=== PATIENT | male | born 1955 | race Caucasian/White ===

== ENCOUNTER 2018-12-22 22:29 | Emergency (ER) | payer SELFPAY ==
[2018-12-22 23:24] LABS: Absolute Lymphocytes (CBC) 0.7 K/uL (0.7-4.9); Eosinophils % 0.5 % (0-4.4); Hematocrit 54.3 % (39.6-49.0); Lymphocytes % 7.4 % (15.3-44.8); MPV 8.9 fL (7.6-11.3); Monocytes % 9.3 % (3.3-12.3); RBC Red Blood Cell Count 6.21 M/uL (4.33-5.43)
[2018-12-22 23:41] LABS: ALT/SGPT 12 U/L (12-78); AST/SGOT 13 U/L (15-37); Alkaline Phosphatase 137 U/L (45-117); BUN Blood Urea Nitrogen 12 mg/dL (7-18); Bicarbonate 30 mmol/L (21-32); Bilirubin Direct 0.7 mg/dL (0-0.2); Bilirubin Total 2.4 mg/dL (0.2-1.0); Glucose Level 270 mg/dL (74-106); Lipase 43 U/L (73-393); Potassium 3.7 mmol/L (3.5-5.1); Sodium Level 136 mmol/L (136-145)
[2018-12-22 23:42] LABS: Protime INR 1.27
[2018-12-22] MEDS ORDERED: NA CHLORIDE 0.9% 500 ML ONE (23:44)
--- NOTE | 2018-12-23 01:45 | ER ---
Nurse's Notes [facility] Name: Gavino Marin Age: 63 yrs Sex: Male : 1955 Arrival Date: 12/22/2018 Time: 22:32 Bed 26 Private MD: Diagnosis: Active gastrointestinal bleeding originating in ascending colon;Renal mass Presentation: 12/22 22:25 Presenting complaint: Patient states: that since 1999 he has had 3 moderate to large fc bloody stools. Denies any dizziness or abd pain. Transition of care: patient was not received from another setting of care. Onset of symptoms was December 22, 2018 at 20:00. Risk Assessment: Do you want to hurt yourself or someone else? Patient reports no desire to harm self or others. Initial Sepsis Screen: Does the patient meet any 2 criteria? HR > 90 bpm. Yes Does the patient have a suspected source of infection? No. Patient's initial sepsis screen is negative. Care prior to arrival: None. 22:25 Method Of Arrival: Ambulatory 22:25 Acuity: MAYKEL 3 fc Historical: - Allergies: 22:41 PENICILLINS; fc - Home Meds: 22:41 aspirin 325 mg Oral TbEC 1 tab once daily [Active]; fc - PMHx: 22:41 lymph edema; Myocardial infarction; fc - PSHx: 22:41 CABG; Hernia repair; fc - Immunization history:: Last tetanus immunization: unknown. - Social history:: Smoking status: Patient/guardian denies using tobacco, Patient uses alcohol, 2-[address] drugs, marijuana, daily. - Ebola Screening: : Patient negative for fever greater than or equal to 101.5 degrees Fahrenheit, and additional compatible Ebola Virus Disease symptoms Patient denies exposure to infectious person Patient denies travel to an Ebola-affected area in the 21 days before illness onset. - Family history:: not pertinent. - Hospitalizations: : No recent hospitalization is reported. Screenin:40 Abuse screen: Denies threats or abuse. Nutritional screening: No deficits noted. fc Tuberculosis screening: No symptoms or risk factors identified. Fall Risk None identified. Assessment: 23:40 General: Appears in no apparent distress. comfortable, Behavior is calm, cooperative, ca1 appropriate for age. Pain: Denies pain. Neuro: Level of Consciousness is awake, alert, obeys commands, Oriented to person, place, time, situation. Cardiovascular: Heart tones S1 S2 present Capillary refill < 3 seconds Patient's skin is warm and dry. Cardiovascular: Edema pitting to left knee, left midcalf, left ankle, left foot, left toes, right knee, right midcalf, right ankle, right foot and right toes. Respiratory: GI: Abdomen is round non-distended, Bowel sounds present X 4 quads. Abd is soft and non tender X 4 quads. Reports diarrhea, bloody stool, since today. : No deficits noted. No signs and/or symptoms were reported regarding the genitourinary system. EENT: No deficits noted. No signs and/or symptoms were reported regarding the EENT system. Derm: Skin is intact, is fragile, Skin is pink, warm \T\ dry. Musculoskeletal: Circulation, motion, and sensation intact. Capillary refill < 3 seconds, Range of motion: intact in all extremities. 12/23 00:46 Reassessment: Reassessment: Patient appears in no apparent distress at this time. ca1 Patient and/or family updated on plan of care and expected duration. Pain level reassessed. Patient is alert, oriented x 3, equal unlabored respirations, skin warm/dry/pink. 01:14 Reassessment: Patient appears in no apparent distress at this time. Patient and/or cc3 family updated on plan of care and expected duration. Pain level reassessed. Patient is alert, oriented x 3, equal unlabored respirations, skin warm/dry/pink. Dr. Escobar at bedside explaining to the patient his plan of care. Patient denies pain at this time. 02:00 Reassessment: Patient appears in no apparent distress at this time. Patient and/or cc3 family updated on plan of care and expected duration. Pain level reassessed. Patient is alert, oriented x 3, equal unlabored respirations, skin warm/dry/pink. Patient is for transfer to [facility] as a case of active gastrointestinal bleeding originating in ascending colon and renal mass. Report called and handed over to HALIMA Winn. Transfer form completed and signed by the patient himself. Ambulance transport contacted by ED airport clerk. 02:40 Reassessment: Patient passed watery stool, the female relative said the color is cc3 maroony red. 02:50 Reassessment: Patient appears in no apparent distress at this time. Patient and/or cc3 family updated on plan of care and expected duration. Pain level reassessed. Patient is alert, oriented x 3, equal unlabored respirations, skin warm/dry/pink. [facility] came for patient transport. Patient left ER vitally stable by EMS stretcher with his relative. No valuables left bedside. Patient denies pain at this time. Vital Signs: 12/22 22:25 BP 154 / 94; Pulse 106; Resp 19; Temp 97.0(O); Pulse Ox 97% on R/A; Weight 117.93 kg fc (R); Height 5 ft. 10 in. (177.80 cm) (R); Pain 0/10; 23:09 BP 104 / 74; Pulse 94; Resp 17 S; Pulse Ox 97% on R/A; ca1 12/23 00:46 BP 107 / 69; Pulse 106; Resp 19 S; Pulse Ox 97% on R/A; ca1 01:15 BP 92 / 58; Pulse 103; Resp 19 S; Pulse Ox 98% on R/A; cc3 01:43 BP 107 / 75; Pulse 100; Resp 18 S; Pulse Ox 96% on R/A; cc3 02:14 BP 140 / 73; Pulse 104; Resp 19 S; Pulse Ox 100% on R/A; cc3 02:30 BP 135 / 79; Pulse 101; Resp 18 S; Pulse Ox 100% on R/A; cc3 12/22 22:25 Body Mass Index 37.31 (117.93 kg, 177.80 cm) ED Course: 12/22 22:25 Arm band placed on Patient placed in an exam room, on a stretcher. fc 22:32 Patient arrived in ED. fc 22:34 Willard Escobar MD is Attending Physician. rn 22:38 Triage completed. fc 22:40 Patient has correct armband on for positive identification. Bed in low position. Call light in reach. Pulse ox on. NIBP on. 22:50 No provider procedures requiring assistance completed. Inserted saline lock: 20 gauge ca1 in left antecubital area, using aseptic technique. Blood collected. 23:02 Abbie Edmonds, HALIMA is Primary Nurse. ca1 12/23 00:[address] via wheelchair. ca1 00:25 CT completed. Patient tolerated procedure well. Patient moved back from NH. 00:42 CT Abd/Pelvis - IV Contrast Only In Process Unspecified. EDMS 02:08 Inserted 18 gauge 10 cm midline to right upper arm basilic vein on first attempt. Line fc with good blood return and flushes well. 02:55 Patient transferred, IV remains in place. cc3 Administered Medications: 12/22 23:30 Drug: NS 0.9% 500 ml Route: IV; Rate: bolus; Site: left antecubital; cc3 23:53 Follow up: IV Status: Completed infusion ca1 12/23 01:35 Drug: NS 0.9% 1000 ml Route: IV; Rate: 1000 ml; Site: left antecubital; cc3 02:19 Follow up: Response: No adverse reaction; IV Status: Completed infusion; IV Intake: cc3 1000ml Intake: 02:19 IV: 1000ml; Total: 1000ml. cc3 Outcome: 01:44 ER care complete, transfer ordered by . rn 02:55 Transferred by ground EMS to [facility], Transfer form completed. cc3 02:55 Condition: stable 02:55 Instructed on the need for transfer, Demonstrated understanding of instructions. 02:56 Patient left the ED. cc3 Signatures: Dispatcher [employer] EDWI Soren Valles Neelima Brothers, RN RN Willard Escobar MD MD rn Cordel, Charlene [facility] Abbie Edmonds RN RN ca1 Corrections: (The following items were deleted from the chart) 00:46 00:24 Reassessment: ca1 ca1 03:01 02:40 Reassessment: Patient passed again watery stool, the female relative said the cc3 color is maroony red. cc3
--- NOTE | 2018-12-23 01:45 | EDPHYS ---
Physician Documentation [facility] Name: Gavino Marin Age: 63 yrs Sex: Male : 1955 Arrival Date: 12/22/2018 Time: 22:32 Bed 26 Private MD: ED Physician Willard Escobar HPI: 12/22 23:06 This 63 yrs old Male presents to ER via Ambulatory with complaints of Rectal rn Bleeding. 23:06 The patient presents to the emergency department with bleeding from the rectum/anus, rn that is moderate. Onset: The symptoms/episode began/occurred today. Modifying factors: The symptoms are alleviated by nothing, The symptoms are aggravated by bowel movement. Associate signs and symptoms: Pertinent positives: lower GI bleeding, Pertinent negatives: abdominal pain, fever, vomiting. The patient has not experienced similar symptoms in the past. REports was drinking a beer, felt like needed to go to bathroom, moderate amount of bright red blood per rectum and maroon blood, no abd pain, no vomiting, drinks daily but no hx of cirrhosis, takes baby aspirin.. Historical: - Allergies: 22:41 PENICILLINS; fc - Home Meds: 22:41 aspirin 325 mg Oral TbEC 1 tab once daily [Active]; fc - PMHx: 22:41 lymph edema; Myocardial infarction; fc - PSHx: 22:41 CABG; Hernia repair; fc - Immunization history:: Last tetanus immunization: unknown. - Social history:: Smoking status: Patient/guardian denies using tobacco, Patient uses alcohol, 2-[address] drugs, marijuana, daily. - Ebola Screening: : Patient negative for fever greater than or equal to 101.5 degrees Fahrenheit, and additional compatible Ebola Virus Disease symptoms Patient denies exposure to infectious person Patient denies travel to an Ebola-affected area in the 21 days before illness onset. - Family history:: not pertinent. - Hospitalizations: : No recent hospitalization is reported. ROS: 23:06 Constitutional: Negative for fever, chills, and weight loss, Eyes: Negative for injury, rn pain, redness, and discharge, Neck: Negative for injury, pain, and swelling, Cardiovascular: Negative for chest pain, palpitations, and edema, Respiratory: Negative for shortness of breath, cough, wheezing, and pleuritic chest pain, Abdomen/GI: Negative for abdominal pain, nausea, vomiting, + rectal bleeding MS/Extremity: Negative for injury and deformity, Skin: Negative for injury, rash, and discoloration, Neuro: Negative for headache, numbness, tingling, and seizure, + lightheaded Exam: 23:06 Constitutional: This is a well developed, well nourished patient who is awake, alert, rn appears anxious, but not pale Head/Face: Normocephalic, atraumatic. Eyes: Pupils equal round and reactive to light, extra-ocular motions intact. Lids and lashes normal. Conjunctiva and sclera are non-icteric and not injected. Cornea within normal limits. Periorbital areas with no swelling, redness, or edema. ENT: MMM Cardiovascular: tachycardic, regular, no murmur Respiratory: Mild tachypnea, no retractions, speaks full sentences Abdomen/GI: soft, non-tender, non-distended, no masses MS/ Extremity: + bilateral lymphedema, no warmth or bullae Neuro: Awake and alert, GCS 15, oriented to person, place, time, and situation. Cranial nerves II-XII grossly intact. Motor strength 5/5 in all extremities. Sensory grossly intact. Cerebellar exam normal. Normal gait. Vital Signs: 22:25 BP 154 / 94; Pulse 106; Resp 19; Temp 97.0(O); Pulse Ox 97% on R/A; Weight 117.93 kg fc (R); Height 5 ft. 10 in. (177.80 cm) (R); Pain 0/10; 23:09 BP 104 / 74; Pulse 94; Resp 17 S; Pulse Ox 97% on R/A; ca1 12/23 00:46 BP 107 / 69; Pulse 106; Resp 19 S; Pulse Ox 97% on R/A; ca1 01:15 BP 92 / 58; Pulse 103; Resp 19 S; Pulse Ox 98% on R/A; cc3 01:43 BP 107 / 75; Pulse 100; Resp 18 S; Pulse Ox 96% on R/A; cc3 02:14 BP 140 / 73; Pulse 104; Resp 19 S; Pulse Ox 100% on R/A; cc3 02:30 BP 135 / 79; Pulse 101; Resp 18 S; Pulse Ox 100% on R/A; cc3 12/22 22:25 Body Mass Index 37.31 (117.93 kg, 177.80 cm) fc MDM: 12/22 22:34 Patient medically screened. rn 23:16 ED course: Pt hard large amount of bright red blood pass here in bathroom, I looked at rn toilet, mainly blood, very little stool. . 12/23 01:11 ED course: Pt with active bleed seen mid ascending colon, paged Dr. Benito, his INFRASTRUCTURE DESIGN ENGINEER rn answered, she states will try and get a hold of him and get back to me. . 01:19 ED course: Dr. Benito requests transfer for possible interventional radiology given rn right sided bleeding and extravasation on CT.. 01:33 Differential diagnosis: bleeding diverticula. Data reviewed: vital signs, nurses notes, machine lead burner test result(s), radiologic studies, CT scan, and as a result, I will admit patient. Counseling: I had a detailed discussion with the patient and/or guardian regarding: the historical points, exam findings, and any diagnostic results supporting the discharge/admit diagnosis, lab results, radiology results, the need to transfer to another facility, for higher level of care, [facility] does not immediately have the required specialist. Response to treatment: the patient's symptoms have mildly improved after treatment, and as a result, I will admit patient. Admission orders: after a detailed discussion of the patient's condition and case, the admit orders are written by me. ED course: Pt with small drop in BP, now 90/57, new fluid bolus ordered, is sitting upright in recliner, awaiting call back from [facility]. . 01:41 ED course: Accepted by GI and ICU doctor at [facility], is NPO, fluids going, will need rn embolization. . 02:15 ED course: Larger midline placed, BP improving with fluids. No longer feels rn lightheaded. . 12/22 22:35 Order name: Basic Metabolic Panel; Complete Time: 00:36 rn 12/22 22:35 Order name: CBC with Diff; Complete Time: 23:38 rn 12/22 22:35 Order name: Hepatic Function; Complete Time: 00:36 rn 12/22 22:35 Order name: Lipase; Complete Time: 00:36 rn 12/22 22:35 Order name: PT-INR; Complete Time: 00:36 rn 12/22 22:35 Order name: Ptt, Activated; Complete Time: 00:36 rn 12/22 22:35 Order name: IV Saline Lock; Complete Time: 23:54 rn 12/22 22:35 Order name: Labs collected and sent; Complete Time: 23:54 rn 12/22 22:35 Order name: Type And Screen; Complete Time: 00:36 rn 12/22 23:08 Order name: CT Abd/Pelvis - IV Contrast Only rn 12/23 01:41 Order name: NPO; Complete Time: 01:42 rn Administered Medications: 12/22 23:30 Drug: NS 0.9% 500 ml Route: IV; Rate: bolus; Site: left antecubital; cc3 23:53 Follow up: IV Status: Completed infusion ca1 12/23 01:35 Drug: NS 0.9% 1000 ml Route: IV; Rate: 1000 ml; Site: left antecubital; cc3 02:19 Follow up: Response: No adverse reaction; IV Status: Completed infusion; IV Intake: cc3 1000ml Disposition: 12/23/18 01:44 Transfer ordered to [facility]. Diagnosis are Active gastrointestinal bleeding originating in ascending colon, Renal mass. - Reason for transfer: Higher level of care. - Accepting physician is Dr. Mcdaniels. - Condition is Fair. - Problem is new. - Symptoms are unchanged. Critical care time excluding procedures: 01:41 Critical care time: Bedside Care: 25 minutes, Consultation: 5 minutes. Total time: 30 rn minutes Signatures: Dispatcher [employer] EDNeelima Rosen RN RN fc Nieto, Roman, MD MD rn Cordel, Charlene cc3 Abbie Edmonds RN ca1 Corrections: (The following items were deleted from the chart) 02:56 01:44 12/23/2018 01:44 Transfer ordered to [facility]. Diagnosis is cc3 Active gastrointestinal bleeding originating in ascending colon; Renal mass. Reason for transfer: Higher level of care. Accepting physician is Dr. Mcdaniels. Condition is Fair. Problem is new. Symptoms are unchanged. rn
[2018-12-23] MEDS ORDERED: NA CHLORIDE 0.9% 1,000 ML ONE (01:52)
--- NOTE | 2018-12-23 12:36 | RAD REPORT ---
EXAM DESCRIPTION: CT - Abdomen Pelvis W Contrast - 12/23/2018 7:16 am ADDENDUM #1 THIS REPORT CONTAINS FINDINGS THAT MAY BE CRITICAL TO PATIENT CARE: The findings were verbally discu ssed via telephone conference with Dr. Willard Escoabr by Dr. Jayme Quijano on 12/23/2018 12:55 AM CDT. The results were acknowledged and understood. Electronically signed by: Jayme Quijano 12/23/2018 1:07 AM CDT End of Addendum EXAM DESCRIPTION: CT ABDOMEN AND PELVIS WITH CONTRAST CLINICAL HISTORY: LOWER GI BLEED COMPARISON: None Available. TECHNIQUE: CT of the abdomen and pelvis performed following IV administration of iodinated contrast. Arterial, venous, and delayed phase imaging obtained. DLP: 3572.2 mGycm FINDINGS: Lung Bases: Small bilateral pleural effusions. Coronary artery atherosclerosis. Bones: Degenerative endplate spondylosis and facet arthropathy. Abdomen: Liver: The liver has normal size and density. No intrahepatic mass or biliary dilatation. Gallbladder: No calcified gallstones. Spleen, Pancreas, and Adrenal Glands: The spleen, pancreas, and adrenal glands are unremarkable. Kidneys: There is a heterogeneous enhancing mass arising from the right kidney measuring 9.7 x 9.9 x 9.4 cm. No hydronephrosis. No definite involvement of the right renal vein. Vasculature: Aortoiliac atherosclerosis. IVC is unremarkable. Fusiform infrarenal abdominal aortic an eurysm measuring 3.4 cm. The portal vein is patent. The proximal visceral and renal arteries are zepeda nt. Stomach: The stomach and duodenum have normal course. Other: No free intraperitoneal air. Fat-containing umbilical hernia. Postoperative change in the an terior abdominal wall. No free fluid or lymphadenopathy. Pelvis: Bladder: Urinary bladder is unremarkable. Bowel: Active contrast extravasation identified in the ascending colon appearing to arise from an a nterior diverticulum. Scattered diverticula throughout the colon. No pelvic inflammatory change. No d ilated loops of large or small bowel. Appendix: Normal appendix. Pelvis: Prostate is not enlarged. IMPRESSION: 1. Findings compatible with active bleeding in the mid ascending colon likely arising fr om an anterior diverticulum. 2. Large heterogeneous right renal mass measuring 9.9 cm in greatest dimension compatible with renal cell carcinoma. 3. 3.4 cm abdominal aortic aneurysm. Recommend follow-up every 3 years. Reference: J Am Tory Radiol 2013;10:789-794. 4. Small bilateral pleural effusions. This exam was performed according to our departmental dose-optimization program, which includes autom ated exposure control, adjustment of the mA and/or kV according to patient size and/or use of iterati ve reconstruction technique. Electronically signed by: Jayme Quijano 12/23/2018 12:59 AM CDT Due to temporary technical issues with the PACS/Fluency reporting system, reports are being signed by the in house radiologist as a courtesy to ensure prompt reporting. The interpreting radiologist is f ully responsible for the content of the report.
== END 2018-12-23 02:56 | disposition short-term general hospital (02) ==
LOC: ER 22:29
DX: K92.2 Gastrointestinal hemorrhage, unspecified (principal); N28.89 Other specified disorders of kidney and ureter; I25.2 Old myocardial infarction; Z88.0 Allergy status to penicillin; Z79.82 Long term (current) use of aspirin
CPT/HCPCS: 36415; 74177; 80048; 80076; 83690; 85025; 85610; 85730; 86850; 86900; 86901; 96360; 99285; J7030; Q9967

== ENCOUNTER 2019-11-13 09:40 | Emergency (ER) | payer OTHER, BC ==
--- OUTSIDE RECORDS SUMMARY | 2019-11-13 09:45 | XMS REPORT | Clinical Summary ---
:1955 Author Organization [facility] Address [address] [place] [address] Care Team Providers Name Role Phone Unavailable Primary Care Provider Unavailable Allergies Active Allergy Reactions Severity Noted Date Comments Penicillins 12/23/2018 Mother had PCN allergy, states children were "tested fo r allergy" and was told he was allergic Medications Medication Sig Dispensed Refills Start Date End Date Status aspirin 81 MG Take 1 tablet 30 tablet 11 12/29/2018 A ctive chewable tablet (81 mg total) 0 by mouth daily. carvedilol (COREG) Take 1 tablet 60 tablet 11 12/29/2018 Active 3.125 MG tablet (3.125 mg 0 total) by mouth 2 (two) times daily. atorvastatin Take 1 tablet 30 tablet 11 12/29/2018 Ac tive (LIPITOR) 40 MG (40 mg total) 0 tablet by mouth nightly. metFORMIN Take 1 tablet 60 tablet 11 12/29/2018 Activ e (GLUCOPHAGE) 850 (850 mg total) 0 MG tablet by mouth 2 (two) times daily with breakfast and dinner. glipiZIDE Take 1 tablet 60 tablet 11 12/29/2018 Activ e (GLUCOTROL) 5 MG (5 mg total) by 0 tablet mouth 2 (two) times daily before meals. aspirin 325 MG Take 325 mg by 0 Discontinued tablet mouth daily. 9 pantoprazole Take 1 tablet 30 tablet 0 12/29/2018 Ex pired (PROTONIX) 40 MG (40 mg total) 9 tablet by mouth daily for 30 days. tamsulosin Take 1 capsule 30 capsule 1 12/29/2018 Ex pired (FLOMAX) 0.4 mg (0.4 mg total) 9 Cap 24 hr capsule by mouth daily for 30 days. Active Problems Problem Noted Date GI bleed 12/23/2018 Encounters Date Type Specialty Care Team Description 12/27/2018 Orders Only General Internal Medicine 12/26/2018 Anesthesia Event Gastroenterology Armando Woo MD 12/26/2018 Surgery Gastroenterology Joshua Harper, COLONOSCO RAIN,POLYPECTO MD RILEY 12/23/2018 Hospital General Internal Terrence Paul, Acute b lood loss anemia; - Encounter Medicine Jonathan Huston, Gastrointest inal hemorrhage associated with intestinal diverticulosis; 12/29/2018 Type 2 diabetes mellitus with hyperglyce patel, without long-term current use of insulin ([facility]); Ant, Morbid obesity with BMI of 40.0-44.9, adult ([facility]); Jayme Gastrointestina l hemorrhage, unspecified gastrointestinal hemorrhage type; MD Natalie DEANNA (acute kidney injury) ([facility]); Marcial Cash, Bilateral r enal masses; MD Francesco [place] ma; Coronary artery disease involving wainwright coronary artery of wainwright heart without angina pectoris; Hx of CABG; Preop cardiovas cular exam; Urinary obstruc tion; Preoperative ca rdiovascular examination 12/23/2018 Travel after 11/12/2018 Social History Tobacco Use Types Packs/Day Years Used Date Former Smoker Cigarettes 0.5 20 Smokeless Tobacco: Never Used Alcohol Use Drinks/Week oz/Week Comments Yes 21 Cans of beer 12.6 7-8 cans daily Alcohol Habits Answer Date Recorded How often do you have a drink containing 4 or more times a w [place] 12/27/2018 alcohol? How many drinks containing alcohol do you have 7 to 9 12/27/2018 on a typical day when you are drinking? How often do you have six or more drinks on one Daily or shekhar ost daily 12/27/2018 occasion? Sex Assigned at Date Recorded Not on file Job Start Date Occupation Industry Not on file Not on file Not on file Travel History Travel Start Travel End No recent travel history available. Last Filed Vital Signs Vital Sign Reading Time Taken Blood Pressure 137/63 12/29/2018 7:56 AM CDT Pulse 88 12/29/2018 8:10 AM CDT Temperature 36.2 C (97.2 F) 12/29/2018 7:56 AM CDT Respiratory Rate 16 12/29/2018 8:10 AM CDT Oxygen Saturation 98% 12/29/2018 8:10 AM CDT Inhaled Oxygen Concentration - - Weight 124.7 kg (275 lb) 12/29/2018 6:00 AM CDT Height 177.8 cm (5' 10") 12/23/2018 4:00 AM CDT Body Mass Index 39.46 12/29/2018 6:00 AM CDT Plan of Treatment Not on file Procedures Procedure Name Priority Date/Time Associated Comments Diagnosis RHYTHM STRIP - SCAN 12/31/2018 2:40 PM CDT TRANSFUSION SERVICE 12/29/2018 5:50 REPORT - SCAN PM CDT POCT-GLUCOSE METER Routine 12/29/2018 8:39 Resul ts for this AM CDT procedure are i n the results section. CBC W/PLT COUNT & AUTO Routine 12/29/2018 4:36 R esults for this DIFFERENTIAL AM CDT procedure are i n the results section. CBC W/PLT COUNT & AUTO Routine 12/29/2018 4:36 R esults for this DIFFERENTIAL AM CDT procedure are i n the results section. MAGNESIUM Routine 12/29/2018 4:36 Results for this AM CDT procedure are i n the results section. BASIC METABOLIC PANEL Routine 12/29/2018 4:36 Re sults for this (7) AM CDT procedure are i n the results section. PREPARE LEUKO-REDUCED Routine 12/28/2018 11:54 Re sults for this RBC PM CDT procedure are i n the results section. POCT-GLUCOSE METER Routine 12/28/2018 10:28 Resul ts for this PM CDT procedure are i n the results section. PERIPHERAL VASCULAR 12/28/2018 9:12 REPORT - SCAN PM CDT CT CHEST WITH IV Routine 12/28/2018 8:26 Results for this CONTRAST PM CDT procedure are i n the results section. POCT-GLUCOSE METER Routine 12/28/2018 7:06 Resul ts for this PM CDT procedure are i n the results section. TRANSFUSION SERVICE 12/28/2018 5:51 REPORT - SCAN PM CDT POCT-GLUCOSE METER Routine 12/28/2018 1:03 Resul ts for this PM CDT procedure are i n the results section. POCT-GLUCOSE METER Routine 12/28/2018 12:28 Resul ts for this PM CDT procedure are i n the results section. NM MYOCARDIAL PERFUSION Routine 12/28/2018 11:19 Results for this SPECT, PHARM(LEXISCAN) AM CDT proce dure are in the results section. ARTERIAL (VERONICA'S W/ Routine 12/28/2018 10:01 Resul ts for this DOPPLER) ONLY AM CDT procedure are in the results section. POCT-GLUCOSE METER Routine 12/28/2018 8:06 Resul ts for this AM CDT procedure are i n the results section. POCT-GLUCOSE METER Routine 12/28/2018 7:15 Resul ts for this AM CDT procedure are i n the results section. CBC W/PLT COUNT & AUTO Routine 12/28/2018 6:22 R esults for this DIFFERENTIAL AM CDT procedure are i n the results section. CBC W/PLT COUNT & AUTO Routine 12/28/2018 6:22 R esults for this DIFFERENTIAL AM CDT procedure are i n the results section. MAGNESIUM Routine 12/28/2018 6:22 Results for this AM CDT procedure are i n the results section. BASIC METABOLIC PANEL Routine 12/28/2018 6:22 Re sults for this (7) AM CDT procedure are i n the results section. ECHOCARDIOGRAM REPORT - 12/27/2018 9:11 SCAN PM CDT POCT-GLUCOSE METER Routine 12/27/2018 9:06 Resul ts for this PM CDT procedure are i n the results section. TRANSFUSE LEUKO-REDUCED Routine 12/27/2018 8:16 RED BLOOD CELLS PM CDT POCT-GLUCOSE METER Routine 12/27/2018 6:02 Resul ts for this PM CDT procedure are i n the results section. POCT-GLUCOSE METER Routine 12/27/2018 1:46 Resul ts for this PM CDT procedure are i n the results section. TREADMILL Routine 12/27/2018 10:37 Results for this TOLERANCE(NON-NUCLEAR AM CDT proced ure are in TREADMILL) the results section. ECG 12-LEAD Routine 12/27/2018 10:17 Results for this AM CDT procedure are i n the results section. ECG 12-LEAD Routine 12/27/2018 10:17 AM CDT Procedure Note - Interface, External Ris In - 12/27/2018 10:54 AM CDT Ventricular Rate 85 BPM Atrial Rate 85 BPM P-R Interval 218 ms QRS Duration 122 ms Q-T Interval 406 ms QTC Calculation(Bazett) 483 ms P [place] 37 degrees R [place] 90 degrees T [place] 163 degrees Sinus rhythm with 1st degree A-V block with occasional Premature ventricular complexes ST & T wave abnormality, con environmental maintenance worker inferolateral ischemia Abnormal ECG TYPE AND SCREEN, Routine 12/27/2018 8:49 Results for AUTOMATED AM CDT this procedure are in the results section. POCT-GLUCOSE METER Routine 12/27/2018 8:36 Resul ts for AM CDT this procedure are in the results section. CBC W/PLT COUNT & Routine 12/27/2018 4:26 Result s for AUTO DIFFERENTIAL AM CDT this proce dure are in the results section. HEMOGLOBIN A1C Routine 12/27/2018 4:26 Results f or AM CDT this procedure are in the results section. LIPID PANEL Routine 12/27/2018 4:26 Results for AM CDT this procedure are in the results section. CBC W/PLT COUNT & Routine 12/27/2018 4:26 Result s for AUTO DIFFERENTIAL AM CDT this proce dure are in the results section. MAGNESIUM Routine 12/27/2018 4:26 Results for AM CDT this procedure are in the results section. BASIC METABOLIC Routine 12/27/2018 4:26 Results for PANEL (7) AM CDT this procedure are in the results section. POCT-GLUCOSE METER Routine 12/26/2018 9:52 Resul ts for PM CDT this procedure are in the results section. POCT-GLUCOSE METER Routine 12/26/2018 5:29 Resul ts for PM CDT this procedure are in the results section. ECG 12-LEAD Routine 12/26/2018 4:31 Results for PM CDT this procedure are in the results section. HEMOGLOBIN AND Routine 12/26/2018 4:13 Results f or HEMATOCRIT PM CDT this procedure are in the results section. POCT-GLUCOSE METER Routine 12/26/2018 2:32 Resul ts for PM CDT this procedure are in the results section. 2D ECHO W/ DOPPLER Routine 12/26/2018 2:28 Resul ts for (CW/PW/COLOR) PM CDT this procedure are in the results section. REPORT OF PROCEDURE 12/26/2018 12:36 - ENDOSCOPY URL PM CDT TISSUE EXAM AP Routine 12/26/2018 12:23 Results for PM CDT this procedure are in the results section. COLONOSCOPY,POLYPEC 12/26/2018 11:48 Gastrointestinal EMBER AM CDT hemorrhage, unspecified gastrointestinal hemorrhage type POCT-GLUCOSE METER Routine 12/26/2018 8:05 Resul ts for AM CDT this procedure are in the results section. CBC W/PLT COUNT & Routine 12/26/2018 7:38 Result s for AUTO DIFFERENTIAL AM CDT this proce dure are in the results section. HEMOGLOBIN AND STAT 12/26/2018 7:38 Results f or HEMATOCRIT AM CDT this procedure are in the results section. CBC W/PLT COUNT & Routine 12/26/2018 7:38 Result s for AUTO DIFFERENTIAL AM CDT this proce dure are in the results section. B-TYPE NATRIURETIC Routine 12/26/2018 7:32 Resul ts for FACTOR (BNP) AM CDT this procedure are in the results section. MAGNESIUM Routine 12/26/2018 7:32 Results for AM CDT this procedure are in the results section. BASIC METABOLIC Routine 12/26/2018 7:32 Results for PANEL (7) AM CDT this procedure are in the results section. US RENAL COMPLETE Routine 12/26/2018 6:25 Result s for AM CDT this procedure are in the results section. HEMOGLOBIN AND STAT 12/26/2018 1:01 Results f or HEMATOCRIT AM CDT this procedure are in the results section. POCT-GLUCOSE METER Routine 12/25/2018 9:52 Resul ts for PM CDT this procedure are in the results section. URINALYSIS W/ Routine 12/25/2018 6:27 Results fo r MICROSCOPIC PM CDT this procedure are in the results section. SODIUM, RANDOM BELKIS 12/25/2018 6:27 Results f or URINE PM CDT this procedure are in the results section. PROTEIN, RANDOM Routine 12/25/2018 6:27 Results for URINE PM CDT this procedure are in the results section. CREATININE, RANDOM Routine 12/25/2018 6:27 Resul ts for URINE PM CDT this procedure are in the results section. TRANSFUSION SERVICE 12/25/2018 5:51 REPORT - SCAN PM CDT POCT-GLUCOSE METER Routine 12/25/2018 5:08 Resul ts for PM CDT this procedure are in the results section. HEMOGLOBIN AND STAT 12/25/2018 2:45 Results f or HEMATOCRIT PM CDT this procedure are in the results section. POCT-GLUCOSE METER Routine 12/25/2018 12:02 Resul ts for PM CDT this procedure are in the results section. POCT-GLUCOSE METER Routine 12/25/2018 7:47 Resul ts for AM CDT this procedure are in the results section. HEMOGLOBIN AND STAT 12/25/2018 6:18 Results f or HEMATOCRIT AM CDT this procedure are in the results section. CBC W/PLT COUNT & Routine 12/25/2018 2:59 Result s for AUTO DIFFERENTIAL AM CDT this proce dure are in the results section. B-TYPE NATRIURETIC Routine 12/25/2018 2:59 Resul ts for FACTOR (BNP) AM CDT this procedure are in the results section. CBC W/PLT COUNT & Routine 12/25/2018 2:59 Result s for AUTO DIFFERENTIAL AM CDT this proce dure are in the results section. MAGNESIUM Routine 12/25/2018 2:59 Results for AM CDT this procedure are in the results section. BASIC METABOLIC Routine 12/25/2018 2:59 Results for PANEL (7) AM CDT this procedure are in the results section. HEMOGLOBIN AND STAT 12/25/2018 2:59 Results f or HEMATOCRIT AM CDT this procedure are in the results section. POCT-GLUCOSE METER Routine 12/24/2018 9:00 Resul ts for PM CDT this procedure are in the results section. HEMOGLOBIN AND STAT 12/24/2018 6:00 Results f or HEMATOCRIT PM CDT this procedure are in the results section. TRANSFUSION SERVICE 12/24/2018 5:52 REPORT - SCAN PM CDT POCT-GLUCOSE METER Routine 12/24/2018 5:17 Resul ts for PM CDT this procedure are in the results section. HEMOGLOBIN A1C Routine 12/24/2018 12:07 Results f or PM CDT this procedure are in the results section. POCT-GLUCOSE METER Routine 12/24/2018 11:30 Resul ts for AM CDT this procedure are in the results section. POCT-GLUCOSE METER Routine 12/24/2018 7:48 Resul ts for AM CDT this procedure are in the results section. PREPARE Routine 12/24/2018 5:33 Results for LEUKO-REDUCED RBC AM CDT this proce dure are in the results section. (CELLAVISION MANUAL Routine 12/24/2018 3:50 Resu lts for DIFF) AM CDT this procedure are in the results section. CBC W/PLT COUNT & Routine 12/24/2018 3:50 Result s for AUTO DIFFERENTIAL AM CDT this proce dure are in the results section. CBC W/PLT COUNT & Routine 12/24/2018 3:50 Result s for AUTO DIFFERENTIAL AM CDT this proce dure are in the results section. MAGNESIUM Routine 12/24/2018 3:50 Results for AM CDT this procedure are in the results section. BASIC METABOLIC Routine 12/24/2018 3:50 Results for PANEL (7) AM CDT this procedure are in the results section. HEMOGLOBIN AND STAT 12/24/2018 12:13 Results f or HEMATOCRIT AM CDT this procedure are in the results section. MAGNESIUM STAT 12/24/2018 12:13 Results for AM CDT this procedure are in the results section. POCT-GLUCOSE METER Routine 12/23/2018 10:14 Resul ts for PM CDT this procedure are in the results section. HEMOGLOBIN AND STAT 12/23/2018 6:27 Results f or HEMATOCRIT PM CDT this procedure are in the results section. CBC W/PLT COUNT & Routine 12/23/2018 12:00 Result s for AUTO DIFFERENTIAL PM CDT this proce dure are in the results section. CBC W/PLT COUNT & Routine 12/23/2018 12:00 Result s for AUTO DIFFERENTIAL PM CDT this proce dure are in the results section. MAGNESIUM Routine 12/23/2018 12:00 Results for PM CDT this procedure are in the results section. LIPID PANEL Routine 12/23/2018 12:00 Results for PM CDT this procedure are in the results section. HEMOGLOBIN AND STAT 12/23/2018 12:00 Results f or HEMATOCRIT PM CDT this procedure are in the results section. POCT-GLUCOSE METER Routine 12/23/2018 11:17 Resul ts for AM CDT this procedure are in the results section. IR EMBOLIZATION Routine 12/23/2018 10:08 Results for BLEED AM CDT this procedure are in the results section. CT ABDOMEN/PELVIS STAT 12/23/2018 7:59 Result s for WITH & WITHOUT IV AM CDT this proce dure CONTRAST are in the results section. ABORH, MANUAL STAT 12/23/2018 5:58 Results fo r AM CDT this procedure are in the results section. HEMOGLOBIN A1C Routine 12/23/2018 5:58 Results f or AM CDT this procedure are in the results section. HEMOGLOBIN AND STAT 12/23/2018 4:56 Results f or HEMATOCRIT AM CDT this procedure are in the results section. TYPE AND SCREEN, Routine 12/23/2018 4:54 Results for AUTOMATED AM CDT this procedure are in the results section. PROTHROMBIN Routine 12/23/2018 4:52 Results for TIME/INR AM CDT this procedure are in the results section. BASIC METABOLIC Routine 12/23/2018 4:52 Results for PANEL (7) AM CDT this procedure are in the results section. after 11/12/2018 Results RHYTHM STRIP - SCAN (12/31/2018 2:40 PM CDT) Narrative Performed At This result has an attachment that is no t available. TRANSFUSION SERVICE REPORT - SCAN (12/29/2018 5:50 PM CDT)Only the most recent of4 resultswithin the time period is included. Narrative Performed At This result has an attachment that is no t available. POC-Glucose meter (12/29/2018 8:39 AM CDT)Only the most recent of25 results within the time period is included. POC-Glucose Meter 136 (H)Comment: TESTED AT 70 - 110 mg/dL [address] [id number] Specimen Blood Performing Organization Address City/State/Zipcode Phone Number [address] [address] CENTER CBC with platelet count + automated diff (12/29/2018 4:36 AM CDT)Only the most recent of7 resultswithin the time period is included. WBC 6.5 3.5 - 10.5 K/L [facility] RBC 2.63 (L) 4.63 - 6.08 M/L [facility] Hemoglobin 7.4 (L) 13.7 - 17.5 GM/DL [facility] Hematocrit 23.8 (L) 40.1 - 51.0 % [facility] MCV 90.5 79.0 - 92.2 fL [facility] MCH 28.1 25.7 - 32.2 pg [facility] MCHC 31.1 (L) 32.3 - 36.5 GM/DL [facility] RDW 16.0 (H) 11.6 - 14.4 % [facility] Platelets 175 150 - 450 K/CU MM [facility] MPV 10.2 9.4 - 12.4 fL [facility] nRBC 0 0 - 0 /100 WBC [facility] % Neutros 67 % [facility] % Lymphs 11 % [facility] % Monos 17 % [facility] % Eos 4 % [facility] % Baso 0 % [facility] # Neutros 4.35 1.78 - 5.38 K/L [facility] # Lymphs 0.72 (L) 1.32 - 3.57 K/L [facility] # Monos 1.09 (H) 0.30 - 0.82 K/L [facility] # Eos 0.23 0.04 - 0.54 K/L [facility] # Baso 0.02 0.01 - 0.08 K/L [facility] Immature Granulocytes-Relative 1 0 - 1 % C [facility] Specimen Blood Performing Organization Address City/State/Zipcode Phone Number [address] [address] CENTER Magnesium (12/29/2018 4:36 AM CDT)Only the most recent of8 resultswithin the time period is included. Magnesium 1.8 1.6 - 2.6 mg/dL [facility] Specimen Blood Performing Organization Address City/State/Zipcode Phone Number [address] [address] CENTER Basic Metabolic Panel (12/29/2018 4:36 AM CDT)Only the most recent of7 results within the time period is included. Sodium 137 136 - 145 meq/L [facility] Potassium 3.7 3.5 - 5.1 meq/L [facility] Chloride 105 98 - 107 meq/L [facility] CO2 27 22 - 29 meq/L [facility] BUN 12 7 - 21 mg/dL [facility] Creatinine 0.81 0.57 - 1.25 mg/dL [facility] Glucose 124 (H) 70 - 105 mg/dL [facility] Calcium 7.6 (L) 8.4 - 10.2 mg/dL [facility] EGFR 96Comment: ESTIMATED GFR IS mL/min/1.73 sq m [facility] NOT ACCURATE CREATININE IA DICAL CENTER CLEARANCE IN PREDICTING GLOMERULAR FILTRATION RATE. ESTIMATED GFR IS NOT APPLICABLE FOR DIALYSIS PATIENTS. Specimen Blood Performing Organization Address City/[facility]/Zipcode Phone Number [facility] [address] [place] [address] CENTER Prepare Leuko-Red RBC (12/28/2018 11:54 PM CDT)Only the most recent of2 results within the time period is included. CROSSMATCH COMPATIBLE SAFETRACE TX Unit ABO O Pos SAFET[employer]ACE TX UNIT NUMBER [id number] [employer] TX Status TX_TIMEINCHART [employer]AFET[employer]ACE TX Blood Bank Product RED BLOOD CELLS [employer] TX PRODUCT CODE [id number] [employer] [place] Specimen Other Performing Organization Address City/[facility] Phone Number [employer] [place] PERIPHERAL VASCULAR REPORT - SCAN (12/28/2018 9:12 PM CDT) Narrative Performed At This result has an attachment that is no t available. CT chest with IV contrast (12/28/2018 8:26 PM CDT) Specimen Narrative Performed At FINAL REPORT [facility] EXAMINATION: Noncontrast chest CT. CLINICAL HISTORY: Renal mass. Evaluate f or pulmonary nodule/metastatic disease. COMPARISON EXAM: Abdominal CT 12/23/2018 TECHNIQUE: Following the administration of IV contrast, axial tomographic images were acquired through the thorax. The exam was performed according to our departmental dose optimization program which includes auto mated exposure control, adjustment of the mA and/or kV according to patient's size and/or use of iterative reconstructive technique. FINDINGS: The thoracic aorta is mildly ectatic. Di ffuse atherosclerotic changes are also noted involving the aorta inclu ding a relatively large volume of calcified and noncalcified debra que involving the descending segment. No evidence of an aortic dissec tion or aortic rupture. The pulmonary trunk is dilated measuring 3.5 cm. The central pulmonary arteries are also mildly dilat ed. No evidence of a discrete filling defect-embolus within the centra l pulmonary arteries. Evaluation of the small peripheral pulmo nary arteries is limited by non-PE protocol technique. The heart is mild-moderately enlarged. N o evidence of a pericardial effusion. There are numerous small shott y nonspecific lymph nodes in the mediastinum. The esophagus is decomp ressed. There are relatively symmetric small mirian ateral pleural effusions. Consolidation involving the dependent po rtion of the lung bases is compatible with associated passive atele ctasis. No definite evidence of a discrete pneumonia, pulmonary edema , pleural effusion or pneumothorax. Although there is no definite evidence o f a discrete pulmonary nodule, the evaluation of the lungs is m ildly limited by motion degradation. Trachea and central airways demonstrate senescent changes of aging. No definite evidence of discrete endobro nchial lesion or significant airway endoluminal debris. The patient is status post cardiothoraci c surgery with a midline sternotomy. Degenerative changes are not ed in the spine as well as dystrophic hepatic skeletal hyperostosis . No definite evidence of an acute osseous abnormality or definitive suspicious bone lesion. IMPRESSION: Dilated pulmonary trunk and central pulm onary arteries concerning for pulmonary hypertension. Cardiac enlargement, small bilateral ple ural effusions and dependent atelectasis. No definitive findings to suggest thorac ic metastatic disease. Signed: Cayetano Gray MD Report Verified Date/Time:12/29/2018 04:16:24 Reading Location: [address] Reading Room Procedure Note Interface, External Ris In - 12/29/2018 4:18 AM CDT FINAL REPORT EXAMINATION: Noncontrast chest CT. CLINICAL HISTORY: Renal mass. Evaluate f or pulmonary nodule/metastatic disease. COMPARISON EXAM: Abdominal CT 12/23/2018 TECHNIQUE: Following the administration of IV contrast, axial tomographic images were acquired through the thorax. The exam was performed according to our departmental dose optimization program which includes auto mated exposure control, adjustment of the mA and/or kV according to patient's size and/or use of iterative reconstructive technique. FINDINGS: The thoracic aorta is mildly ectatic. Di ffuse atherosclerotic changes are also noted involving the aorta inclu ding a relatively large volume of calcified and noncalcified debra que involving the descending segment. No evidence of an aortic dissec tion or aortic rupture. The pulmonary trunk is dilated measuring 3.5 cm. The central pulmonary arteries are also mildly dilat ed. No evidence of a discrete filling defect-embolus within the centra l pulmonary arteries. Evaluation of the small peripheral pulmo nary arteries is limited by non-PE protocol technique. The heart is mild-moderately enlarged. N o evidence of a pericardial effusion. There are numerous small shott y nonspecific lymph nodes in the mediastinum. The esophagus is decomp ressed. There are relatively symmetric small mirian ateral pleural effusions. Consolidation involving the dependent po rtion of the lung bases is compatible with associated passive atele ctasis. No definite evidence of a discrete pneumonia, pulmonary edema , pleural effusion or pneumothorax. Although there is no definite evidence o f a discrete pulmonary nodule, the evaluation of the lungs is m ildly limited by motion degradation. Trachea and central airways demonstrate senescent changes of aging. No definite evidence of discrete endobro nchial lesion or significant airway endoluminal debris. The patient is status post cardiothoraci c surgery with a midline sternotomy. Degenerative changes are not ed in the spine as well as dystrophic hepatic skeletal hyperostosis . No definite evidence of an acute osseous abnormality or definitive suspicious bone lesion. IMPRESSION: Dilated pulmonary trunk and central pulm onary arteries concerning for pulmonary hypertension. Cardiac enlargement, small bilateral ple ural effusions and dependent atelectasis. No definitive findings to suggest thorac ic metastatic disease. Signed: Cayetano Gray MD Report Verified Date/Time: 12/29/2018 0 4:16:24 Reading Location: [address] Reading Room Performing Organization Address City/State/Zipcode Phone Number [facility] myocardial perfusion SPECT, pharm(Lexiscan) (12/28/2018 11:19 AM CDT) Specimen Narrative Performed At FINAL REPORT [facility] PROCEDURE: MYOCARDIAL PERFUSION SPECT IM AGING (2-Day Stress/Rest) CPT CODE: 04227 INDICATION: Define severity of known CAD CARDIOVASCULAR PROFILE: CAD History: Known CAD, prior PCI, prior ACB Symptoms: None Risk Factors: Diabetes, obesity BMI: 39.7 Medications: Aspirin STRESS PROTOCOL: Pharmacologic stress was achieved with a 10-second intravenous infusion of regadenoson 0.4 mg. The radi opharmaceutical was administered 30 seconds after the start of the regadenoson infusion. IMAGING PROTOCOL: 30.7 mCi of Tc-99m sestamibi was injecte d intravenously at peak stress, and gated SPECT images were obta ined. Then on a separate day, 32.2 mCi of Tc-99m sestamibi was injecte d intravenously at rest, and non-gated SPECT images were obtained. Im age quality is fair. REST FINDINGS: HR: 86/min BP: 137/62 mmHg Prelim. EKG: Sinus rhythm, first-degree AV block. Perfusion: There is a moderate severity perfusion defect of the basal to mid inferior segment(s). LV Volume: Normal. RV Volume: Normal. STRESS FINDINGS: HR: 93/min (59% of MPHR) BP: 180/77 mmHg Prelim. EKG: PACs and PVCs. Symptoms: None (treatment not required). Perfusion: There is a moderate severity perfusion defect of the basal to mid inferior segment(s). Wall Motion: There is moderate hypokines is of the basal to mid inferior LV (LVEF 42%). LV Volume: Not significantly changed fro m rest. IMPRESSION: 1. Abnormal study. 2. Abnormal myocardial perfusion. There is a moderate size, moderate severity, fixed perfusion abnormality in the basal to mid inferior LV. 3. Abnormal LVEF with stress. 4. Normal extracardiac tracer distributi on. 5. There is no prior study for compariso n. Signed: Tanner Marin MD Report Verified Date/Time:12/28/2018 15:32:38 Reading Location: [address] Reading Room Procedure Note Interface, External Ris In - 12/28/2018 3:34 PM CDT FINAL REPORT PROCEDURE: MYOCARDIAL PERFUSION SPECT IM AGING (2-Day Stress/Rest) CPT CODE: 34949 INDICATION: Define severity of known CAD CARDIOVASCULAR PROFILE: CAD History: Known CAD, prior PCI, prior ACB Symptoms: None Risk Factors: Diabetes, obesity BMI: 39.7 Medications: Aspirin STRESS PROTOCOL: Pharmacologic stress was achieved with a 10-second intravenous infusion of regadenoson 0.4 mg. The radi opharmaceutical was administered 30 seconds after the start of the regadenoson infusion. IMAGING PROTOCOL: 30.7 mCi of Tc-99m sestamibi was injecte d intravenously at peak stress, and gated SPECT images were obta ined. Then on a separate day, 32.2 mCi of Tc-99m sestamibi was injecte d intravenously at rest, and non-gated SPECT images were obtained. Im age quality is fair. REST FINDINGS: HR: 86/min BP: 137/62 mmHg Prelim. EKG: Sinus rhythm, first-degree AV block. Perfusion: There is a moderate severity perfusion defect of the basal to mid inferior segment(s). LV Volume: Normal. RV Volume: Normal. STRESS FINDINGS: HR: 93/min (59% of MPHR) BP: 180/77 mmHg Prelim. EKG: PACs and PVCs. Symptoms: None (treatment not required). Perfusion: There is a moderate severity perfusion defect of the basal to mid inferior segment(s). Wall Motion: There is moderate hypokines is of the basal to mid inferior LV (LVEF 42%). LV Volume: Not significantly changed fro m rest. IMPRESSION: 1. Abnormal study. 2. Abnormal myocardial perfusion. There is a moderate size, moderate severity, fixed perfusion abnormality in the basal to mid inferior LV. 3. Abnormal LVEF with stress. 4. Normal extracardiac tracer distributi on. 5. There is no prior study for compariso n. Signed: Tanner Marin MD Report Verified Date/Time: 12/28/2018 1 5:32:38 Reading Location: [address] Reading Room Performing Organization Address City/State/Zipcode Phone Number GE RIS VERONICA's Only(Ankle/Brachial Index) (12/28/2018 10:01 AM CDT) [facility] ECHO HEAR TLAB [facility] Specimen Impressions Performed At Right Impression [facility] 1. The posterior tibial and dorsalis pedis arteries are patent with normal triphasic Doppler waveforms. 2. The PT pressure is >255 mmHg with an VERONICA of non compressible and the DP pressure is >255 mmHg with an VERONICA of non compressible. 3. The great toe pressure is 132 mmHg with a normal TBI of 0.96. 4. The digits have adequate flow by PPG waveforms. Left Impression 1. The posterior tibial and dorsalis pedis arteries are patent with normal triphasic Doppler waveforms. 2. The PT pressure is >255 mmHg with an VERONICA of non compressible and the DP pressure is >255 mmHg with an VERONICA of non compressible. 3. The great toe pressure is 97 mmHg with a normal TBI of 0.71. 4. The digits have adequate flow by PPG waveforms. Conclusions Summary Arterial pressures and Doppler waveforms were performed bilaterally. Adequate Doppler waveforms were obtained. Doppler waveforms were triphasic with normal flow bilaterally. The right and left VERONICA's were non compressible. The toe pressure and TBI's were within normal range bilaterally. The digits had adequate flow by PPG waveforms bilaterally. Signature Velocities are measured in cm/s ; Diameters are measured in cm Narrative Performed At LAB - Lower Extremity Arterial Proced ure [facility] Demographics Patient Name EVELIN MARINDate of Study12/28/2018 [id number] Age 63 Visit Number [id number] Male Accession Number [id number] of Birth1955 ReferringMarcial Menjivar [id number] Physician SonographerRenae KwokeInterpreting Bernardo Plaza MD RVT Physician Procedure Type of Study: Extremities Arteries: Lower Extremity Arterial Procedure, ARTERIAL (VERONICA'S W/DOPPLER) ONLY. Indications for Study:PAD. Patient Status:Routine. Study Location:Vascular Lab. Technical Quality:Adequate visualization . Risk Factors History of Disease + +----+ + !Diagnosis !Date!Comments ! + +----+ + !History/Risk Factors:!!CAD W/CABG, GI BLEED, DM ! + +----+ + Procedure Note Interface, External Ris In - 12/28/2018 12:21 PM CDT PV LAB - Lower Extremity Arterial Procedure Demographics Patient Name EVELIN MARIN Da te of Study 12/28/2018 Ag e 63 Visit Number [id number] Ge nder Male Accession Number [id number] Da te of 1955 Referring Marcial Estrada om Number [id number] Physician Health Program Manager Renae Dominguez In terpreting Bernardo Plaza MD RVT Ph ysician Procedure Type of Study: Extremities Arteries: Lower Extremity A rterial Procedure, ARTERIAL (VERONICA'S W/DOPPLER) ONLY. Indications for Study:PAD. Patient Status:Routine. Study Location:Vascular Lab. Technical Quality:Adequate visualization . Risk Factors History of Disease + +----+---- + !Diagnosis !Date!Comm ents ! + +----+---- + !History/Risk Factors: ! !CAD W/CABG, GI BLEED, DM ! + +----+---- + Impressions Right Impression 1. The posterior tibial and dorsalis ped is arteries are patent with normal triphasic Doppler waveforms. 2. The PT pressure is >255 mmHg with an VERONICA of non compressible and the DP pressure is >255 mmHg with an VERONICA of non compressible. 3. The great toe pressure is 132 mmHg wi th a normal TBI of 0.96. 4. The digits have adequate flow by PPG waveforms. Left Impression 1. The posterior tibial and dorsalis ped is arteries are patent with normal triphasic Doppler waveforms. 2. The PT pressure is >255 mmHg with an VERONICA of non compressible and the DP pressure is >255 mmHg with an VERONICA of non compressible. 3. The great toe pressure is 97 mmHg wit h a normal TBI of 0.71. 4. The digits have adequate flow by PPG waveforms. Conclusions Summary Arterial pressures and Doppler waveform s were performed bilaterally. Adequate Doppler waveforms were obtaine d. Doppler waveforms were triphasic with normal flow bilaterally. The right and left VERONICA's were non compressible. The toe pressure and TBI' s were within normal range bilaterally. The digits had adequate fl ow by PPG waveforms bilaterally. Signature Velocities are measured in cm/s ; Diamet ers are measured in cm Performing Organization Address City/State/Zipcode Phone Number [facility] ECHOCARDIOGRAM REPORT - SCAN (12/27/2018 9:11 PM CDT) Narrative Performed At This result has an attachment that is no t available. Transfuse Leuko-Red RBC (12/27/2018 8:16 PM CDT)Only the most recent of2 resultswithin the time period is included.Treadmill tolerance(Non-Nuclear Treadmill) (12/27/2018 10:37 AM CDT) Specimen Narrative Performed At Protocol Name Lexiscan1 [facility] ([facility]) Time In Exercise Phase 00:01:00 Max. Systolic BP 180 mmHg Max Diastolic BP 77 mmHg Max Heart Rate 93 BPM Max Predicted Heart Rate 156 BPM Reason For Termination Predetermined end point Reason for Test Prior Revascularization Target HR Formula (220 - Age)*100% Arrhythmias atrial premature beats ventricular premature beats Resting ECG 1st Degree AV Block Inferolateral ST Depression Inf-Lat T wave Abnormality(old) ST Changes No Significant Changes Overall Impression Indeterminate due to pharmacological stress Chest Pain none HR Response To Exercise BP Response To Exercise ASA Confirmed by fellow John Lewis ([id number] ) on 12/27/2018 11:55:57 AM Confirmed by MD BLANCO JORGE ([id number]) on 02/03/2019 1:57 :39 PM Procedure Note Interface, External Ris In - 02/03/2019 1:57 PM CDT Protocol Name Lexiscan1 Time In Exercise Phase 00:01:00 Max. Systolic BP 180 mmHg Max Diastolic BP 77 mmHg Max Heart Rate 93 BPM Max Predicted Heart Rate 156 BPM Reason For Termination Predetermined end point Reason for Test Prior Revascularization Target HR Formula (220 - Age)*100% Arrhythmias atrial premature beats ventricular premature beats Resting ECG 1st Degree AV Block Inferolateral ST Depression Inf-Lat T wave Abnormality(old) ST Changes No Significant Changes Overall Impression Indeterminate due to pharmacological stress Chest Pain none HR Response To Exercise BP Response To Exercise ASA Confirmed by fellow John Lewis ([id number] ) on 12/27/2018 11:55:57 AM Confirmed by MD BLANCO JORGE ([id number]) on 02/03/2019 1:57:39 PM Performing Organization Address City/[employer] CenterVirtual View App Phone Number [facility] ([facility]) ECG 12 lead (12/27/2018 10:17 AM CDT)Only the most recent of2 resultswithin the time period is included. Specimen Narrative Performed At Ventricular Rate 85 BPM GE MUSE Atrial Rate 85 BPM P-R Interval 218 ms QRS Duration 122 ms Q-T Interval 406 ms QTC Calculation(Bazett) 483 ms P [place] 37 degrees R [place] 90 degrees T [place] 163 degrees Sinus rhythm with 1st degree A-V block with occasional Premature ventricular complexes Cannot exclude old anterior infarct ST & T wave abnormality, consider infero lateral ischemia Prolonged QT Abnormal ECG 26 DEC 2018 PVCs now seen PACs no longer seen Q waves no longer seen in III Questionable change in the QRS axis Confirmed by MD RADHA, DEB ([id number]) on 12/28/2018 6 :35:43 AM Procedure Note Interface, External Ris In - 12/28/2018 6:35 AM CDT Ventricular Rate 85 BPM Atrial Rate 85 BPM P-R Interval 218 ms QRS Duration 122 ms Q-T Interval 406 ms QTC Calculation(Bazett) 483 ms P [place] 37 degrees R [place] 90 degrees T [place] 163 degrees Sinus rhythm with 1st degree A-V block w ith occasional Premature ventricular complexes Cannot exclude old anterior infarct ST & T wave abnormality, consider infero lateral ischemia Prolonged QT Abnormal ECG 26 DEC 2018 PVCs now seen PACs no longer seen Q waves no longer seen in III Questionable change in the QRS axis Confirmed by MD GARCIA YOCHAI ([id number]) on 12/28/2018 6:35:43 AM Performing Organization Address [facility]/State/Zipcode Phone Number GE MUSE Type and screen, automated (12/27/2018 8:49 AM CDT)Only the most recent of2 resultswithin the time period is included. ABO/RH AUTOMATED (BEAKER) O POSITIVE [facility] Ab Scrn NEGATIVE [facility] Specimen Blood Performing Organization Address City/[facility]le Health Centercode Phone Number [address] [address] Hemoglobin A1c (12/27/2018 4:26 AM CDT)Only the most recent of3 resultswithin the time period is included. Hemoglobin A1C 9.0 (H) 4.3 - 6.1 % [facility] Specimen Blood Performing Organization Address [facility] Centercoak Phone Number [address] [address] ENDEAVOR Lipid panel (12/27/2018 4:26 AM CDT)Only the most recent of2 resultswithin the time period is included. Triglycerides 52 mg/dL [facility] Cholesterol 93 mg/dL [facility] HDL 29 mg/dL [facility] LDL Calculated 54 mg/dL [facility] Specimen Blood Narrative Performed At Triglyceride Reference Range: [facility] Low Risk <150 [id number] High Risk 200-499 Very High Risk>=500 Cholesterol Reference Range: Low Risk <200 [id number] High Risk>240 HDL Cholesterol Reference Range: Low Risk >=60 High Risk <40 LDL Cholesterol Reference Range: Optimal<100 Near [id number] Very High >=190 Performing Organization Address [facility] Health Centercode Phone Number [address] [address] CENTER Hemoglobin and hematocrit (12/26/2018 4:13 PM CDT)Only the most recent of11 resultswithin the time period is included. Hemoglobin 7.3 (L) 13.7 - 17.5 GM/DL [facility] Hematocrit 23.0 (L) 40.1 - 51.0 % [facility] Specimen Blood Performing Organization Address City/State/Zipcode Phone Number [facility] [address] [place] [address] CENTER 2D Echo W/Doppler(CW/PW/Color) (12/26/2018 2:28 PM CDT) Ejection Fraction [facility] Specimen Narrative Performed At Transthoracic Echocardiography Report (T TE) [facility] Demographics Patient NameFORD, RODNEYDate of Study12/26/2018 Male Visit [id number] Unknown Room [id number] Number Date of 4Referring Lisa Cash Age 63 year(s)Health Program Manager Cayetano Day [facility] Radio Broadcaster Laquita Dominguez Interpreting Crista Carpenter MD Procedure Type of Study TTE procedure:2DECHO W DOPPLER(CW/PW/COLOR) (Routine) Indications:Known or suspected heart neeta lure. Clinical History Coronary Artery Disease S/P Coronary Stent S/P CABG 10 years ago HGB 7.6 HCT 24.2 % Contrast Medium: Definity. Amount - 2 ml Height: 70 inches Weight: 126.55 kg (279 lbs) BSA: 2.4 m^2 BMI: 40.03 kg/m^2 HR: 91 bpm BP: 145/64 mmHg Summary The left ventricle is chamber size (by vol index) is mildly enlarged (male - LVED 75-89ml/m2). Septal motion is abnormal, likely related to prior cardiac surgery . The following segment(s) appear hypokinetic: basal inferior, basal- mid inferolateral . The other segments contract normally. LVEF by Bledsoe's method of disk assessment is normal (55-60%) . Grade 2 diastolic dysfunction (moderately increased LA pressure). Mild aortic regurgitation. Mild mitral regurgitation. Unable to estimate peak systolic PA pressure; inadequate TR velocity signal. Previous Study No prior exam available for comparison. Signature Findings Left Ventricle The left ventricle is chamber size (by vol index) is mildly enlarged (male - LVED 75-89ml/m2) . Normal LV wall thickness. Septal motion is abnorma llavern related to prior cardiac surgery . Th e following segment(s) appear hypokineti c: basal in ferior, basal- mid inferolateral . Th e other segments contract normally. LVEF by Si mpson's method of disk assessment is nor mal (5 5-60%) . The LVEF was measured using Sim pson's bi -plane method of disk . LV endocardium i s ad equately visualized with IV ultrasound e nhancing ag ent. Gr pedro 2 diastolic dysfunction (moderately increased LA pressure). Left AtriumLA size is severely enlarged (>48 ml/m2) . Right VentricleRV chamber size is mildly enlarged . Gl obal RV systolic function is normal . Right Atrium RA cavity size is mildly enlarged . Aortic Valve Mild AoV cusp calcification. LCC is not seen. Mi ld aortic regurgitation. No evidence of aortic stenosis. Mitral Valve Mild MV leaflet calcification. Mi ld mitral annular calcification. Mi ld mitral regurgitation. Tricuspid ValveUnable to estimate peak systolic PA pressure; in adequate TR velocity signal. Pulmonic Valve Normal PV structure and function by limited views an d Doppler. AortaAortic root size (SInus of Valsalva diameter) i s beatrice rderline dilated . PericardiumNo significant pericardial effusion is visualized. IVC/SVC/PA/PV/PleuralPulmonary vein flow is consistent with increased LA P . Th e estimated RA pressure by IVC dynamics 5-10mmHg . Chambers/Structures Left Atrium LA Volume: 120.08 mlLA Area: 30.82 cm^2 LA Vol. Index: 50 ml/m^2 Left Ventricle LVIDd: 5.45 cm LV Septum Diastolic: 0.95 cm LV PW Diastolic: 1.02 cm LVEDV Bledsoe's:187.82 ml LVESV Bledsoe's:76.03 ml LVEF Bledseo's: 59.5 %LVEDV I: 78 ml/m^2 LVESVI: 32 ml/m^2 LVOT Diameter: 2.21 cm Right Atrium RA Vol. (Sngl Plane): 6 8.29 ml Right Ventricle RV Diast Dim.: 3.87 cm TAPS E: 1.71 cm Aorta Ao Root S of Bianka.: 3.51 cm Doppler/Quantitative Measurements Mitral Valve MV Peak E-Wave: 1.25 m/sMV Peak A-Wave: 0.46 m/s E/A Ratio: 2. 7 Peak Gradient: 6.23 mmHg Deceleration Time: 123.9 msec MV Jefferson. Peak: Tissue Doppler E' Lateral Velocity: 0.09 m/s E/E': 13.44 Aortic Valve Peak Velocity: 1.71 m/sMean Velocity: 1.2 m/s Peak Gradient: 11.63 mmHgMean Gradient: 6.55 mmHg AV Area (continuity): 2.55 cm^2 AV VTI: 29.19 cm AV DVI: 0.66 LVOT Peak Velocity: 1 m/sPeak Gradient: 3.96 mmHg Mean Velocity: 0.71 m/s Mean Gradient: 2.27 mmHg LVOT Diameter: 2.21 cmLVOT VTI: 19.41 cm LVOT Area: 3.84 cm^2LVOT SV:74.42 ml LVOT CO: 6.77 l/min LVOT CI: 2.82 l/min/m^2 Procedure Note Interface, External Ris In - 12/27/2018 9:25 AM CDT Transthoracic Echocardiography Report (TTE) Demographics Patient Name EVELIN MARIN Date of Study 12/26/2018 Gender Male Visit Number [id number] Race Unknown Room [place] [address] Number Date of 1955 Referri Physician Marcial Cash Age 63 year(s) Sonogra yaima Day RDCS Radio Broadcaster Laquita Angelica Interpr eting Nando Pedersen, Mar mtz MD Procedure Type of Study TTE procedure:2DECHO W DOPPLE R(CW/PW/COLOR) (Routine) Indications:Known or suspected heart neeta lure. Clinical History Coronary Artery Disease S/P Coronary Stent S/P CABG 10 years ago HGB 7.6 HCT 24.2 % Contrast Medium: Definity. Amount - 2 ml Height: 70 inches Weight: 126.55 kg (279 lbs) BSA: 2.4 m^2 BMI: 40.03 kg/m^2 HR: 91 bpm BP: 145/64 mmHg Summary The left ventricle is chamber size (by vol index) is mildly enlarged (male - LVED 75-89ml/m2). Septal motion is ab normal, likely related to prior cardiac surgery . The following segment (s) appear hypokinetic: basal inferior, basal- mid inferolateral . Th e other segments contract normally. LVEF by Bledsoe's method of disk assess ment is normal (55-60%) . Grade 2 diastolic dysfunction (moderate ly increased LA pressure). Mild aortic regurgitation. Mild mitral regurgitation. Unable to estimate peak systolic PA pre ssure; inadequate TR velocity signal. Previous Study No prior exam available for comparison. Signature Findings Left Ventricle The left ventric le is chamber size (by vol index) is mildly enlarg ed (male - LVED 75-89ml/m2). Normal LV wall thicknes s. Septal motion is abnormal, likely related t o prior cardiac surgery . The following se gment(s) appear hypokinetic: basal inferior, basal- mid inferolateral . The other segmen ts contract normally. LVEF by Bledsoe's method of disk assessment is normal (55-60%) . The L VEF was measured using Bledsoe's bi-plane method of disk . LV endocardium is adequately visua lized with IV ultrasound enhancing agent. Grade 2 diastoli c dysfunction (moderately increased LA pressure). Left Atrium LA size is sever shanta enlarged (>48 ml/m2) . Right Ventricle RV chamber size is mildly enlarged . Global RV systol ic function is normal . Right Atrium RA cavity size i s mildly enlarged . Aortic Valve Mild AoV cusp ca lcification. LCC is not seen. Mild aortic regu rgitation. No evidence of a ortic stenosis. Mitral Valve Mild MV leaflet calcification. Mild mitral monik lar calcification. Mild mitral regu rgitation. Tricuspid Valve Unable to estima te peak systolic PA pressure; inadequate TR ve locity signal. Pulmonic Valve Normal PV struct ure and function by limited views and Doppler. Aorta Aortic root size (SInus of Valsalva diameter) is borderline dilat ed . Pericardium No significant p ericardial effusion is visualized. IVC/SVC/PA/PV/Pleural Pulmonary vein f low is consistent with increased LAP . The estimated RA pressure by IVC dynamics 5-10mmHg . Chambers/Structures Left Atrium LA Volume: 120.08 ml LA Area: 30.82 cm^2 LA Vol. Index: 50 ml/m^2 Left Ventricle LVIDd: 5.45 cm LV Septum Diastolic: 0.95 cm LV PW Diastolic: 1.02 cm LVEDV Bledsoe's:187.82 ml LVESV Bledsoe's:76.03 ml LVEF Bledsoe's: 59.5 % LVEDVI: 78 ml/m^2 LVESVI: 32 ml/m^2 LVOT Diameter: 2.21 cm Right Atrium RA Vol. (Sngl Plane): 68.29 ml Right Ventricle RV Diast Dim.: 3.87 cm TAPSE: 1.71 cm Aorta Ao Root S of Bianka.: 3.51 cm Doppler/Quantitative Measurements Mitral Valve MV Peak E-Wave: 1.25 m/s M V Peak A-Wave: 0.46 m/s E /A Ratio: 2.7 P eak Gradient: 6.23 mmHg D eceleration Time: 123.9 msec MV Jefferson. Peak: Tissue Doppler E' Lateral Velocity: 0.09 m/s E /E': 13.44 Aortic Valve Peak Velocity: 1.71 m/s Mean Velocity: 1.2 m/s Peak Gradient: 11.63 mmHg Mean Gradient: 6.55 mmHg AV Area (continuity): 2.55 cm^2 AV VTI: 29.19 cm AV DVI: 0.66 LVOT Peak Velocity: 1 m/s Pea k Gradient: 3.96 mmHg Mean Velocity: 0.71 m/s Mando n Gradient: 2.27 mmHg LVOT Diameter: 2.21 cm LVO T VTI: 19.41 cm LVOT Area: 3.84 cm^2 LVO T SV:74.42 ml LVOT CO: 6.77 l/min LVO T CI: 2.82 l/min/m^2 Performing Organization Address City/State/Zipcode Phone Number [facility] REPORT OF PROCEDURE - ENDOSCOPY URL (12/26/2018 12:36 PM CDT) Narrative Performed At This result has an attachment that is no t available. Tissue Exam (12/26/2018 12:23 PM CDT) Case Report Surgical Pathology Report Case: [id number] [facility] Authorizing Provider:Joshua De Oliveira MDCollected: 12/26/2018 [facility]3 [facility] Ordering Location: [address] Received:12/27/2018 0757 Service Pathologist: Gisell Rodriguez MD Specimen:[place], [place] n - Left/Descending, via hot snare DIAGNOSIS COLON, LEFT/DESCENDING, ENDOSCOPIC POLYPECTOMY: [facility] COUNTYEvaporcoolP[facility] - [facility] ENTER - NO HIGH GRADE DYSPLASIA OR INVASIVE CARCINOMA SEEN Signing Pathologist Direct Phone Line: CPT Code(s) 00786 [facility] ER CLINICAL HISTORY Gastrointestinal hemorrhage, [facility] unspecified gastrointestinal [facility] hemorrhage type SPECIMEN SOURCE Polyp, colon-left descending [facility] via hot snare [facility] GROSS DESCRIPTION The case is received in one part labeled with the patient's name, Evelin Marin, date of 1955, and accession number, [id number], which corresponds to the accompanying requisition page labeled with the same name and accession number. [facility] ER Received in formalin labeled "polyp, colon-left descending" is a 0.4 x 0.3 x 0.3 cm, jefferson-pink, irregular piece of tissue. The specimen is submitted in toto following filtration in cassette A1. RP/ew MICROSCOPIC DESCRIPTION PERFORMED [facility] ER Specimen Tissue - Polyp, Colon - Left/Descending Performing Organization Address [facility] Phone Number [address] [phone] CENTER B-type Natriuretic Factor (BNP) (12/26/2018 7:32 AM CDT)Only the most recent of 2 resultswithin the time period is included. BNP 374 (H) 0 - 100 pg/mL [facility] Specimen Blood Performing Organization Address [facility] Phone Number [facility] [address] [place] [phone] CENTER US renal complete (12/26/2018 6:25 AM CDT) Specimen Narrative Performed At FINAL REPORT Unique Property [facility] Ultrasound of the Kidneys Clinical History:DEANNA Comparison: No prior study for direct co mparison.Correlation is made with CT abdomen and pelvis 12/23/18. Discussion: Sonographic evaluation of the kidneys wa s performed. Right kidney:12.8 x 8.3 x 7.7cm, with cortical thickness of 1.4 cm.Normal cortical echogenicity. 9.3 x 6.3 x 6.1 cm heterogeneously hypoechoic interpolar ma ss with vascular flow.No shadowing calculus. No hydronephrosis. Left kidney: 12.4 x 6.5 x5.3 cm, with cortical thi ckness of 1.8 cm. Normal cortical echogenicity.2.3 cm ill-defined hypoechoic interpolar mass.No shadowing calculu s.No hydronephrosis. Limited doppler evaluation of bilateral main renal arteries and veins demonstrate patency. Bladder:Collapsed around a fuentes bal anita. Impression: 9.3 x 6.3 x 6.1 cm right renal mass. 2.3 cm ill-defined hypoechoic left interpolar mass. These are suspicio us for primary malignancy. Urological consult is recommended. No hydronephrosis. Signed: Raf Mcclellan MD Report Verified Date/Time:12/26/2018 07:07:06 Procedure Note Interface, External Ris In - 12/26/2018 7:09 AM CDT FINAL REPORT Ultrasound of the Kidneys Clinical History: DEANNA Comparison: No prior study for direct co mparison. Correlation is made with CT abdomen and pelvis 12/23/18. Discussion: Sonographic evaluation of the kidneys wa s performed. Right kidney: 12.8 x 8.3 x 7.7 cm, wit h cortical thickness of 1.4 cm. Normal cortical echogenicity. 9.3 x 6.3 x 6.1 cm heterogeneously hypoechoic interpolar ma ss with vascular flow. No shadowing calculus. No hydronephrosis. Left kidney: 12.4 x 6.5 x 5.3 cm, with cortical thickness of 1.8 cm. Normal cortical echogenicity. 2.3 cm il l-defined hypoechoic interpolar mass. No shadowing calculus. No hydronephrosis. Limited doppler evaluation of bilateral main renal arteries and veins demonstrate patency. Bladder: Collapsed around a fuentes ballo n. Impression: 9.3 x 6.3 x 6.1 cm right renal mass. 2. 3 cm ill-defined hypoechoic left interpolar mass. These are suspicio us for primary malignancy. Urological consult is recommended. No hydronephrosis. Signed: Raf Mcclellan MD Report Verified Date/Time: 12/26/2018 0 7:07:06 Performing Organization Address City/State/[facility] Phone Number GE RIS Sodium, random urine (12/25/2018 6:27 PM CDT) Sodium Urine 51 meq/L [facility] Specimen Urine Narrative Performed At Reference Range: No Normals [facility] Performing Organization Address City/State/Zipcode Phone Number [address] [address] [place] Protein, random urine (12/25/2018 6:27 PM CDT) Protein, Urine 20 (H) 0 - 14 mg/dL [facility] Specimen Urine Performing Organization Address [facility] Phone Number [address] [address] [place] Creatinine, random urine (12/25/2018 6:27 PM CDT) Creatinine, Ur 145.7 mg/dL [facility] Specimen Urine Narrative Performed At Reference Range: No Normals [facility] [place] Performing Organization Address [facility] Phone Number [address] [address] [place] Urinalysis w/Microscopic (12/25/2018 6:27 PM CDT) Color, UA Yellow [facility] Clarity, UA Cloudy [facility] Specific Moore, UA 1.028 1.001 - 1.035 [facility] pH, UA 5.0 5.0 - 8.0 [facility] Protein, UA 10 mg/dL (A) Negative [facility] Glucose, UA 150 mg/dL (A) Negative [facility] Ketones, UA Negative Negative [facility] Bilirubin, UA Negative Negative [facility] Blood, UA Negative Negative [facility] Nitrite, UA Negative Negative [facility] Leukocytes, UA Negative Negative [facility] Urobilinogen, UA 0.2 0.2 - 1.0 mg/dL [facility] RBC, UA 0 /HPF [facility] WBC, UA 0 /HPF [facility] Bacteria, UA None Seen [facility] Mucus Rare [facility] Epithelial Casts 1 /LPF [facility] Uric Acid Crystals Many [facility] Specimen Source [facility] Specimen Urine Performing Organization Address City/State/Zipcode Phone Number [facility] [address] [place] [address] CENTER Manual Differential (12/24/2018 3:50 AM CDT) % Neutros 93 % [facility] % Lymphs 1 % [facility] % Monos 4 % [facility] % Baso 1 % [facility] % Bands 1 0 - 10 % [facility] # Neutros 11.63 (H) 1.78 - 5.38 K/ul [facility] # Lymphs 0.13 (L) 1.32 - 3.57 K/ul [facility] # Monos 0.50 0.30 - 0.82 K/uL [facility] # Baso 0.13 (H) 0.01 - 0.08 K/uL [facility] # Bands 0.13 0.00 - 0.80 K/uL [facility] Total Counted 100 [facility] WBC Morphology Normal [facility] Platelet Morphology Normal [facility] Hypochromia 1+ few [facility] Anisocytosis 1+ few [facility] Artifact Present [facility] Platelet Conc Adequate [facility] Specimen Blood Narrative Performed At Received comment: [facility] User comments: Slide comments: Performing Organization Address City/State/Zipcode Phone Number [facility] [address] [place] [address] CENTER IR Embolization Bleed (12/23/2018 10:08 AM CDT) Specimen Narrative Performed At FINAL REPORT [facility] Mesenteric Arteriography Clinical History: GI bleed Comparison: A prior CTA Images presented: 32 Conscious Sedation: Fentanyl 50 mcg intr avenously Cardiopulmonary monitoring was performed by the aimein g radiologist and the radiology nurse.Monitoring was perfo rmed with pulse oximetry, blood pressure measurements and ECG tracings. Physician Patient facer to face intraser vice Time: 30 minutes Modality: Fluoroscopy. Anesthesia: 2% lidocaine without epineph rine Approach: Right common femoral artery Catheter positioned: Superior mesenteric artery Contrast: Isovue 077918 cc Estimated Blood Loss: less than 10 cc Fluoro time (in minutes): 16.4, 32 image s For maximum sterile barrier protection a mask, cap, sterile gloves, sterile drape, sterile gown, and a cutan eous antiseptic was utilized. Technique: After informed consent was obtained, the patient was prepped and draped in a sterile manner.Access wa s obtained via a percutaneous right common femoral artery approach. An 18 gauge needle was placed into the artery and a .035 inch guide wi re was advanced.A 5 [place] sheath was utilized.A [address] catheter was placed selectively into the superior mesenteric artery. Seven DSA runs were performed. Superior Mesenteric Artery: Atherosclerotic changes visualized. An a ctive bleed was visualized at the mid ascending colon arising from a r ight colic artery. The patient tolerated the procedure well and left the department in the same condition.Hemostasi s was achieved by a vascular occlusion device. At the end of the procedure, the femoral sheath was withdrawn.Local hemostasis was achieved utilizing manual compression and the deployment of the Mynx device.A femo ral arteriogram was to evaluate the lumen of the common femoral artery a s well as the origin of the femoral profunda artery. The patient roberto erated the procedure well without complication. Impression: Successful, uncomplicated embolization o f an ascending colon bleed. A branch of the right colic artery was tar geted. Following embolization the patient remained with a systolic pre ssure of 90 mmHg and tachycardia. Two coils were necessary. Signed: Jerri Lynne MD Report Verified Date/Time:12/23/2018 18:54:01 Reading Location: [place] [address] Angio Body Reading Room Procedure Note Interface, External Ris In - 12/23/2018 6:56 PM CDT FINAL REPORT Mesenteric Arteriography Clinical History: GI bleed Comparison: A prior CTA Images presented: 32 Conscious Sedation: Fentanyl 50 mcg intr avenously Cardiopulmonary monitoring was performed by the attendin g radiologist and the radiology nurse. Monitoring was perform ed with pulse oximetry, blood pressure measurements and ECG tracings. Physician Patient facer to face intraser vice Time: 30 minutes Modality: Fluoroscopy. Anesthesia: 2% lidocaine without epineph rine Approach: Right common femoral artery Catheter positioned: Superior mesenteric artery Contrast: Isovue 300 100 cc Estimated Blood Loss: less than 10 cc Fluoro time (in minutes): 16.4, 32 image s For maximum sterile barrier protection a mask, cap, sterile gloves, sterile drape, sterile gown, and a cutan eous antiseptic was utilized. Technique: After informed consent was obtained, the patient was prepped and draped in a sterile manner. Access was obtained via a percutaneous right common femoral artery approach. A n 18 gauge needle was placed into the artery and a .035 inch guide wi re was advanced. A 5 [place] sheath was utilized. A [address] atheter was placed selectively into the superior mesenteric artery. Seven DSA runs were performed. Superior Mesenteric Artery: Atherosclerotic changes visualized. An a ctive bleed was visualized at the mid ascending colon arising from a r ight colic artery. The patient tolerated the procedure well and left the department in the same condition. Hemostasis was achieved by a vascular occlusion device. At the end of the procedure, the femoral sheath was withdrawn. Local hemostasis was achieved utilizing manual compression and the deployment of the Mynx device. A femora l arteriogram was to evaluate the lumen of the common femoral artery a s well as the origin of the femoral profunda artery. The patient roberto erated the procedure well without complication. Impression: Successful, uncomplicated embolization o f an ascending colon bleed. A branch of the right colic artery was tar geted. Following embolization the patient remained with a systolic pre ssure of 90 mmHg and tachycardia. Two coils were necessary. Signed: Jerri Lynne MD Report Verified Date/Time: 12/23/2018 1 8:54:01 Reading Location: [place] [address] Angio Body Reading Room Performing Organization Address City/State/Zipcode Phone Number [facility] CT abdomen/pelvis without & with IV contrast (12/23/2018 7:59 AM CDT) Specimen Narrative Performed At FINAL REPORT [facility] TECHNIQUE: CT of the abdomen and pelvis WITHOUT and WITH intravenous contrast and WITHOUT oral contrast. Dose modulation, iterative reconstruction, and/or weight-based adju stment of the mA/kV was utilized to reduce the radiation dose to as low as reasonably achievable. INDICATION: 63-year-old man with concern for diverticular bleed. COMPARISON: Outside abdomen and pelvis C T from earlier same date. FINDINGS: LOWER THORAX: Small bilateral pleural ef fusions. HEPATOBILIARY: No focal hepatic lesions. Cholelithiasis without gallbladder wall thickening or perichole cystic edema. No biliary ductal dilatation. SPLEEN: No splenomegaly. PANCREAS: No focal masses or ductal dila tation. ADRENALS: No adrenal nodules. KIDNEYS/URETERS: Both kidneys are enhanc ing on the precontrast series from prior contrast administration. Enha ncing masses in both kidneys measure 9 x 8.4 cm on the right and 1.8 x 1.6 cm on the left. The right renal mass contains curvilinear ca lcifications. Neither renal mass extends beyond the renal fascia or appears to invade the renal vasculature or inferior vena cava. 1.2 x 1 cm cyst in the right lower pole. PELVIC ORGANS/BLADDER: Unremarkable. PERITONEUM/RETROPERITONEUM: Nonspecific mild fat stranding in the retroperitoneum bilaterally. No free air or fluid. LYMPH NODES: Scattered borderline promin ent retroperitoneal lymph nodes measure up to 1 cm. VESSELS: Atherosclerotic disease in the abdominal aorta and branch vessels. The aortic branch vessels are p atent. Severe stenosis at the origin of the left internal iliac artery . Occlusion of a short segment of the left deep femoral artery with distal reconstitution. Infrarenal abdominal aortic aneurysm mando sures approximately 3.4 cm in diameter. GI TRACT: No distention or wall thickeni ng. Persistent contrast extravasation within the ascending colon , better seen on previous CT. Scattered colonic diverticula. Normal ap pendix. BONES AND SOFT TISSUES: Degenerative jabier nges of the visualized spine. Diastases recti. IMPRESSION: Persistent active bleeding in the ascend ing colon. Bilateral enhancing renal masses measure 9 cm on the right and 1.8 cm on the left, and are suspicious for prim kirsten renal neoplasm such as renal cell carcinoma. Borderline prominent retroperitoneal lym ph nodes, nonspecific and likely reactive. Severe stenosis at the origin of the lef t internal iliac artery. Occlusion of a short segment of the left deep femoral artery with distal reconstitution. An abdominal aort ic aneurysm measures 3.4 cm in diameter; a follow-up examination is recommended every 3 years. Signed: Josette Conrad MD Report Verified Date/Time:12/23/2018 08:53:50 Reading Location: [address] [facility] [place] [facility] Procedure Note Interface, External Ris In - 12/23/2018 8:56 AM CDT FINAL REPORT TECHNIQUE: CT of the abdomen and pelvis WITHOUT and WITH intravenous contrast and WITHOUT oral contrast. Dose modulation, iterative reconstruction, and/or weight-based adju stment of the mA/kV was utilized to reduce the radiation dose to as low as reasonably achievable. INDICATION: 63-year-old man with concern for diverticular bleed. COMPARISON: Outside abdomen and pelvis C T from earlier same date. FINDINGS: LOWER THORAX: Small bilateral pleural ef fusions. HEPATOBILIARY: No focal hepatic lesions. Cholelithiasis without gallbladder wall thickening or perichole cystic edema. No biliary ductal dilatation. SPLEEN: No splenomegaly. PANCREAS: No focal masses or ductal dila tation. ADRENALS: No adrenal nodules. KIDNEYS/URETERS: Both kidneys are enhanc ing on the precontrast series from prior contrast administration. Enha ncing masses in both kidneys measure 9 x 8.4 cm on the right and 1.8 x 1.6 cm on the left. The right renal mass contains curvilinear ca lcifications. Neither renal mass extends beyond the renal fascia or appears to invade the renal vasculature or inferior vena cava. 1.2 x 1 cm cyst in the right lower pole. PELVIC ORGANS/BLADDER: Unremarkable. PERITONEUM/RETROPERITONEUM: Nonspecific mild fat stranding in the retroperitoneum bilaterally. No free air or fluid. LYMPH NODES: Scattered borderline promin ent retroperitoneal lymph nodes measure up to 1 cm. VESSELS: Atherosclerotic disease in the abdominal aorta and branch vessels. The aortic branch vessels are p atent. Severe stenosis at the origin of the left internal iliac artery . Occlusion of a short segment of the left deep femoral artery with distal reconstitution. Infrarenal abdominal aortic aneurysm mando sures approximately 3.4 cm in diameter. GI TRACT: No distention or wall thickeni ng. Persistent contrast extravasation within the ascending colon , better seen on previous CT. Scattered colonic diverticula. Normal ap pendix. BONES AND SOFT TISSUES: Degenerative jabier nges of the visualized spine. Diastases recti. IMPRESSION: Persistent active bleeding in the ascend ing colon. Bilateral enhancing renal masses measure 9 cm on the right and 1.8 cm on the left, and are suspicious for prim kirsten renal neoplasm such as renal cell carcinoma. Borderline prominent retroperitoneal lym ph nodes, nonspecific and likely reactive. Severe stenosis at the origin of the lef t internal iliac artery. Occlusion of a short segment of the left deep femoral artery with distal reconstitution. An abdominal aort ic aneurysm measures 3.4 cm in diameter; a follow-up examination is recommended every 3 years. Signed: Josette Conrad MD Report Verified Date/Time: 12/23/2018 0 8:53:50 Reading Location: [address] Radiolog y Reading Room Performing Organization Address City/State/Zipcode Phone Number PAMELA SANDI, manual (12/23/2018 5:58 AM CDT) ABO Grouping O [facility] Rh Factor POS [facility] Specimen Blood Performing Organization Address City/State/Zipcode Phone Number [facility] [address] [place] [phone] Prothrombin time/INR (12/23/2018 4:52 AM CDT) Protime 16.5 (H) 11.9 - 14.[address] [facility] INR 1.4 <=5.9 [facility] Specimen Blood Narrative Performed At Effective 11/24/2018: PT Reference Range [facility] Change New: 11.9-14.2Previous: 11.7-14.7 RECOMMENDED COUMADIN/WARFARIN INR THERAPY RANGES STANDARD DOSE: 2.0-3.0Includes: PROPHYLAXIS for venous thrombosis, systemic embolization; TREATMENT for venous thrombosis and/or pulmonary embolus. HIGH RISK: Target INR is 2.5-3.5 for patients wiht mechanical heart valves. Performing Organization Address City/State/Zipcode Phone Number [facility] [address] [place] [address] CENTER after 11/12/2018 Insurance Payer Benefit Plan / Group Subscriber ID Type Phone A ddress MEDICARE MEDICARE A B xxxxxxxxxxx Medicare Advance Directives For more information, please contact:[address] [phone] Code Status Date Activated Date Inactivated Comments Partial Code 12/23/2018 4:26 AM 12/29/2018 2:06 PM This code status was determined by: Patient Drug Protocol After Arrest Occurs? Yes Mechanical Ventilation with Intubation? Yes Bag/Mask? Yes Internal/External Pacemaker? No Transfer to Critical Care? Yes Chest Compressions? No Defibrillation/Cardioversion? No
--- OUTSIDE RECORDS SUMMARY | 2019-11-13 09:46 | XMS REPORT ---
:1955 Author Organization [facility] t Address [address] [place] [address] Care Team Providers Name Role Phone JULIA BAUTISTA Attending Clinician Unavailable JULIA BAUTISTA Admitting Clinician Unavailable Problems This patient has no known problems. Allergies, Adverse Reactions, Alerts This patient has no known allergies or adverse reactions. Medications This patient has no known medications. Procedures This patient has no known procedures. Results Test Description Test Time Test Comments Results Result Comments Source POCT-GLUCOSE METER 2018-12-29 08:50:00 Test Item Value Reference Range Interpretation Comme nts POC-GLUCOSE METER (BEAKER) (test 136 mg/dL 70-[address] [facility] [address] [employer] [facility] code = 1538) [facility] 7703 0 BASIC METABOLIC [id number] 06:03:00 Test Item Value Reference Range Interpretation Comments SODIUM (BEAKER) 137 meq/L 136-145 (test code = 381) POTASSIUM (BEAKER) 3.7 meq/L 3.5-5.1 (test code = 379) CHLORIDE (BEAKER) 105 meq/L 98-107 (test code = 382) CO2 (BEAKER) (test 27 meq/L 22-29 code = 355) BLOOD UREA NITROGEN 12 mg/dL 7-21 (BEAKER) (test code = 354) CREATININE (BEAKER) 0.81 mg/dL 0.57-1.25 (test code = 358) GLUCOSE RANDOM 124 mg/dL 70-105 H (BEAKER) (test code = 652) CALCIUM (BEAKER) 7.6 mg/dL 8.4-10.2 L (test code = 697) EGFR (BEAKER) (test 96 mL/min/1.73 ESTIMA MALIK GFR IS code = 1092) sq m NOT ACCURATE CREATININE CLEARANCE IN PREDICTING GLOMERULAR FILTRATION RATE . ESTIMATED GFR I S NOT APPLICABLE FOR DIALYSIS KEITH TS. [id number] 05:52:00 Test Item Value Reference Range Interpretation Comments MAGNESIUM (BEAKER) (test code = 1.8 mg/dL 1.6-2.6 627) CBC W/PLT COUNT & AUTO [id number] 05:48:00 Test Item Value Reference Range Interpretation Comments WHITE BLOOD CELL COUNT (BEAKER) 6.5 K/ L 3.5-10.5 (test code = 775) RED BLOOD CELL COUNT (BEAKER) 2.63 M/ L 4.63-6.08 L (test code = 761) HEMOGLOBIN (BEAKER) (test code = 7.4 GM/DL 13.7-17.5 L 410) HEMATOCRIT (BEAKER) (test code = 23.8 % 40.1-51.0 L 411) MEAN CORPUSCULAR VOLUME (BEAKER) 90.5 fL 79.0-92.2 (test code = 753) MEAN CORPUSCULAR HEMOGLOBIN 28.1 pg 25.7-32.2 (BEAKER) (test code = 751) MEAN CORPUSCULAR HEMOGLOBIN CONC 31.1 GM/DL 32.3-36.5 L (BEAKER) (test code = 752) RED CELL DISTRIBUTION WIDTH 16.0 % 11.6-14.4 H (BEAKER) (test code = 412) PLATELET COUNT (BEAKER) (test 175 K/CU MM 150-450 code = 756) MEAN PLATELET VOLUME (BEAKER) 10.2 fL 9.4-12.4 (test code = 754) NUCLEATED RED BLOOD CELLS 0 /100 WBC 0-0 (BEAKER) (test code = 413) NEUTROPHILS RELATIVE PERCENT 67 % (BEAKER) (test code = 429) LYMPHOCYTES RELATIVE PERCENT 11 % (BEAKER) (test code = 430) MONOCYTES RELATIVE PERCENT 17 % (BEAKER) (test code = 431) EOSINOPHILS RELATIVE PERCENT 4 % (BEAKER) (test code = 432) BASOPHILS RELATIVE PERCENT 0 % (BEAKER) (test code = 437) NEUTROPHILS ABSOLUTE COUNT 4.35 K/ L 1.78-5.38 (BEAKER) (test code = 670) LYMPHOCYTES ABSOLUTE COUNT 0.72 K/ L 1.32-3.57 L (BEAKER) (test code = 414) MONOCYTES ABSOLUTE COUNT (BEAKER) 1.09 K/ L 0.30-0.82 H (test code = 415) EOSINOPHILS ABSOLUTE COUNT 0.23 K/ L 0.04-0.54 (BEAKER) (test code = 416) BASOPHILS ABSOLUTE COUNT (BEAKER) 0.02 K/ L 0.01-0.08 (test code = 417) IMMATURE GRANULOCYTES-RELATIVE 1 % 0-1 PERCENT (BEAKER) (test code = 2801) CT, CHEST, WITH [id number] 04:16:00FINAL REPORT EXAMINATION: Noncontrast chest CT. CLINICAL HISTORY: Renal mass. Evaluate for pulmonary nodule/metastatic disease. COMPARISON EXAM: Abdominal CT 12/23/2018 TECHNIQUE: Following the administration of IV contrast, axial tomographic images were acquired through the thorax. The exam was performed according to our departmental dose optimization program which includes automated exposure control, adjustment of the mA and/or kV according to patient's size and/or use of iterative reconstructive technique. FINDINGS: The thoracic aorta is mildly ectatic. Diffuse atherosclerotic changes are also noted involving the aorta including a relatively large volume of calcified andnoncalcified plaque involving the descending segment. No evidence of an aortic dissection or aortic rupture. The pulmonary trunk is dilated measuring 3.5 cm. The central pulmonary arteries are also mildly dilated. No evidence of a discrete filling defect- embolus within the central pulmonary arteries. Evaluation of the small peripheral pulmonary arteries is limited by non-PE protocol technique. The heart is mild-moderately enlarged. No evidence of a pericardial effusion. There are numerous small shotty nonspecific lymph nodes in the mediastinum. The esophagus is decompressed. There are relatively symmetric small bilateral pleural effusions. Consolidation involving the dependent portion of the lung bases is compatible with associated passive atelectasis. No definite evidence of a discrete pneumonia, pulmonary edema, pleural effusion or pneumothorax. Although there is no definite evidence of a discrete pulmonary nodule, the evaluation of the lungs is mildly limited by motion degradation. Trachea and central airways demonstrate senescent changes of aging. No definite evidence of discrete endobronchial lesion or significant airway endoluminal debris. The patient is status post cardiothoracic surgery with a midline sternotomy. Degenerative changes are noted in the spine as well as dystrophic hepatic skeletal hyperostosis. No definite evidence of an acute osseous abnormality or definitive suspicious bone lesion. IMPRESSION: Dilated pulmonary trunk and central pulmonary arteries concerning for pulmonary hypertension. Cardiac enlargement, small bilateral pleural effusions and dependent atelectasis. No definitive findings to suggest thoracic metastatic disease. Signed: Cayetano Gray MDReport Verified Date/Time: 12/29/2018 04:16:24 Reading Location: [address] Reading Room POCT-GLUCOSE [id number] 22:47:00 Test Item Value Reference Range Interpretation Comments POC-GLUCOSE METER 187 mg/dL 70-110 H TESTED AT [place] [address] ([facility]) (test code = [facility] 1538) [id number] POCT-GLUCOSE [id number] 19:08:00 Test Item Value Reference Range Interpretation Comments POC-GLUCOSE METER 123 mg/dL 70-110 H TESTED AT [place] [address] ([facility]) (test code = [facility] 1538) [address] MYOCARD IMAGING, MULTI, PHARM, [id number] 15:32:00FINAL REPORT PROCEDURE: MYOCARDIAL PERFUSION SPECT IMAGING (2-Day Stress/Rest)CPT CODE: 85089 INDICATION: Define severity of known CAD CARDIOVASCULAR PROFILE:CAD History: Known CAD, prior PCI, prior ACBSymptoms: NoneRisk Factors: Diabetes, obesityBMI: 39.7Medications: Aspirin STRESS PROTOCOL:Pharmacologic stress was achieved with a 10-second intravenous infusion of regadenoson 0.4 mg. The radiopharmaceutical was administered 30 seconds after the start of the regadenoson infusion. IMAGING PROTOCOL:30.7 mCi of Tc-99m sestamibi was injected intravenously at peak stress, and gated SPECT images were obtained. Then on a separate day, 32.2 mCi of Tc-99m sestamibi was injected intravenously at rest, and non-gated SPECT images were obtained. Image quality is fair. REST FINDINGS:HR: 86/minBP: 137/62 mmHgPrelim. EKG: Sinus rhythm, first-degree AV block.Perfusion: There is a moderate severity perfusion defect of the basal to mid inferior segment(s).LV Volume: Normal.RV Volume: Normal. STRESS FINDINGS:HR: 93/min (59% of MPHR)BP: 180/77 mmHgPrelim. EKG: PACs and PVCs.Symptoms: None (tr eatment not required).Perfusion: There is a moderate severity perfusion defect of the basal to mid inferior segment(s).Wall Motion: There is moderate hypokinesis of the basal to mid inferior LV (LVEF 42%).LV Volume: Not significantly changed from rest. IMPRESSION:1. Abnormal study.2. Abnormal myocardial perfusion. There is a moderate size, moderate severity, fixed perfusion abnormality in the basal to mid inferior LV.3. Abnormal LVEF with stress.4. Normal extracardiac tracer distribution.5. There isno prior study for comparison. Signed: Tanner Marin MDReport Verified Date/Time: 12/28/2018 15:32:38 Reading Location: [address] Reading Room POCT- GLUCOSE [id number] 13:05:00 Test Item Value Reference Range Interpretation Comments POC-GLUCOSE METER 125 mg/dL 70-110 H TESTED AT [place] [address] ([facility]) (test code = [facility] 1538) [id number] POCT-GLUCOSE [id number] 12:33:00 Test Item Value Reference Range Interpretation Comments POC-GLUCOSE METER 111 mg/dL 70-110 H TESTED AT [place] [address] ([facility]) (test code = [facility] 1538) [address] POCT-GLUCOSE [id number] 08:13:00 Test Item Value Reference Range Interpretation Comments POC-GLUCOSE METER 135 mg/dL 70-110 H TESTED AT [place] [address] ([facility]) (test code = [facility] 1538) [address] POCT-GLUCOSE [id number] 07:17:00 Test Item Value Reference Range Interpretation Comments POC-GLUCOSE METER 119 mg/dL 70-110 H TESTED AT [place] [address] ([facility]) (test code = [facility] 1538) [address] CBC W/PLT COUNT & AUTO [id number] 07:15:00 Test Item Value Reference Range Interpretation Comments WHITE BLOOD CELL COUNT ([facility]) 6.7 K/ L 3.5-10.5 (test code = 775) RED BLOOD CELL COUNT ([facility]) 2.62 M/ L 4.63-6.08 L (test code = 761) HEMOGLOBIN (BEAKER) (test code = 7.4 GM/DL 13.7-17.5 L 410) HEMATOCRIT (BEAKER) (test code = 23.5 % 40.1-51.0 L 411) MEAN CORPUSCULAR VOLUME (BEAKER) 89.7 fL 79.0-92.2 (test code = 753) MEAN CORPUSCULAR HEMOGLOBIN 28.2 pg 25.7-32.2 (BEAKER) (test code = 751) MEAN CORPUSCULAR HEMOGLOBIN CONC 31.5 GM/DL 32.3-36.5 L (BEAKER) (test code = 752) RED CELL DISTRIBUTION WIDTH 16.3 % 11.6-14.4 H (BEAKER) (test code = 412) PLATELET COUNT (BEAKER) (test 143 K/CU MM 150-450 L code = 756) MEAN PLATELET VOLUME (BEAKER) 10.0 fL 9.4-12.4 (test code = 754) NUCLEATED RED BLOOD CELLS 0 /100 WBC 0-0 (BEAKER) (test code = 413) NEUTROPHILS RELATIVE PERCENT 71 % (BEAKER) (test code = 429) LYMPHOCYTES RELATIVE PERCENT 10 % (BEAKER) (test code = 430) MONOCYTES RELATIVE PERCENT 16 % (BEAKER) (test code = 431) EOSINOPHILS RELATIVE PERCENT 2 % (BEAKER) (test code = 432) BASOPHILS RELATIVE PERCENT 0 % (BEAKER) (test code = 437) NEUTROPHILS ABSOLUTE COUNT 4.77 K/ L 1.78-5.38 (BEAKER) (test code = 670) LYMPHOCYTES ABSOLUTE COUNT 0.66 K/ L 1.32-3.57 L (BEAKER) (test code = 414) MONOCYTES ABSOLUTE COUNT (BEAKER) 1.09 K/ L 0.30-0.82 H (test code = 415) EOSINOPHILS ABSOLUTE COUNT 0.10 K/ L 0.04-0.54 (BEAKER) (test code = 416) BASOPHILS ABSOLUTE COUNT (BEAKER) 0.02 K/ L 0.01-0.08 (test code = 417) IMMATURE GRANULOCYTES-RELATIVE 1 % 0-1 PERCENT (BEAKER) (test code = 2801) BASIC METABOLIC [id number] 07:12:00 Test Item Value Reference Range Interpretation Comments SODIUM (BEAKER) 137 meq/L 136-145 (test code = 381) POTASSIUM (BEAKER) 3.6 meq/L 3.5-5.1 (test code = 379) CHLORIDE (BEAKER) 105 meq/L 98-107 (test code = 382) CO2 (BEAKER) (test 26 meq/L 22-29 code = 355) BLOOD UREA NITROGEN 13 mg/dL 7-21 (BEAKER) (test code = 354) CREATININE (BEAKER) 0.87 mg/dL 0.57-1.25 (test code = 358) GLUCOSE RANDOM 113 mg/dL 70-105 H (BEAKER) (test code = 652) CALCIUM (BEAKER) 7.8 mg/dL 8.4-10.2 L (test code = 697) EGFR (BEAKER) (test 88 mL/min/1.73 ESTIMA MALIK GFR IS code = 1092) sq m NOT ACCURATE CREATININE CLEARANCE IN PREDICTING GLOMERULAR FILTRATION RATE . ESTIMATED GFR I S NOT APPLICABLE FOR DIALYSIS PATIEN TS. [id number] 07:10:00 Test Item Value Reference Range Interpretation Comments MAGNESIUM (BEAKER) (test code = 1.8 mg/dL 1.6-2.6 627) POCT-GLUCOSE [id number] 21:14:00 Test Item Value Reference Range Interpretation Comments POC-GLUCOSE METER 143 mg/dL 70-110 H TESTED AT [place] [address] ([facility]) (test code = [facility] [place] 1538) [address] TISSUE [id number] 18:13:00Surgical Pathology Report Case: [id number] Authorizing Provider: Joshua Harper MD Collected: 12/26/2018 1223 Ordering Location: [address] Received: 12/27/2018 0757 Service Pathologist: Gisell Rodriguez MD Specimen: Polyp, Colon - Left/Descending, via hot snare COLON, LEFT/DESCENDING, ENDOSCOPIC POLYPECTOMY: - TUBULAR ADENOMA - NO HIGH GRADE DYSPLASIA OR INVASIVE CARCINOMA SEEN Signing Pathologist Direct Phone Line: [phone] signed by Gisell Rodriguez MD on 12/27/2018 at 6:13 [id number] hemorrhage, unspecified gastrointestinal hemorrhag e typePolyp, colon-left descending via hot snareThe case is received in one part labeled with the patient's name, Evelin Marin, date of 1955, and accession number, [id number], which corresponds to the accompanying requisition page labeled with the same name and accession number.Received in formalinlabeled "polyp, colon-left descending" is a 0.4 x 0.3 x 0.3 cm, jefferson-pink, irregular piece of tissue.The specimen is submitted in toto following filtration in cassette A1. RP/ew PERFORMEDPOCT-GLUCOSE [id number] 18:10:00 Test Item Value Reference Range Interpretation Comments POC-GLUCOSE METER 158 mg/dL 70-110 H TESTED AT [place] [address] ([facility]) (test code = [facility] 1538) [address] POCT-GLUCOSE [id number] 13:47:00 Test Item Value Reference Range Interpretation Comments POC-GLUCOSE METER 96 mg/dL 70-110 TESTED AT [place] [address] ([facility]) (test code = [facility] [address] 1538) HEMOGLOBIN [id number] 10:07:00 Test Item Value Reference Range Interpretation Comments HEMOGLOBIN A1C ([facility]) (test code = 9.0 % 4.3-6.1 H 368) POCT-GLUCOSE [id number] 08:44:00 Test Item Value Reference Range Interpretation Comments POC-GLUCOSE METER 93 mg/dL 70-110 TESTED AT [place] [address] ([facility]) (test code = [facility] [address] 1538) BASIC METABOLIC [id number] 06:55:00 Test Item Value Reference Range Interpretation Comments SODIUM (BEAKER) 137 meq/L 136-145 (test code = 381) POTASSIUM (BEAKER) 3.4 meq/L 3.5-5.1 L (test code = 379) CHLORIDE (BEAKER) 105 meq/L 98-107 (test code = 382) CO2 (BEAKER) (test 26 meq/L 22-29 code = 355) BLOOD UREA NITROGEN 19 mg/dL 7-21 (BEAKER) (test code = 354) CREATININE (BEAKER) 1.09 mg/dL 0.57-1.25 (test code = 358) GLUCOSE RANDOM 81 mg/dL 70-105 (BEAKER) (test code = 652) CALCIUM (BEAKER) 7.6 mg/dL 8.4-10.2 L (test code = 697) EGFR (BEAKER) (test 68 mL/min/1.73 ESTIMA MALIK GFR IS code = 1092) sq m NOT ACCURATE CREATININE CLEARANCE IN PREDICTING GLOMERULAR FILTRATION RATE . ESTIMATED GFR I S NOT APPLICABLE FOR DIALYSIS PATIEN TS. [id number] 06:54:00 Test Item Value Reference Range Interpretation Comments MAGNESIUM (BEAKER) (test code = 1.6 mg/dL 1.6-2.6 627) LIPID [id number] 06:54:00 Test Item Value Reference Range Interpretation Comments TRIGLYCERIDES (BEAKER) (test code = 52 mg/dL 540) CHOLESTEROL (BEAKER) (test code = 93 mg/dL 631) HDL CHOLESTEROL (BEAKER) (test code 29 mg/dL = 976) LDL CHOLESTEROL CALCULATED (BEAKER) 54 mg/dL (test code = 633) Triglyceride Reference Range: Low Risk <150 Borderline 150-199 High Risk 200-499 Very High Risk >=500Cholesterol Reference Range: Low Risk <200 Borderline 200-239 High Risk >240HDL Cholesterol Reference Range: Low Risk >=60 High Risk <40LDL Cholesterol Reference Range: Optimal <100 Near Optimal 100-129 Borderline 130-159 High 160-189 Very High >=190CBC W/PLT COUNT & AUTO [id number] 05:06:00 Test Item Value Reference Range Interpretation Comments WHITE BLOOD CELL COUNT (BEAKER) 8.2 K/ L 3.5-10.5 (test code = 775) RED BLOOD CELL COUNT (BEAKER) 2.26 M/ L 4.63-6.08 L (test code = 761) HEMOGLOBIN (BEAKER) (test code = 6.5 GM/DL 13.7-17.5 L 410) HEMATOCRIT (BEAKER) (test code = 20.7 % 40.1-51.0 L 411) MEAN CORPUSCULAR VOLUME (BEAKER) 91.6 fL 79.0-92.2 (test code = 753) MEAN CORPUSCULAR HEMOGLOBIN 28.8 pg 25.7-32.2 (BEAKER) (test code = 751) MEAN CORPUSCULAR HEMOGLOBIN CONC 31.4 GM/DL 32.3-36.5 L (BEAKER) (test code = 752) RED CELL DISTRIBUTION WIDTH 15.9 % 11.6-14.4 H (BEAKER) (test code = 412) PLATELET COUNT (BEAKER) (test 135 K/CU MM 150-450 L code = 756) MEAN PLATELET VOLUME (BEAKER) 10.5 fL 9.4-12.4 (test code = 754) NUCLEATED RED BLOOD CELLS 0 /100 WBC 0-0 (BEAKER) (test code = 413) NEUTROPHILS RELATIVE PERCENT 75 % (BEAKER) (test code = 429) LYMPHOCYTES RELATIVE PERCENT 9 % (BEAKER) (test code = 430) MONOCYTES RELATIVE PERCENT 14 % (BEAKER) (test code = 431) EOSINOPHILS RELATIVE PERCENT 1 % (BEAKER) (test code = 432) BASOPHILS RELATIVE PERCENT 0 % (BEAKER) (test code = 437) NEUTROPHILS ABSOLUTE COUNT 6.20 K/ L 1.78-5.38 H (BEAKER) (test code = 670) LYMPHOCYTES ABSOLUTE COUNT 0.77 K/ L 1.32-3.57 L (BEAKER) (test code = 414) MONOCYTES ABSOLUTE COUNT (BEAKER) 1.15 K/ L 0.30-0.82 H (test code = 415) EOSINOPHILS ABSOLUTE COUNT 0.04 K/ L 0.04-0.54 (BEAKER) (test code = 416) BASOPHILS ABSOLUTE COUNT (BEAKER) 0.02 K/ L 0.01-0.08 (test code = 417) IMMATURE GRANULOCYTES-RELATIVE 1 % 0-1 PERCENT (BEAKER) (test code = 2801) POCT-GLUCOSE [id number] 22:01:00 Test Item Value Reference Range Interpretation Comments POC-GLUCOSE METER 96 mg/dL 70-110 TESTED AT [place] [address] ([facility]) (test code = [facility] [address] 1538) POCT-GLUCOSE [id number] 17:38:00 Test Item Value Reference Range Interpretation Comments POC-GLUCOSE METER 167 mg/dL 70-110 H TESTED AT [place] [address] ([facility]) (test code = [facility] 1538) [address] HEMOGLOBIN AND [id number] 16:24:00 Test Item Value Reference Range Interpretation Comments HEMOGLOBIN (BEAKER) (test code = 7.3 GM/DL 13.7-17.5 L 410) HEMATOCRIT (BEAKER) (test code = 23.0 % 40.1-51.0 L 411) POCT-GLUCOSE [id number] 14:40:00 Test Item Value Reference Range Interpretation Comments POC-GLUCOSE METER 149 mg/dL 70-[address] [facility] 6720 (BEAKER) (test code = [facility] 1538) [address] [id number] 09:08:00 Test Item Value Reference Range Interpretation Comments MAGNESIUM (BEAKER) (test code = 1.8 mg/dL 1.6-2.6 627) BASIC METABOLIC [id number] 09:08:00 Test Item Value Reference Range Interpretation Comments SODIUM (BEAKER) 137 meq/L 136-145 (test code = 381) POTASSIUM (BEAKER) 3.5 meq/L 3.5-5.1 (test code = 379) CHLORIDE (BEAKER) 102 meq/L 98-107 (test code = 382) CO2 (BEAKER) (test 28 meq/L 22-29 code = 355) BLOOD UREA NITROGEN 23 mg/dL 7-21 H (BEAKER) (test code = 354) CREATININE (BEAKER) 1.67 mg/dL 0.57-1.25 H (test code = 358) GLUCOSE RANDOM 124 mg/dL 70-105 H (BEAKER) (test code = 652) CALCIUM (BEAKER) 8.0 mg/dL 8.4-10.2 L (test code = 697) EGFR (BEAKER) (test 42 mL/min/1.73 ESTIMA MALIK GFR IS code = 1092) sq m NOT ACCURATE CREATININE CLEARANCE IN PREDICTING GLOMERULAR FILTRATION RATE . ESTIMATED GFR I S NOT APPLICABLE FOR DIALYSIS PATIEN TS. Specimen slightly ictericCBC W/PLT COUNT & AUTO [id number] 08:26:00 Test Item Value Reference Range Interpretation Comments WHITE BLOOD CELL COUNT (BEAKER) 12.4 K/ L 3.5-10.5 H (test code = 775) RED BLOOD CELL COUNT (BEAKER) 2.66 M/ L 4.63-6.08 L (test code = 761) HEMOGLOBIN (BEAKER) (test code = 7.6 GM/DL 13.7-17.5 L 410) HEMATOCRIT (BEAKER) (test code = 24.2 % 40.1-51.0 L 411) MEAN CORPUSCULAR VOLUME (BEAKER) 91.0 fL 79.0-92.2 (test code = 753) MEAN CORPUSCULAR HEMOGLOBIN 28.6 pg 25.7-32.2 (BEAKER) (test code = 751) MEAN CORPUSCULAR HEMOGLOBIN CONC 31.4 GM/DL 32.3-36.5 L (BEAKER) (test code = 752) RED CELL DISTRIBUTION WIDTH 16.9 % 11.6-14.4 H (BEAKER) (test code = 412) PLATELET COUNT (BEAKER) (test 170 K/CU MM 150-450 code = 756) MEAN PLATELET VOLUME (BEAKER) 10.7 fL 9.4-12.4 (test code = 754) NUCLEATED RED BLOOD CELLS 0 /100 WBC 0-0 (BEAKER) (test code = 413) NEUTROPHILS RELATIVE PERCENT 82 % (BEAKER) (test code = 429) LYMPHOCYTES RELATIVE PERCENT 6 % (BEAKER) (test code = 430) MONOCYTES RELATIVE PERCENT 11 % (BEAKER) (test code = 431) EOSINOPHILS RELATIVE PERCENT 0 % (BEAKER) (test code = 432) BASOPHILS RELATIVE PERCENT 0 % (BEAKER) (test code = 437) NEUTROPHILS ABSOLUTE COUNT 10.23 K/ L 1.78-5.38 H (BEAKER) (test code = 670) LYMPHOCYTES ABSOLUTE COUNT 0.72 K/ L 1.32-3.57 L (BEAKER) (test code = 414) MONOCYTES ABSOLUTE COUNT (BEAKER) 1.38 K/ L 0.30-0.82 H (test code = 415) EOSINOPHILS ABSOLUTE COUNT 0.01 K/ L 0.04-0.54 L (BEAKER) (test code = 416) BASOPHILS ABSOLUTE COUNT (BEAKER) 0.01 K/ L 0.01-0.08 (test code = 417) IMMATURE GRANULOCYTES-RELATIVE 1 % 0-1 PERCENT (BEAKER) (test code = 2801) HEMOGLOBIN AND [id number] 08:18:00 Test Item Value Reference Range Interpretation Comments HEMOGLOBIN (BEAKER) (test code = 7.6 GM/DL 13.7-17.5 L 410) HEMATOCRIT (BEAKER) (test code = 24.2 % 40.1-51.0 L 411) POCT-GLUCOSE [id number] 08:15:00 Test Item Value Reference Range Interpretation Comments POC-GLUCOSE METER 141 mg/dL 70-[address] [facility] 6720 (RUSSELL) (test code = [place] 1539) [address] B-TYPE NATRIURETIC FACTOR (BNP)2018-12-26 08:09:00 Test Item Value Reference Range Interpretation Comments B-TYPE NATRIURETIC PEPTIDE (RUSSELL) 374 pg/mL 0-100 H (test code = 700) U/S, RENAL, [id number] 07:07:00Reason for exam:->akiFINAL REPORT Ultrasound of the Kidneys Clinical History: DEANNA Comparison: No prior study for direct comparison. Correlation is made with CT abdomen and pelvis 12/23/18. Discussion: Sonographic evaluation of the kidneys was performed. Right kidney: 12.8 x 8.3 x 7.7 cm, with cortical thickness of 1.4 cm. Normal cortical echogenicity. 9.3 x 6.3 x 6.1 cm heterogeneously hypoechoic interpolar mass with vascular flow. No shadowing calculus. No hydronephrosis. Left kidney: 12.4 x 6.5 x 5.3 cm, with cortical thickness of 1.8 cm. Normal cortical echogenicity. 2.3 cm ill-defined hypoechoic interpolar mass. No shadowing calculus. No hydronephrosis. Limited doppler evaluation of bilateral main renal arteries and veins demonstrate patency. Bladder: Collapsed around a fuentes ballon. Impression: 9.3 x 6.3 x 6.1 cm right renal mass. 2.3 cm ill-defined hypoechoic left interpolar mass. These are suspicious for primary malignancy. Urological consult is recommended. No hydronephrosis. Signed: [facility] Verified Date/Time: 12/26/2018 07:07:06 GLOBIN AND [id number] 01:20:00 Test Item Value Reference Range Interpretation Comments HEMOGLOBIN (RUSSELL) (test code = 7.3 GM/DL 13.7-17.5 L 410) HEMATOCRIT (RUSSELL) (test code = 23.0 % 40.1-51.0 L 411) URINALYSIS W/ [id number] 00:37:00 Test Item Value Reference Range Interpretation Comments COLOR (BEAKER) (test code = 470) Yellow CLARITY (BEAKER) (test code = 469) Cloudy SPECIFIC GRAVITY UA (BEAKER) (test 1.028 1.001-1.035 code = 468) PH UA (BEAKER) (test code = 467) 5.0 5.0-8.0 PROTEIN UA (BEAKER) (test code = 10 mg/dL Negative A 464) GLUCOSE UA (BEAKER) (test code = 150 mg/dL Negative A 365) KETONES UA (BEAKER) (test code = Negative Negative 371) BILIRUBIN UA (BEAKER) (test code = Negative Negative 462) BLOOD UA (BEAKER) (test code = 461) Negative Negative NITRITE UA (BEAKER) (test code = Negative Negative 465) LEUKOCYTE ESTERASE UA (BEAKER) Negative Negative (test code = 466) UROBILINOGEN UA (BEAKER) (test code 0.2 mg/dL 0.2-1.0 = 463) RBC UA (BEAKER) (test code = 519) 0 /HPF WBC UA (BEAKER) (test code = 520) 0 /HPF BACTERIA (BEAKER) (test code = 517) None Seen MUCUS (BEAKER) (test code = 1574) Rare EPITHELIAL CASTS (BEAKER) (test 1 /LPF code = 1580) URIC ACID CRYSTALS (BEAKER) (test Many code = 1583) SOURCE(BEAKER) (test code = 2795) POCT-GLUCOSE [id number] 21:57:00 Test Item Value Reference Range Interpretation Comments POC-GLUCOSE METER 114 mg/dL 70-[address] [facility] 6720 (BEAKER) (test code = [place] 1538) [id number] CREATININE, RANDOM [id number] 19:04:00 Test Item Value Reference Range Interpretation Comments CREATININE URINE (BEAKER) (test 145.7 mg/dL code = 375) Reference Range: No NormalsPROTEIN, RANDOM [id number] 19:04:00 Test Item Value Reference Range Interpretation Comments PROTEIN, URINE (BEAKER) (test code = 20 mg/dL 0-14 H 1569) SODIUM, RANDOM [id number] 19:04:00 Test Item Value Reference Range Interpretation Comments SODIUM URINE (BEAKER) (test code = 51 meq/L 243) Reference Range: No NormalsPOCT-GLUCOSE [id number] 17:27:00 Test Item Value Reference Range Interpretation Comments POC-GLUCOSE METER 121 mg/dL 70-110 H TESTED AT [place] [address] ([facility]) (test code = [facility] Nadeem [facility] 1538) [id number] HEMOGLOBIN AND [id number] 14:57:00 Test Item Value Reference Range Interpretation Comments HEMOGLOBIN (BEAKER) (test code = 7.5 GM/DL 13.7-17.5 L 410) HEMATOCRIT (BEAKER) (test code = 23.5 % 40.1-51.0 L 411) POCT-GLUCOSE [id number] 12:09:00 Test Item Value Reference Range Interpretation Comments POC-GLUCOSE METER 162 mg/dL 70-110 H TESTED AT [place] [address] ([facility]) (test code = [facility] 1538) [id number] POCT-GLUCOSE [id number] 08:20:00 Test Item Value Reference Range Interpretation Comments POC-GLUCOSE METER 204 mg/dL 70-110 H TESTED AT [place] [address] ([facility]) (test code = [facility] 1538) [id number] HEMOGLOBIN AND [id number] 06:58:00 Test Item Value Reference Range Interpretation Comments HEMOGLOBIN (BEAKER) (test code = 7.2 GM/DL 13.7-17.5 L 410) HEMATOCRIT (BEAKER) (test code = 22.6 % 40.1-51.0 L 411) BASIC METABOLIC [id number] 04:16:00 Test Item Value Reference Range Interpretation Comments SODIUM (BEAKER) 134 meq/L 136-145 L (test code = 381) POTASSIUM (BEAKER) 4.1 meq/L 3.5-5.1 (test code = 379) CHLORIDE (BEAKER) 102 meq/L 98-107 (test code = 382) CO2 (BEAKER) (test 23 meq/L 22-29 code = 355) BLOOD UREA NITROGEN 25 mg/dL 7-21 H (BEAKER) (test code = 354) CREATININE (BEAKER) 1.98 mg/dL 0.57-1.25 H (test code = 358) GLUCOSE RANDOM 182 mg/dL 70-105 H (BEAKER) (test code = 652) CALCIUM (BEAKER) 7.8 mg/dL 8.4-10.2 L (test code = 697) EGFR (BEAKER) (test 34 mL/min/1.73 ESTIMA MALIK GFR IS code = 1092) sq m NOT ACCURATE CREATININE CLEARANCE IN PREDICTING GLOMERULAR FILTRATION RATE . ESTIMATED GFR I S NOT APPLICABLE FOR DIALYSIS PATIEN TS. B-TYPE NATRIURETIC FACTOR (BNP)2018-12-25 03:54:00 Test Item Value Reference Range Interpretation Comments B-TYPE NATRIURETIC PEPTIDE (BEAKER) 171 pg/mL 0-100 H (test code = 700) [id number] 03:47:00 Test Item Value Reference Range Interpretation Comments MAGNESIUM (BEAKER) (test code = 2.1 mg/dL 1.6-2.6 627) CBC W/PLT COUNT & AUTO [id number] 03:40:00 Test Item Value Reference Range Interpretation Comments WHITE BLOOD CELL COUNT (BEAKER) 13.3 K/ L 3.5-10.5 H (test code = 775) RED BLOOD CELL COUNT (BEAKER) 2.59 M/ L 4.63-6.08 L (test code = 761) HEMOGLOBIN (BEAKER) (test code = 7.5 GM/DL 13.7-17.5 L 410) HEMATOCRIT (BEAKER) (test code = 23.0 % 40.1-51.0 L 411) MEAN CORPUSCULAR VOLUME (BEAKER) 88.8 fL 79.0-92.2 (test code = 753) MEAN CORPUSCULAR HEMOGLOBIN 29.0 pg 25.7-32.2 (BEAKER) (test code = 751) MEAN CORPUSCULAR HEMOGLOBIN CONC 32.6 GM/DL 32.3-36.5 (BEAKER) (test code = 752) RED CELL DISTRIBUTION WIDTH 15.9 % 11.6-14.4 H (BEAKER) (test code = 412) PLATELET COUNT (BEAKER) (test 166 K/CU MM 150-450 code = 756) MEAN PLATELET VOLUME (BEAKER) 10.6 fL 9.4-12.4 (test code = 754) NUCLEATED RED BLOOD CELLS 0 /100 WBC 0-0 (BEAKER) (test code = 413) NEUTROPHILS RELATIVE PERCENT 78 % (BEAKER) (test code = 429) LYMPHOCYTES RELATIVE PERCENT 10 % (BEAKER) (test code = 430) MONOCYTES RELATIVE PERCENT 12 % (BEAKER) (test code = 431) EOSINOPHILS RELATIVE PERCENT 0 % (BEAKER) (test code = 432) BASOPHILS RELATIVE PERCENT 0 % (BEAKER) (test code = 437) NEUTROPHILS ABSOLUTE COUNT 10.34 K/ L 1.78-5.38 H (BEAKER) (test code = 670) LYMPHOCYTES ABSOLUTE COUNT 1.27 K/ L 1.32-3.57 L (BEAKER) (test code = 414) MONOCYTES ABSOLUTE COUNT (BEAKER) 1.57 K/ L 0.30-0.82 H (test code = 415) EOSINOPHILS ABSOLUTE COUNT 0.01 K/ L 0.04-0.54 L (BEAKER) (test code = 416) BASOPHILS ABSOLUTE COUNT (BEAKER) 0.03 K/ L 0.01-0.08 (test code = 417) IMMATURE GRANULOCYTES-RELATIVE 1 % 0-1 PERCENT (BEAKER) (test code = 2801) HEMOGLOBIN AND [id number] 03:12:00 Test Item Value Reference Range Interpretation Comments HEMOGLOBIN (BEAKER) (test code = 7.5 GM/DL 13.7-17.5 L 410) HEMATOCRIT (BEAKER) (test code = 23.0 % 40.1-51.0 L 411) POCT-GLUCOSE [id number] 21:07:00 Test Item Value Reference Range Interpretation Comments POC-GLUCOSE METER 269 mg/dL 70-110 H TESTED AT [place] [address] ([facility]) (test code = [facility] 1538) [id number] HEMOGLOBIN AND [id number] 18:32:00 Test Item Value Reference Range Interpretation Comments HEMOGLOBIN (BEAKER) (test code = 8.5 GM/DL 13.7-17.5 L 410) HEMATOCRIT (BEAKER) (test code = 25.8 % 40.1-51.0 L 411) POCT-GLUCOSE [id number] 17:19:00 Test Item Value Reference Range Interpretation Comments POC-GLUCOSE METER 246 mg/dL 70-110 H TESTED AT [place] [address] (BEAKER) (test code = [facility] 1538) [address] HEMOGLOBIN [id number] 12:35:00 Test Item Value Reference Range Interpretation Comments HEMOGLOBIN A1C (BEAKER) (test code = 9.8 % 4.3-6.1 H 368) POCT-GLUCOSE [id number] 11:33:00 Test Item Value Reference Range Interpretation Comments POC-GLUCOSE METER 282 mg/dL 70-[address] [facility] 6720 (BEAKER) (test code = [place] 1538) [address] CBC W/PLT COUNT & AUTO [id number] 08:56:00 Test Item Value Reference Range Interpretation Comments WHITE BLOOD CELL COUNT (BEAKER) 12.5 K/ L 3.5-10.5 H (test code = 775) RED BLOOD CELL COUNT (BEAKER) 3.10 M/ L 4.63-6.08 L (test code = 761) HEMOGLOBIN (BEAKER) (test code = 8.8 GM/DL 13.7-17.5 L 410) HEMATOCRIT (BEAKER) (test code = 27.6 % 40.1-51.0 L 411) MEAN CORPUSCULAR VOLUME (BEAKER) 89.0 fL 79.0-92.2 (test code = 753) MEAN CORPUSCULAR HEMOGLOBIN 28.4 pg 25.7-32.2 (BEAKER) (test code = 751) MEAN CORPUSCULAR HEMOGLOBIN CONC 31.9 GM/DL 32.3-36.5 L (BEAKER) (test code = 752) RED CELL DISTRIBUTION WIDTH 15.8 % 11.6-14.4 H (BEAKER) (test code = 412) PLATELET COUNT (BEAKER) (test 162 K/CU MM 150-450 code = 756) MEAN PLATELET VOLUME (BEAKER) 10.9 fL 9.4-12.4 (test code = 754) NUCLEATED RED BLOOD CELLS 0 /100 WBC 0-0 (BEAKER) (test code = 413) (CELLAVISION MANUAL DIFF)2018-12-24 08:56:00 Test Item Value Reference Range Interpretation Comments NEUTROPHILS - REL 93 % (CELLAVISION)(BEAKER) (test code = 2816) LYMPHOCYTES - REL 1 % (CELLAVISION)(BEAKER) (test code = 2817) MONOCYTES - REL 4 % (CELLAVISION)(BEAKER) (test code = 2818) BASOPHILS - REL 1 % (CELLAVISION)(BEAKER) (test code = 2820) BANDS - REL (CELLAVISION)(BEAKER) 1 % 0-10 (test code = 2826) NEUTROPHILS - ABS 11.63 K/ul 1.78-5.38 H (CELLAVISION)(BEAKER) (test code = 2830) LYMPHOCYTES - ABS 0.13 K/ul 1.32-3.57 L (CELLAVISION)(BEAKER) (test code = 2831) MONOCYTES - ABS 0.50 K/uL 0.30-0.82 (CELLAVISION)(BEAKER) (test code = 2832) BASOPHILS - ABS 0.13 K/uL 0.01-0.08 H (CELLAVISION)(BEAKER) (test code = 2835) BANDS - ABS (CELLAVISION)(BEAKER) 0.13 K/uL 0.00-0.80 (test code = 2840) TOTAL COUNTED (BEAKER) (test code 100 = 1351) WBC MORPHOLOGY (BEAKER) (test code Normal = 487) PLT MORPHOLOGY (BEAKER) (test code Normal = 486) HYPOCHROMIA (BEAKER) (test code = 1+ few 963) ANISOCYTOSIS (BEAKER) (test code = 1+ few 961) ARTIFACT (CELLAVISION)(BEAKER) Present (test code = 3432) PLATELET CONCENTRATION Adequate (CELLAVISION)(BEAKER) (test code = 3438) Received comment: User comments: Slide comments:POCT-GLUCOSE [id number] 08:09:00 Test Item Value Reference Range Interpretation Comments POC-GLUCOSE METER 277 mg/dL 70-[address] [facility] 6720 (BEAKER) (test code = [place] 1538) [address] BASIC METABOLIC [id number] 05:22:00 Test Item Value Reference Range Interpretation Comments SODIUM (BEAKER) 134 meq/L 136-145 L (test code = 381) POTASSIUM (BEAKER) 4.6 meq/L 3.5-5.1 Specimen slightly (test code = 379) hemolyzed CHLORIDE (BEAKER) 101 meq/L 98-107 (test code = 382) CO2 (BEAKER) (test 25 meq/L 22-29 code = 355) BLOOD UREA NITROGEN 22 mg/dL 7-21 H (BEAKER) (test code = 354) CREATININE (BEAKER) 1.80 mg/dL 0.57-1.25 H Specimen slightly (test code = 358) hemolyzed GLUCOSE RANDOM 245 mg/dL 70-105 H (BEAKER) (test code = 652) CALCIUM (BEAKER) 7.8 mg/dL 8.4-10.2 L (test code = 697) EGFR (BEAKER) (test 38 mL/min/1.73 ESTIMA MALIK GFR IS code = 1092) sq m NOT ACCURATE CREATININE CLEARANCE IN PREDICTING GLOMERULAR FILTRATION RATE . ESTIMATED GFR I S NOT APPLICABLE FOR DIALYSIS PATIEN TS. [id number] 04:55:00 Test Item Value Reference Range Interpretation Comments MAGNESIUM (BEAKER) 2.3 mg/dL 1.6-2.6 Specimen slightly (test code = 627) hemolyzed [id number] 00:33:00 Test Item Value Reference Range Interpretation Comments MAGNESIUM (BEAKER) 2.7 mg/dL 1.6-2.6 H Specimen slightly (test code = 627) hemolyzed HEMOGLOBIN AND [id number] 00:22:00 Test Item Value Reference Range Interpretation Comments HEMOGLOBIN (BEAKER) (test code = 9.2 GM/DL 13.7-17.5 L 410) HEMATOCRIT (BEAKER) (test code = 28.8 % 40.1-51.0 L 411) POCT-GLUCOSE [id number] 22:21:00 Test Item Value Reference Range Interpretation Comments POC-GLUCOSE METER 360 mg/dL 70-[address] [facility] 6720 (BEAKER) (test code = [place] [facility]8) [address] ANG, ARTERIAL EMBOLIZATION FOR [id number] 18:54:00Reason for exam:- >possible diverticular bleedFINAL REPORT Mesenteric Arteriography Clinical History: GI bleed Comparison:A prior CTAImages presented: 32Conscious Sedation: Fentanyl 50 mcg intravenously Cardiopulmonary monitoring was performed by the attending radiologist and the radiology nurse. Monitoring was performedwith pulse oximetry, blood pressure measurements and ECG tracings.Physician Patient facer to face intraservice Time: 30 minutesModality: Fluoroscopy.Anesthesia: 2% lidocaine without epinephrineApproach: Right common femoral arteryCatheter positioned: Superior mesenteric arteryContrast: Isovue 300 100ccEstimated Blood Loss: less than 10 ccFluoro time (in minutes): 16.4, 32 imagesFor maximum sterile barrier protection a mask, cap, sterile gloves, sterile drape, sterile gown, and a cutaneous antiseptic was utilized. Technique:After informed consent was obtained, the patient was prepped and draped elio sterile manner. Access was obtained via a percutaneous right common femoral artery approach. An 18 gauge needle was placed into the artery and a .035 inch guide wire was advanced. A 5 [place] sheath was utilized. A [address] [place] catheter was placed selectively into the superior mesenteric artery. Seven DSA runs were performed. Superior Mesenteric Artery: Atherosclerotic changes visualized. Anactive bleed was visualized at the mid ascending colon arising from a right colic artery. The patient tolerated the procedure well and left the department in the same condition. Hemostasis was achieved by a vascular occlusion device. At the end of the procedure, the femoral sheath was withdrawn. Local hemostasis was achieved utilizing manual compression and the deployment of the Mynx device. A femoral arteriogram was to evaluate the lumen of the common femoral artery as well as the origin of the femoral profunda artery. The patient tolerated the procedure well without complication. I mpression:Successful, uncomplicated embolization of an ascending colon bleed. A branch of the right colic artery was targeted. Following embolization the patient remained with a systolic pressure of 90mmHg and tachycardia. Two coils were necessary. Signed: Jerri Lynneeport Verified Date/Time: 12/23/2018 18:54:01 Reading Location: [place] [address] Angio Body Reading Room HEMOGLOBIN AND [id number] 18:47:00 Test Item Value Reference Range Interpretation Comments HEMOGLOBIN (BEAKER) (test code = 10.1 GM/DL 13.7-17.5 L 410) HEMATOCRIT (BEAKER) (test code = 32.2 % 40.1-51.0 L 411) HEMOGLOBIN [id number] 14:36:00 Test Item Value Reference Range Interpretation Comments HEMOGLOBIN A1C (BEAKER) (test code = 10.2 % 4.3-6.1 H 368) [id number] 12:58:00 Test Item Value Reference Range Interpretation Comments MAGNESIUM (BEAKER) (test code = 0.9 mg/dL 1.6-2.6 LL 627) LIPID [id number] 12:47:00 Test Item Value Reference Range Interpretation Comments TRIGLYCERIDES (BEAKER) (test code = 67 mg/dL 540) CHOLESTEROL (BEAKER) (test code = 92 mg/dL 631) HDL CHOLESTEROL (BEAKER) (test code 23 mg/dL = 976) LDL CHOLESTEROL CALCULATED (BEAKER) 56 mg/dL (test code = 633) Triglyceride Reference Range: Low Risk <150 Borderline 150-199 High Risk 200-499 Very High Risk >=500Cholesterol Reference Range: Low Risk <200 Borderline 200-239 High Risk >240HDL Cholesterol Reference Range: Low Risk >=60 High Risk <40LDL Cholesterol Reference Range: Optimal <100 Near Optimal 100-129 Borderline 130-159 High 160-189 Very High >=190 Specimen slightly ictericCBC W/PLT COUNT & AUTO DIFFERENTIAL 2018-12-23 12:24:00 Test Item Value Reference Range Interpretation Comments WHITE BLOOD CELL COUNT (BEAKER) 13.1 K/ L 3.5-10.5 H (test code = 775) RED BLOOD CELL COUNT (BEAKER) 3.67 M/ L 4.63-6.08 L (test code = 761) HEMOGLOBIN (BEAKER) (test code = 10.6 GM/DL 13.7-17.5 L 410) HEMATOCRIT (BEAKER) (test code = 33.6 % 40.1-51.0 L 411) MEAN CORPUSCULAR VOLUME (BEAKER) 91.6 fL 79.0-92.2 (test code = 753) MEAN CORPUSCULAR HEMOGLOBIN 28.9 pg 25.7-32.2 (BEAKER) (test code = 751) MEAN CORPUSCULAR HEMOGLOBIN CONC 31.5 GM/DL 32.3-36.5 L (BEAKER) (test code = 752) RED CELL DISTRIBUTION WIDTH 15.4 % 11.6-14.4 H (BEAKER) (test code = 412) PLATELET COUNT (BEAKER) (test 179 K/CU MM 150-450 code = 756) MEAN PLATELET VOLUME (BEAKER) 10.9 fL 9.4-12.4 (test code = 754) NUCLEATED RED BLOOD CELLS 0 /100 WBC 0-0 (BEAKER) (test code = 413) NEUTROPHILS RELATIVE PERCENT 88 % (BEAKER) (test code = 429) LYMPHOCYTES RELATIVE PERCENT 5 % (BEAKER) (test code = 430) MONOCYTES RELATIVE PERCENT 6 % (BEAKER) (test code = 431) EOSINOPHILS RELATIVE PERCENT 0 % (BEAKER) (test code = 432) BASOPHILS RELATIVE PERCENT 0 % (BEAKER) (test code = 437) NEUTROPHILS ABSOLUTE COUNT 11.56 K/ L 1.78-5.38 H (BEAKER) (test code = 670) LYMPHOCYTES ABSOLUTE COUNT 0.60 K/ L 1.32-3.57 L (BEAKER) (test code = 414) MONOCYTES ABSOLUTE COUNT (BEAKER) 0.79 K/ L 0.30-0.82 (test code = 415) EOSINOPHILS ABSOLUTE COUNT 0.00 K/ L 0.04-0.54 L (BEAKER) (test code = 416) BASOPHILS ABSOLUTE COUNT (BEAKER) 0.02 K/ L 0.01-0.08 (test code = 417) IMMATURE GRANULOCYTES-RELATIVE 1 % 0-1 PERCENT (BEAKER) (test code = 2801) HEMOGLOBIN AND [id number] 12:16:00 Test Item Value Reference Range Interpretation Comments HEMOGLOBIN (BEAKER) (test code = 10.6 GM/DL 13.7-17.5 L 410) HEMATOCRIT (BEAKER) (test code = 33.6 % 40.1-51.0 L 411) POCT-GLUCOSE [id number] 11:58:00 Test Item Value Reference Range Interpretation Comments POC-GLUCOSE METER 398 mg/dL 70-[address] [facility] 6720 (BEAKER) (test [facility] = [facility] [address] CT, [id number] 08:53:00FINAL REPORT TECHNIQUE: CT of the abdomen and pelvis WITHOUT and WITH intravenous contrast and WITHOUT oral contrast. Dose modulation, iterative reconstruction, and/or weight-based adjustment of the mA/kV was utilized to reduce the radiation dose to as low as reasonably achievable. INDICATION: 63-year-old man with concern for diverticular bleed. COMPARISON: Outside abdomen and pelvis CT from earlier same date. FINDINGS: LOWER THORAX: Small bilateral pleural effusions. HEPATOBILIARY: No focal hepatic lesions. Cholelithiasis without gallbladder wall thickening or pericholecystic edema. No biliary ductal dilatation.SPLEEN: No splenomegaly.PANCREAS: No focal masses or ductal dilatation. ADRENALS: No adrenal nodules.KIDNEYS/URETERS: Both kidneys are enhancing on the precontrast series from prior contrast administration. Enhancing masses in both kidneys measure 9 x 8.4 cm on the right and 1.8 x 1.6 cm on the left. The right renal mass contains curvilinear calcifications. Neither renal mass extends beyond the renal fascia or appears to invade the renal vasculature or inferior vena cava. 1.2 x 1 cm cyst in the right lower pole.PELVIC ORGANS/BLADDER: Unremarkable. PERITONEUM/RETROPERITONEUM: Nonspecific mild fat stranding in the retroperitoneum bilaterally. No free air or fluid.LYMPH NODES: Scattered borderline prominent retroperitoneal lymph nodes measure up to 1 cm.VESSELS: Atherosclerotic disease in the abdominal aorta and branch vessels. The aortic branch vessels are patent. 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 Occlusion of a short segment ofthe left deep femoral artery with distal reconstitution. Infrarenal abdominal aortic aneurysm measures approximately 3.4 cm in diameter. GI TRACT: No distention or wall thickening. Persistent contrast extravasation within the ascending colon, better seen on previous CT. Scattered colonic diverticula. Normal appendix. BONES AND SOFT TISSUES: Degenerative changes of the visualized spine. Diastases recti. IMPRESSION:Persistent active bleeding in the ascending colon. Bilateral enhancing renal masses measure 9 cm on the right and 1.8 cm on the left, and are suspicious for primary renal neoplasm such asrenal cell carcinoma. Borderline prominent retroperitoneal lymph nodes, nonspecific and likely reactive. 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 Occlusion of a short segment ofthe left deep femoral artery with distal reconstitution. An abdominal aortic aneurysm measures 3.4 cm in diameter; a follow-up examination is recommended every 3 years. Signed: Josette Conrad MDReport Verified Date/Time: 12/23/2018 08:53:50 Reading Location: [address] Radiology Reading Room E lectronically signed by: JOSETTE CONRAD MD on 12/23/2018 08:53 AM HEMOGLOBIN AND [id number] 06:52:00 Test Item Value Reference Range Interpretation Comments HEMOGLOBIN (BEAKER) (test code = 13.8 GM/DL 13.7-17.5 410) HEMATOCRIT (BEAKER) (test code = 43.8 % 40.1-51.0 411) BASIC METABOLIC [id number] 06:05:00 Test Item Value Reference Range Interpretation Comments SODIUM (BEAKER) 135 meq/L 136-145 L (test code = 381) POTASSIUM (BEAKER) 4.0 meq/L 3.5-5.1 (test code = 379) CHLORIDE (BEAKER) 100 meq/L 98-107 (test code = 382) CO2 (BEAKER) (test 24 meq/L 22-29 code = 355) BLOOD UREA NITROGEN 13 mg/dL 7-21 (BEAKER) (test code = 354) CREATININE (BEAKER) 0.84 mg/dL 0.57-1.25 (test code = 358) GLUCOSE RANDOM 334 mg/dL 70-105 H (BEAKER) (test code = 652) CALCIUM (BEAKER) 8.3 mg/dL 8.4-10.2 L (test code = 697) EGFR (BEAKER) (test 92 mL/min/1.73 ESTIMA MALIK GFR IS code = 1092) sq m NOT ACCURATE CREATININE CLEARANCE IN PREDICTING GLOMERULAR FILTRATION RATE . ESTIMATED GFR I S NOT APPLICABLE FOR DIALYSIS PATIEN TS. Specimen slightly ictericPROTHROMBIN [id number] 05:22:00 Test Item Value Reference Range Interpretation Comments PROTIME (BEAKER) (test code = 16.5 seconds 11.9-14.2 H 759) INR (BEAKER) (test code = 370) 1.4 <=5.9 Effective 11/24/2018: PT Reference Range ChangeNew: 11.9-14.2 Previous: 11.7- 14.7RECOMMENDED COUMADIN/WARFARIN INR THERAPY RANGESSTANDARD DOSE: 2.0-3.0 Includes: PROPHYLAXIS for venous thrombosis, systemic embolization; TREATMENT for venous thrombosis and/or pulmonary embolus.HIGH RISK: Target INR is2.5-3.5 for patients wiht mechanical heart valves.
[2019-11-13 10:26] LABS: Absolute Lymphocytes (CBC) 0.7 K/uL (0.7-4.9); Basophils % 1.2 % (0-1.3); Hematocrit 41.1 % (39.6-49.0); Lymphocytes % 10.9 % (15.3-44.8); MPV 8.8 fL (7.6-11.3); RBC Red Blood Cell Count 5.99 M/uL (4.33-5.43)
[2019-11-13 11:02] LABS: Anisocytosis SLIGHT; Blood Morphology Comment NOTED (NOT SEEN); Hypochromasia 1+; Platelet Estimate ADEQ
[2019-11-13] MEDS ORDERED: FUROSEMIDE 40 MG/4 ML VIAL ONE (11:07)
--- NOTE | 2019-11-13 11:27 | ER ---
Nurse's Notes [facility] Name: Gavino Marin Age: 64 yrs Sex: Male : 1955 Arrival Date: 11/13/2019 Time: 09:43 Bed 6 Private MD: Diagnosis: Lymphedema, not elsewhere classified Presentation: 11/12 09:44 Chief complaint: Patient states: Hx of lymphedema, pt states "my legs just started aa5 draining about a week ago and it's never done that before". Pt denies SOB, denies feeling ill, reports leg swelling is at baseline. 09:44 Coronavirus screen: Proceed with normal triage. Patient denies a cough. Patient denies aa5 shortness of breath or difficulty breathing. Patient denies measured and/or subjective temperature greater than 100.4F prior to today's visit. Patient denies travel on a cruise ship or to a country the [facility] currently lists as an affected area. Patient denies contact with known and/or suspected case of COVID-19. Ebola Screen: Patient negative for fever greater than or equal to 101.5 degrees Fahrenheit, and additional compatible Ebola Virus Disease symptoms. Initial Sepsis Screen: Does the patient meet any 2 criteria? HR > 90 bpm. Does the patient have a suspected source of infection? No. Patient's initial sepsis screen is negative. Risk Assessment: Do you want to hurt yourself or someone else? Patient reports no desire to harm self or others. Onset of symptoms was October 2019. 09:44 Acuity: MAYKEL 3 aa5 09:44 Method Of Arrival: Ambulatory aa5 Historical: - Allergies: 09:45 PENICILLINS; aa5 - Home Meds: 09:45 aspirin 81mg daily [Active]; aa5 - PMHx: 09:45 Myocardial infarction; lymphedema; aa5 10:02 Kidney cancer; rb1 - PSHx: 09:45 CABG; Hernia repair; Heart stents; aa5 - Immunization history:: Adult Immunizations up to date. - Family history:: not pertinent. - Social history:: Smoking status: Patient/guardian denies using. - Hospitalizations: : No recent hospitalization is reported. Screenin:50 Abuse screen: Denies threats or abuse. Nutritional screening: No deficits noted. rb1 Tuberculosis screening: No symptoms or risk factors identified. Fall Risk None identified. Assessment: 09:50 General: Appears in no apparent distress. comfortable, Behavior is calm, cooperative, rb1 Denies fever, feeling ill, chills. Pain: Denies pain. Neuro: Level of Consciousness is awake, alert, obeys commands, Oriented to person, place, time, situation. Cardiovascular: Capillary refill < 3 seconds. Respiratory: Airway is patent Respiratory effort is even, unlabored, Respiratory pattern is regular, symmetrical, Denies shortness of breath. GI: No signs and/or symptoms were reported involving the gastrointestinal system. : No signs and/or symptoms were reported regarding the genitourinary system. Derm: Skin is pink, warm \\T\\ dry. dusky, Bilateral lower legs. Musculoskeletal: Range of motion: intact in all extremities. 10:50 Reassessment: Patient appears in no apparent distress at this time. No changes from rb1 previously documented assessment. 11:50 Reassessment: Wrapped bilateral legs with Kerlix and kvng wraps. Pt. tolerated well. rb1 Vital Signs: 09:44 BP 171 / 105; Pulse 102; Resp 18 S; Temp 97.7(O); Pulse Ox 100% on R/A; aa5 11:00 BP 146 / 93; Pulse 92; Resp 17; Pulse Ox 100% ; rb1 ED Course: 09:43 Patient arrived in ED. ag5 09:44 Willard Escobar MD is Attending Physician. rn 09:44 Arm band placed on Patient placed in an exam room, on a stretcher. aa5 09:50 Patient has correct armband on for positive identification. Bed in low position. Call rb1 light in reach. Side rails up X 1. Pulse ox on. NIBP on. 09:55 Triage completed. aa5 10:00 Sharona Mullins, RN is Primary Nurse. rb1 10:08 Initial lab(s) drawn, by az, sent to lab. Inserted saline lock: 20 gauge in right dh3 antecubital area, using aseptic technique. Blood collected. 11:57 No provider procedures requiring assistance completed. IV discontinued, intact, rb1 bleeding controlled, No redness/swelling at site. Pressure dressing applied. Administered Medications: 11:03 Drug: Lasix 40 mg Route: IVP; Site: right antecubital; rb1 11:15 Follow up: Response: No adverse reaction rb1 Outcome: 11:27 Discharge ordered by . rn 11:57 Patient left the ED. rb1 11:57 Discharged to home ambulatory. rb1 11:57 Condition: stable 11:57 Discharge instructions given to patient, Instructed on discharge instructions, follow up and referral plans. medication usage, Demonstrated understanding of instructions, follow-up care, medications, Prescriptions given X 1. Signatures: Willard Escobar MD MD rn Calderon, Audri RN RN aa5 Sharona Mullins RN RN rb1 Zulma Torres 3 [facility], [place]
--- NOTE | 2019-11-13 11:28 | EDPHYS ---
Physician Documentation [facility] Name: Gavino Marin Age: 64 yrs Sex: Male : 1955 Arrival Date: 11/13/2019 Time: 09:43 Bed 6 Private MD: ED Physician Willard Escobar HPI: 11/12 09:57 This 64 yrs old Male presents to ER via Ambulatory with complaints of Leg rn Problem, Drainage. 09:57 The patient presents with swelling. The complaints affect the right leg and left leg. rn Onset: The symptoms/episode began/occurred 2 week(s) ago. Modifying factors: The symptoms are alleviated by nothing. the symptoms are aggravated by nothing. Severity of symptoms: At their worst the symptoms were mild, in the emergency department the symptoms are unchanged. The patient has not experienced similar symptoms in the past. Reports cardiac bypass 9 years ago, had large legs before that, and now chronic lymphedema that has worsened after the surgery, not on diuretics. Came in today for weeping drainage from legs. No redness/fever/pain. Reports has been on his feet a lot more lately. No injury. . No sob or chest pain. . Historical: - Allergies: 09:45 PENICILLINS; aa5 - Home Meds: 09:45 aspirin 81mg daily [Active]; aa5 - PMHx: 09:45 Myocardial infarction; lymphedema; aa5 10:02 Kidney cancer; rb1 - PSHx: 09:45 CABG; Hernia repair; Heart stents; aa5 - Immunization history:: Adult Immunizations up to date. - Family history:: not pertinent. - Social history:: Smoking status: Patient/guardian denies using. - Hospitalizations: : No recent hospitalization is reported. ROS: 09:57 Constitutional: Negative for fever, chills, and weight loss, Eyes: Negative for injury, rn pain, redness, and discharge, Neck: Negative for injury, pain, and swelling, Cardiovascular: Negative for chest pain, palpitations Respiratory: Negative for shortness of breath, cough, wheezing, and pleuritic chest pain, Abdomen/GI: Negative for abdominal pain, nausea, vomiting, diarrhea, and constipation, MS/Extremity: Negative for injury and deformity, Skin: + wepeing spots on legs Neuro: Negative for headache, weakness, numbness, tingling, and seizure. Exam: 09:57 Constitutional: This is a well developed, well nourished patient who is awake, alert, learning coach to room without difficulty or assistance. Head/Face: Normocephalic, atraumatic. Cardiovascular: Regular rate and rhythm. No pulse deficits. Respiratory: Speaking full sentences, unlabored breathing Abdomen/GI: soft, non-tender Skin: + chronic lymphedema changes of bilateral lower ext with small areas of clear yellow drainage, no erythema/warmth/fluctuance. No purulence. MS/ Extremity: Pulses equal, no cyanosis. Neurovascular intact. Full, normal range of motion. Equal circumference. 2+ pitting edema bilateral lower ext. Neuro: Awake and alert, GCS 15, oriented to person, place, time, and situation. Cranial nerves II-XII grossly intact. Motor strength 5/5 in all extremities. Sensory grossly intact. Cerebellar exam normal. Normal gait. Vital Signs: 09:44 BP 171 / 105; Pulse 102; Resp 18 S; Temp 97.7(O); Pulse Ox 100% on R/A; aa5 11:00 BP 146 / 93; Pulse 92; Resp 17; Pulse Ox 100% ; rb1 MDM: 09:44 Patient medically screened. rn 11:25 Differential diagnosis: edema, lymphedema, renal failure. Data reviewed: vital signs, rn nurses notes, lab test result(s), and as a result, I will discharge patient. Counseling: I had a detailed discussion with the patient and/or guardian regarding: the historical points, exam findings, and any diagnostic results supporting the discharge/admit diagnosis, lab results, the need for outpatient follow up, to return to the emergency department if symptoms worsen or persist or if there are any questions or concerns that arise at home. Response to treatment: the patient's symptoms have mildly improved after treatment, and as a result, I will discharge patient. Special discussion: I discussed with the patient/guardian in detail that at this point there is no indication for admission to the hospital. It is understood, however, that if the symptoms persist or worsen the patient needs to return immediately for re-evaluation. ED course: No dyspnea, no oxygen requirement, naive to lasix, given lasix here with good response and normal renal function, will dc home on lasix for a few days and urged to f/u with cardiology and pcp for further management.. 11/12 09:57 Order name: CBC with Diff rn 11/12 09:57 Order name: Basic Metabolic Panel rn 11/12 09:57 Order name: BNP; Complete Time: 10:54 rn 11/12 10:07 Order name: CBC with Automated Diff; Complete Time: 11:22 EDMS 11/12 10:07 Order name: Basic Metabolic Panel; Complete Time: 10:54 EDDC 11/12 11:02 Order name: Manual Differential; Complete Time: 11:22 [facility] 11/12 09:57 Order name: IV Start; Complete Time: 10:11 rn Administered Medications: 11:03 Drug: Lasix 40 mg Route: IVP; Site: right antecubital; rb1 11:15 Follow up: Response: No adverse reaction rb1 Disposition: 11/13/19 11:27 Discharged to Home. Impression: Lymphedema, not elsewhere classified. - Condition is Stable. - Discharge Instructions: Lymphedema. - Prescriptions for Lasix 40 mg Oral Tablet - take 1 tablet by ORAL route once daily for 5 days; 5 tablet. - Medication Reconciliation Form, Thank You Letter, Antibiotic Education, Prescription Opioid Use form. - Follow up: Private Physician; When: As needed; Reason: Recheck today's complaints, Re-evaluation by your physician. - Problem is new. - Symptoms have improved. Signatures: Dispatcher [employer] EDDC Willard Escobar MD MD rn Calderon, Audri RN RN aa5 Sharona Mullins, RN RN rb1 Corrections: (The following items were deleted from the chart) 11:57 11:27 11/13/2019 11:27 Discharged to Home. Impression: Lymphedema, not elsewhere rb1 classified. Condition is Stable. Forms are Medication Reconciliation Form, Thank You Letter, Antibiotic Education, Prescription Opioid Use. Follow up: Private Physician; When: As needed; Reason: Recheck today's complaints, Re-evaluation by your physician. Problem is new. Symptoms have improved. rn
[2019-11-13 12:03] VITALS: TEMP 97.7; O2SAT 100
[2019-11-13 12:04] VITALS: BP 146/93
== END 2019-11-13 11:57 | disposition home or self-care (01) ==
LOC: ER 09:40
DX: I89.0 Lymphedema, not elsewhere classified (principal); I25.2 Old myocardial infarction; Z79.82 Long term (current) use of aspirin; Z88.0 Allergy status to penicillin; Z95.1 Presence of aortocoronary bypass graft; Z95.818 Presence of other cardiac implants and grafts; Z85.528 Personal history of other malignant neoplasm of kidney
CPT/HCPCS: 85025; 80048; 36415; 83880; 96374; 99284; J1940

== ENCOUNTER 2020-02-25 10:16 | Emergency (ER) | payer OTHER, BC ==
--- OUTSIDE RECORDS SUMMARY | 2020-02-25 10:25 | XMS REPORT | Continuity of Care Document ---
:1955 Author Organization [facility] t Address [address] [place] [address] Care Team Providers Name Role Phone Doctor Unassigned, Name Attending Clinician Unavailable Samm VILLANUEVA, K.H. Attending Clinician JULIA BAUTISTA Attending Clinician Unavailable JULIA BAUTISTA Admitting Clinician Unavailable Advance Directives Directive Decision Effective Date Termination Date Comments Sour ce Partial Code This Yes 2018-12-23 2018-12-29 [facility] - code status was 00:00:00 00:00:00 Medical C enter determined by: Patient Drug Protocol After Arrest Occurs? Yes Mechanical Ventilation with Intubation? Yes Bag/Mask? Yes Internal/External Pacemaker? No Transfer to Critical Care? Yes Chest Compressions? No Defibrillation/Card ioversion? No Problems Condition Condition Condition Status Onset Resolution Last Treating Co mments Source Name Details Category Date Date Treatment Clinician Date GI bleed GI bleed Disease [facility] Allergies, Adverse Reactions, Alerts Allergy Allergy Status Severity Reaction(s) Onset Inactive Treating Comm ents Source Name Type Date Date Clinician Penicill Propensi Active Mother ANTONIA Jordan ins ty to 12-23 had PCN [facility] - adverse 00:00: allergy, Medical reaction 00 states [place] s children were "tested for allergy" and was told he was allergic Social History Social Habit Start Date Stop Date Quantity Comments Source History of tobacco Cigarette Smoker [facility] Sex Assigned At [facility] Cigarettes smoked 2018-12-27 2018-12-[address] [facility] - current (pack per 00:00:00 00:00:00 Medical Center day) - Reported Cigarette 2018-12-27 2018-12-[address] [facility] - pack-years 00:00:00 00:00:00 Medical Center History [facility] 2018-12-27 2018-12-[address] [facility] - Alcohol Frequency 00:00:00 00:00:00 Medical Center History [facility] 2018-12-27 2018-12-[address] [facility] - Alcohol Std Drinks 00:00:00 00:00:00 Medica l Center History [facility] 2018-12-27 2018-12-[address] [facility] - Alcohol Binge 00:00:00 00:00:[address] Alcohol Comment 2018-12-27 2018-12-27 7-8 cans daily [facility]00 [facility] Center Smoking Status Start Date Stop Date Source Former smoker 2018-12-27 00:00:00 2018-12-27 00:00:[address] [facility] Medications Ordered Filled Start Stop Current Ordering Indication Dosage Frequency Signature Comments Components Source Medication Medication Date Date Medication? Clinician (SIG) Name Name aspirin 81 2020- No 81mg QD Take [address] [facility] chewable 12-29 tablet (81 [facility] - tablet 00:00: 23:59 mg total) Medic al 00 :00 by mouth Center daily. carvedilol 2020- No 3.125mg Q.5D Take [address] (COREG) 12-29 tablet [facility] - 3.125 MG 00:00: 23:59 (3.125 mg Med ical tablet 00 :00 total) by Center mouth 2 (two) times daily. atorvastati 2020- No 40mg QD Take [address] [facility] (LIPITOR) 12-29- tablet (40 [facility] - 40 MG 00:00: 23:59 mg total) Medica l tablet 00 :00 by mouth Center nightly. metFORMIN 2020- No 850mg Take [address] [facility] (GLUCOPHAGE 12-29 tablet [facility] - ) 850 MG 00:00: 23:59 (850 mg Medic al tablet 00 :00 total) by Center mouth 2 (two) times daily with breakfast and dinner. glipiZIDE 5mg Take 1 [facility] (GLUCOTROL) 12-29 tablet (5 Teresa kes - 5 MG tablet 00:00: 23:59 mg total) Medical 00 :00 by mouth 2 Center (two) times daily before meals. Procedures This patient has no known procedures. Encounters Start End Encounter Admission Attending Care Care Encounter Source Date/Time Date/Time Type Type Clinicians Facility Department ID 2020-01-26 2020-01-26 Orders Doctor MODESTA [id number] 00:00:00 00:00:00 Only Unassigned, ROBERT [id number] [facility] [id number] 2020-01-21 2020-01-21 Refill Samm KYBRAYDEN [id number] 00:00:00 00:00:00 [place] [id number] [place] [id number] [id number] nal 059 [facility] 2019-12-30 2019-12-30 Telephone Samm KYBRAYDEN [id number] 00:00:00 00:00:00 [place] [id number] [place] [id number] [facility] [id number] [facility]9 [facility] Results Test Description Test Time Test Comments Results Result Comments Source POCT-GLUCOSE METER 2018-12-29 08:50:00 Test Item Value Reference Range Interpretation Comme [facility] POC-GLUCOSE METER (BEAKER) (test 136 mg/dL 70-110 H TESTED AT [facility] [address] [facility] code = 1538) [facility] 7703 0 BASIC METABOLIC [id number] 06:03:00 Test Item Value Reference Range Interpretation [...] S NOT APPLICABLE FOR DIALYSIS PATIEN TS. [id number] 05:52:00 Test Item Value Reference Range Interpretation Comments MAGNESIUM (BEAKER) (test code = 1.8 mg/dL 1.6-2.6 627) CBC W/PLT COUNT & AUTO [id number] 05:48:00 Test Item Value Reference Range Interpretation [...] (test code = 2801) CT, CHEST, WITH [id number] 04:16:00FINAL REPORT EXAMINATION: Noncontrast chest CT. CLINICAL [...] MDReport Verified Date/Time: 12/29/2018 04:16:24 Reading Location: [address] Reading Room POCT-GLUCOSE [id number] 22:47:00 Test Item Value Reference Range Interpretation Comments POC-GLUCOSE METER 187 mg/dL 70-110 H TESTED AT [place] [address] ([facility]) (test code = [facility] 1538) [address] POCT-GLUCOSE [id number] 19:08:00 Test Item Value Reference Range Interpretation Comments POC-GLUCOSE METER 123 mg/dL 70-110 H TESTED AT [place] [address] ([facility]) (test code = [facility] 1538) [address] [facility], MULTI, PHARM, [id number] 15:32:00FINAL REPORT PROCEDURE: MYOCARDIAL PERFUSION SPECT IMAGING (2-Day Stress/Rest)CPT CODE: 67865 INDICATION: Define severity of known CAD CARDIOVASCULAR [...] MDReport Verified Date/Time: 12/28/2018 15:32:38 Reading Location: [address] Reading Room POCT- GLUCOSE [id number] 13:05:00 Test Item Value Reference Range Interpretation Comments POC-GLUCOSE METER 125 mg/dL 70-110 H TESTED AT [place] [address] ([facility] (test code = [place] 1538) [address] POCT-GLUCOSE [id number] 12:33:00 Test Item Value Reference Range Interpretation Comments POC-GLUCOSE METER 111 mg/dL 70-110 H TESTED AT [place] [address] ([facility] (test code = OCT[place] Silver [facility] 1538) [address] POCT-GLUCOSE [id number] 08:13:00 Test Item Value Reference Range Interpretation Comments POC-GLUCOSE METER 135 mg/dL 70-110 H TESTED AT [place] [address] ([facility]) (test code = [place] 1538) [address] POCT-GLUCOSE [id number] 07:17:00 Test Item Value Reference Range Interpretation Comments POC-GLUCOSE METER 119 mg/dL 70-110 H TESTED AT [facility] 6720 (BEAKER) (test code = [place] 1538) [address] CBC W/PLT COUNT & AUTO [id number] 07:15:00 Test Item Value Reference Range Interpretation Comments WHITE BLOOD CELL COUNT (BEAKER) 6.7 K/ L 3.5-10.5 (test code = 775) RED BLOOD CELL COUNT (BEAKER) 2.62 M/ L 4.63-6.08 L (test code [...] (BEAKER) (test code = 2801) BASIC METABOLIC [id number] 07:12:00 Test Item Value Reference Range Interpretation [...] S NOT APPLICABLE FOR DIALYSIS PATIEN TS. [id number] 07:10:00 Test Item Value Reference Range Interpretation Comments MAGNESIUM (BEAKER) (test code = 1.8 mg/dL 1.6-2.6 627) POCT-GLUCOSE [id number] 21:14:00 Test Item Value Reference Range Interpretation Comments POC-GLUCOSE METER 143 mg/dL 70-110 H TESTED AT [facility] 6720 (BEAKER) (test code = [place] 1538) [address] TISSUE [id number] 18:13:00Surgical Pathology Report Case: [id number] Authorizing Provider: Joshua Harper MD Collected: 12/26/2018 1223 Ordering Location: [address] Received: 12/27/2018 0757 Service Pathologist: Gisell Rodriguez MD Specimen: Polyp, Colon - Left/Descending, via hot snare COLON, LEFT/DESCENDING, ENDOSCOPIC POLYPECTOMY: - TUBULAR ADENOMA - NO HIGH GRADE DYSPLASIA OR INVASIVE CARCINOMA SEEN Signing Pathologist Direct Phone Line: [phone] signed by Gisell Rodriguez MD on 12/27/2018 at 6:13 [id number] hemorrhage, unspecified gastrointestinal hemorrhag e typePolyp, colon-left [...] following filtration in cassette A1. RP/ew PERFORMEDPOCT-GLUCOSE [id number] 18:10:00 Test Item Value Reference Range Interpretation Comments POC-GLUCOSE METER 158 mg/dL 70-110 H TESTED AT [place] [address] ([facility]) [facility] 1538) [address] POCT-GLUCOSE [id number] 13:47:00 Test Item Value Reference Range Interpretation Comments POC-GLUCOSE METER 96 mg/dL 70-110 TESTED AT [place] [address] ([facility]) (test code = [facility] Nadeem [facility] [address] 1538) HEMOGLOBIN [id number] 10:07:00 Test Item Value Reference Range Interpretation Comments HEMOGLOBIN A1C ([facility]) (test code = 9.0 % 4.3-6.1 H 368) POCT-GLUCOSE [id number] 08:44:00 Test Item Value Reference Range Interpretation Comments POC-GLUCOSE METER 93 mg/dL 70-110 TESTED AT [place] [address] ([facility]) ([facility] = [facility] [address] 1538) BASIC METABOLIC [id number] 06:55:00 Test Item Value Reference Range Interpretation Comments SODIUM ([facility]) 137 meq/L 136-145 (test code = 381) POTASSIUM ([facility]) 3.4 meq/L 3.5-5.1 L (test code = [...] S NOT APPLICABLE FOR DIALYSIS PATIEN TS. [id number] 06:54:00 Test Item Value Reference Range Interpretation Comments MAGNESIUM (BEAKER) (test code = 1.6 mg/dL 1.6-2.6 627) LIPID [id number] 06:54:00 Test Item Value Reference Range Interpretation [...] Very High >=190CBC W/PLT COUNT & AUTO [id number] 05:06:00 Test Item Value Reference Range Interpretation [...] PERCENT (BEAKER) (test code = 2801) POCT-GLUCOSE [id number] 22:01:00 Test Item Value Reference Range Interpretation Comments POC-GLUCOSE METER 96 mg/dL 70-110 TESTED AT [place] [address] (BEAKER) (test code = [place] [address] 1538) POCT-GLUCOSE [id number] 17:38:00 Test Item Value Reference Range Interpretation Comments POC-GLUCOSE METER 167 mg/dL 70-110 H TESTED AT [facility] 6720 (BEAKER) (test code = [place] [facility] 1538) [address] HEMOGLOBIN AND [id number] 16:24:00 Test Item Value Reference Range Interpretation Comments HEMOGLOBIN (BEAKER) (test code = 7.3 GM/DL 13.7-17.5 L 410) HEMATOCRIT (BEAKER) (test code = 23.0 % 40.1-51.0 L 411) POCT-GLUCOSE [id number] 14:40:00 Test Item Value Reference Range Interpretation Comments POC-GLUCOSE METER 149 mg/dL 70-110 H TESTED AT [place] [address] ([facility] (test code = [facility] Nadeem [facility] 1538) [address] [id number] 09:08:00 Test Item Value Reference Range Interpretation Comments MAGNESIUM (BEAKER) (test code = 1.8 mg/dL 1.6-2.6 627) BASIC METABOLIC [id number] 09:08:00 Test Item Value Reference Range Interpretation [...] Specimen slightly ictericCBC W/PLT COUNT & AUTO [id number] 08:26:00 Test Item Value Reference Range Interpretation [...] (BEAKER) (test code = 2801) HEMOGLOBIN AND [id number] 08:18:00 Test Item Value Reference Range Interpretation Comments HEMOGLOBIN (BEAKER) (test code = 7.6 GM/DL 13.7-17.5 L 410) HEMATOCRIT (BEAKER) (test code = 24.2 % 40.1-51.0 L 411) POCT-GLUCOSE [id number] 08:15:00 Test Item Value Reference Range Interpretation Comments POC-GLUCOSE METER 141 mg/dL 70-110 H TESTED AT [facility] 6720 (RUSSELL) (test code = [place] 1538) [address] B-TYPE NATRIURETIC FACTOR (BNP)2018-12-26 08:09:00 Test Item Value Reference Range Interpretation Comments B-TYPE NATRIURETIC PEPTIDE (RUSSELL) 374 pg/mL 0-100 H (test code = 700) U/S, RENAL, [id number] 07:07:00Reason for exam:->akiFINAL REPORT Ultrasound of the [...] Urological consult is recommended. No hydronephrosis. Signed: Amuta, Raf MDReport Verified Date/Time: 12/26/2018 07:07:06 GLOBIN AND [id number] 01:20:00 Test Item Value Reference Range Interpretation Comments HEMOGLOBIN (BEAKER) (test code = 7.3 GM/DL 13.7-17.5 L 410) HEMATOCRIT (BEAKER) (test code = 23.0 % 40.1-51.0 L 411) URINALYSIS W/ [id number] 00:37:00 Test Item Value Reference Range Interpretation [...] 1583) SOURCE(BEAKER) (test code = 2795) POCT-GLUCOSE [id number] 21:57:00 Test Item Value Reference Range Interpretation Comments POC-GLUCOSE METER 114 mg/dL 70-110 H TESTED AT [facility] 6720 (BEAKER) (test code = [place] 1538) [address] CREATININE, RANDOM [id number] 19:04:00 Test Item Value Reference Range Interpretation Comments CREATININE URINE (BEAKER) (test 145.7 mg/dL code = 375) Reference Range: No NormalsPROTEIN, RANDOM [id number] 19:04:00 Test Item Value Reference Range Interpretation Comments PROTEIN, URINE (BEAKER) (test code = 20 mg/dL 0-14 H 1569) SODIUM, RANDOM [id number] 19:04:00 Test Item Value Reference Range Interpretation Comments SODIUM URINE (BEAKER) (test code = 51 meq/L 243) Reference Range: No NormalsPOCT-GLUCOSE [id number] 17:27:00 Test Item Value Reference Range Interpretation Comments POC-GLUCOSE METER 121 mg/dL 70-110 H TESTED AT [place] [address] ([facility] (test code = [facility] Nadeem [facility] 1538) [address] HEMOGLOBIN AND [id number] 14:57:00 Test Item Value Reference Range Interpretation Comments HEMOGLOBIN (BEAKER) (test code = 7.5 GM/DL 13.7-17.5 L 410) HEMATOCRIT (BEAKER) (test code = 23.5 % 40.1-51.0 L 411) POCT-GLUCOSE [id number] 12:09:00 Test Item Value Reference Range Interpretation Comments POC-GLUCOSE METER 162 mg/dL 70-110 H TESTED AT [place] [address] ([facility] (test code = [facility] Nadeem [facility] 1538) [address] POCT-GLUCOSE [id number] 08:20:00 Test Item Value Reference Range Interpretation Comments POC-GLUCOSE METER 204 mg/dL 70-110 H TESTED AT [place] [address] ([facility]) (test code = [facility] 1538) [address] HEMOGLOBIN AND [id number] 06:58:00 Test Item Value Reference Range Interpretation Comments HEMOGLOBIN (BEAKER) (test code = 7.2 GM/DL 13.7-17.5 L 410) HEMATOCRIT (BEAKER) (test code = 22.6 % 40.1-51.0 L 411) BASIC METABOLIC [id number] 04:16:00 Test Item Value Reference Range Interpretation [...] pg/mL 0-100 H (test code = 700) [id number] 03:47:00 Test Item Value Reference Range Interpretation Comments MAGNESIUM (BEAKER) (test code = 2.1 mg/dL 1.6-2.6 627) CBC W/PLT COUNT & AUTO [id number] 03:40:00 Test Item Value Reference Range Interpretation [...] (BEAKER) (test code = 2801) HEMOGLOBIN AND [id number] 03:12:00 Test Item Value Reference Range Interpretation Comments HEMOGLOBIN (BEAKER) (test code = 7.5 GM/DL 13.7-17.5 L 410) HEMATOCRIT (BEAKER) (test code = 23.0 % 40.1-51.0 L 411) POCT-GLUCOSE [id number] 21:07:00 Test Item Value Reference Range Interpretation Comments POC-GLUCOSE METER 269 mg/dL 70-110 H TESTED AT [facility] 6720 (BEAKER) (test code = [place] Nadeem [place] 1538) [address] HEMOGLOBIN AND [id number] 18:32:00 Test Item Value Reference Range Interpretation Comments HEMOGLOBIN (BEAKER) (test code = 8.5 GM/DL 13.7-17.5 L 410) HEMATOCRIT (BEAKER) (test code = 25.8 % 40.1-51.0 L 411) POCT-GLUCOSE [id number] 17:19:00 Test Item Value Reference Range Interpretation Comments POC-GLUCOSE METER 246 mg/dL 70-110 H TESTED AT [place] [address] ([facility] (test code = [place] 1538) [address] HEMOGLOBIN [id number] 12:35:00 Test Item Value Reference Range Interpretation Comments HEMOGLOBIN A1C (BEAKER) (test code = 9.8 % 4.3-6.1 H 368) POCT-GLUCOSE [id number] 11:33:00 Test Item Value Reference Range Interpretation Comments POC-GLUCOSE METER 282 mg/dL 70-110 H TESTED AT [place] [address] ([facility]) (test code = [place] Silver [place] 1538) [address] CBC W/PLT COUNT & AUTO [id number] 08:56:00 Test Item Value Reference Range Interpretation [...] 3438) Received comment: User comments: Slide comments:POCT-GLUCOSE [id number] 08:09:00 Test Item Value Reference Range Interpretation Comments POC-GLUCOSE METER 277 mg/dL 70-110 H TESTED AT [facility] 6720 (BEAKER) (test code = [place] Silver [facility] 1538) [address] BASIC METABOLIC [id number] 05:22:00 Test Item Value Reference Range Interpretation [...] S NOT APPLICABLE FOR DIALYSIS PATIEN TS. [id number] 04:55:00 Test Item Value Reference Range Interpretation Comments MAGNESIUM (BEAKER) 2.3 mg/dL 1.6-2.6 Specimen slightly (test code = 627) hemolyzed [id number] 00:33:00 Test Item Value Reference Range Interpretation Comments MAGNESIUM (BEAKER) 2.7 mg/dL 1.6-2.6 H Specimen slightly (test code = 627) hemolyzed HEMOGLOBIN AND [id number] 00:22:00 Test Item Value Reference Range Interpretation Comments HEMOGLOBIN (BEAKER) (test code = 9.2 GM/DL 13.7-17.5 L 410) HEMATOCRIT (BEAKER) (test code = 28.8 % 40.1-51.0 L 411) POCT-GLUCOSE [id number] 22:21:00 Test Item Value Reference Range Interpretation Comments POC-GLUCOSE METER 360 mg/dL 70-110 H TESTED AT [facility] 6720 (BEAKER) (test code = CAITLYNSC Nadeem [facility] 1538) [address] ANG, ARTERIAL EMBOLIZATION FOR [id number] 18:54:00Reason for exam:- >possible diverticular bleedFINAL REPORT [...] inch guide wire was advanced. A 5 [place] sheath was utilized. A [address] catheter was placed selectively into the [...] Two coils were necessary. Signed: Jerri Lynne MDReport Verified Date/Time: 12/23/2018 18:54:01 Reading Location: [place] [address] Angio Body Reading Room HEMOGLOBIN AND [id number] 18:47:00 Test Item Value Reference Range Interpretation Comments HEMOGLOBIN (BEAKER) (test code = 10.1 GM/DL 13.7-17.5 L 410) HEMATOCRIT (BEAKER) (test code = 32.2 % 40.1-51.0 L 411) HEMOGLOBIN [id number] 14:36:00 Test Item Value Reference Range Interpretation Comments HEMOGLOBIN A1C (BEAKER) (test code = 10.2 % 4.3-6.1 H 368) [id number] 12:58:00 Test Item Value Reference Range Interpretation Comments MAGNESIUM (BEAKER) (test code = 0.9 mg/dL 1.6-2.6 LL 627) LIPID [id number] 12:47:00 Test Item Value Reference Range Interpretation [...] (BEAKER) (test code = 2801) HEMOGLOBIN AND [id number] 12:16:00 Test Item Value Reference Range Interpretation Comments HEMOGLOBIN (BEAKER) (test code = 10.6 GM/DL 13.7-17.5 L 410) HEMATOCRIT (BEAKER) (test code = 33.6 % 40.1-51.0 L 411) POCT-GLUCOSE [id number] 11:58:00 Test Item Value Reference Range Interpretation Comments POC-GLUCOSE METER 398 mg/dL 70-110 H TESTED AT [facility] 67 (BEAKER) (test code = OCT[place]IO [place] 1538) [address] CT, [id number] 08:53:00FINAL REPORT TECHNIQUE: CT of the abdomen [...] recommended every 3 years. Signed: Josette Conrad Verified Date/Time: 12/23/2018 08:53:50 Reading Location: [address] Radiology Reading Room E lectronically signed by: JOSETTE CONRAD MD on 12/23/2018 08:53 AM HEMOGLOBIN AND [id number] 06:52:00 Test Item Value Reference Range Interpretation Comments HEMOGLOBIN (BEAKER) (test code = 13.8 GM/DL 13.7-17.5 410) HEMATOCRIT (BEAKER) (test code = 43.8 % 40.1-51.0 411) BASIC METABOLIC [id number] 06:05:00 Test Item Value Reference Range Interpretation [...] FOR DIALYSIS PATIEN TS. Specimen slightly ictericPROTHROMBIN TIME/[id number] 05:22:00 Test Item Value Reference Range Interpretation [...]
--- OUTSIDE RECORDS SUMMARY | 2020-02-25 10:25 | XMS REPORT | Clinical Summary ---
:1955 Author Organization [facility] Address [address] [place] [address] Care Team Providers Name Role Phone Unavailable Primary Care Provider Unavailable Allergies Active Allergy Reactions Severity Noted Date Comments Penicillins 12/23/2018 Mother had PCN allergy, states children were "tested fo r allergy" and was told he was allergic Medications Medication Sig Dispensed Refills Start Date End Date Status aspirin 81 MG Take 1 tablet (81 30 tablet 12/29/2018 020 chewable tablet mg total) by mouth daily. carvedilol (COREG) Take 1 tablet 60 tablet 12/29/20182019 3.125 MG tablet (3.125 mg total) by mouth 2 (two) times daily. atorvastatin Take 1 tablet (40 30 tablet 12/29/2018 12/29/19 20 (LIPITOR) 40 MG mg total) by tablet mouth nightly. metFORMIN Take 1 tablet 60 tablet 12/29/2018 12/29/2019 Expi red (GLUCOPHAGE) 850 MG (850 mg total) by tablet mouth 2 (two) times daily with breakfast and dinner. glipiZIDE Take 1 tablet (5 60 tablet 12/29/2018 12/29/2019 E xpired (GLUCOTROL) 5 MG mg total) by tablet mouth 2 (two) times daily before meals. Active Problems Problem Noted Date GI bleed 12/23/2018 Social History Tobacco Use Types Packs/Day Years Used Date Former Smoker Cigarettes 0.5 20 Smokeless Tobacco: Never Used Alcohol Use Drinks/Week oz/Week Comments Yes 21 Cans of beer 12.6 7-8 cans daily Alcohol Habits Answer Date Recorded How often do you have a drink containing 4 or more times a w [place] 12/27/2018 alcohol? How many drinks containing alcohol [...] travel history available. Last Filed Vital Signs Not on file Plan of Treatment Not on file Results Not on fileafter 02/24/2019 Insurance Payer Benefit Plan / Group Subscriber ID Type Phone A ddress MEDICARE MEDICARE A B xxxxxxxxxxx Medicare Advance Directives For more information, please contact:[facility] [place], [place] [phone] Code Status Date Activated Date Inactivated Comments Partial Code 12/23/2018 4:26 AM 12/29/2018 2:06 PM This code status was determined by: Patient Drug Protocol After Arrest Occurs? Yes Mechanical Ventilation with Intubation? Yes Bag/Mask? Yes Internal/External Pacemaker? No Transfer to Critical Care? Yes Chest Compressions? No Defibrillation/Cardioversion? No
[2020-02-25 11:18] LABS: Protime INR 1.33
[2020-02-25 11:22] LABS: Absolute Lymphocytes (CBC) 0.3 K/uL (0.7-4.9); Basophils % 2.3 % (0-1.3); Hematocrit 46.6 % (39.6-49.0); MPV 8.8 fL (7.6-11.3); RBC Red Blood Cell Count 6.74 M/uL (4.33-5.43)
[2020-02-25 11:30] LABS: Albumin 3.3 g/dL (3.4-5.0); Bilirubin Total 2.5 mg/dL (0.2-1.0); Potassium 3.7 mmol/L (3.5-5.1); Protein, Total 9.3 g/dL (6.4-8.2)
[2020-02-25] MEDS ORDERED: NA CHLORIDE 0.9% 1,000 ML ONE (11:57)
[2020-02-25 12:26] LABS: Anisocytosis 2+; Blood Morphology Comment NOTED (NOT SEEN); Hypochromasia 1+; Platelet Estimate ADEQ; Urine White Blood Cell Casts OK
[2020-02-25] MEDS ORDERED: ONDANSETRON 4 MG/2 ML VIAL ONE (12:48)
[2020-02-25] MEDS ORDERED: MORPHINE 4 MG/ML SYR ONE (12:48)
[2020-02-25] MEDS ORDERED: HYDROCODONE/APAP 10/325 TAB ONE (12:55)
[2020-02-25 15:08] LABS: Urine Appearance CLOUDY; Urine Blood 3+ (NEG); Urine Color RED; Urine Glucose TRACE (NEG); Urine Protein 3+ (NEG); Urine Specific Gravity 1.015 (1.005-1.030); Urine pH 8.5 (5.0-7.0)
[2020-02-25 15:09] LABS: Urine Microscopic Reflex ORDER UMIC
[2020-02-25 15:13] LABS: Urine Bilirubin NEGATIVE (NEG)
[2020-02-25 15:17] LABS: Urine Bacteria <20 /HPF (NONE SEEN); Urine Culture Reflex Order REFLEXED; Urine RBC LOADED /HPF (NONE SEEN)
--- NOTE | 2020-02-25 16:06 | EDPHYS ---
Physician Documentation [facility] Name: Gavino Marin Age: 65 yrs Sex: Male : 1955 Arrival Date: 02/25/2020 Time: 10:21 Bed 16 Private MD: ED Physician Indra Brownlee HPI: 02/24 11:44 This 65 yrs old Male presents to ER via Ambulatory with complaints of Blood ma2 in urine. 11:44 The patient presents with hematuria. Onset: The symptoms/episode began/occurred ma2 gradually, 1 day(s) ago. Associated signs and symptoms: Pertinent negatives: constipation, dysuria. Severity of symptoms: At their worst the symptoms were mild, in the emergency department the symptoms are unchanged. The patient has experienced similar episodes in the past. has right kidney cancer undergoing chemotherapy . Historical: - Allergies: 10:38 PENICILLINS; iw - Home Meds: 10:38 aspirin 81 mg oral TbEC once daily [Active]; stool softner [Active]; iw - PMHx: 10:38 kidney cancer; LYMPH EDEMA; Myocardial infarction; iw - PSHx: 10:38 CABG; Hernia repair; Heart stents; iw - Immunization history:: Adult Immunizations up to date. - Social history:: Smoking status: Patient/guardian denies using tobacco, the patient reports quitting approximately 10 years ago, Patient/guardian denies using alcohol, street drugs, The patient lives with family. - Family history:: not pertinent. ROS: 11:44 Constitutional: Negative for fever, chills, and weight loss. ma2 11:44 All other systems are negative. Exam: 11:44 Constitutional: This is a well developed, well nourished patient who is awake, alert, ma2 and in no acute distress. Neck: Trachea midline, no thyromegaly or masses palpated, and no cervical lymphadenopathy. Supple, full range of motion without nuchal rigidity, or vertebral point tenderness. No Meningismus. Chest/axilla: Normal chest wall appearance and motion. Nontender with no deformity. No lesions are appreciated. Cardiovascular: Regular rate and rhythm with a normal S1 and S2. No gallops, murmurs, or rubs. Normal PMI, no JVD. No pulse deficits. Respiratory: Lungs have equal breath sounds bilaterally, clear to auscultation and percussion. No rales, rhonchi or wheezes noted. No increased work of breathing, no retractions or nasal flaring. Abdomen/GI: Soft, non-tender, with normal bowel sounds. No distension or tympany. No guarding or rebound. No evidence of tenderness throughout. Back: No spinal tenderness. No costovertebral tenderness. Full range of motion. MS/ Extremity: Pulses equal, no cyanosis. Neurovascular intact. Full, normal range of motion. Neuro: Awake and alert, GCS 15, oriented to person, place, time, and situation. Cranial nerves II-XII grossly intact. Motor strength 5/5 in all extremities. Sensory grossly intact. Cerebellar exam normal. Normal gait. Vital Signs: 10:34 BP 183 / 100; Pulse 100; Resp 16; Temp 98.0; Pulse Ox 97% on R/A; Weight 106.59 kg; iw Height 5 ft. 11 in. (180.34 cm); Pain 0/10; 11:52 BP 167 / 106; Pulse 101; Resp 16; Pulse Ox 100% on R/A; iw 13:23 BP 186 / 93; Pulse 95; Resp 16; Pulse Ox 100% ; ls4 10:34 Body Mass Index 32.78 (106.59 kg, 180.34 cm) iw MDM: 10:26 Patient medically screened. ma2 11:44 Differential diagnosis: nonspecific abdominal pain, UTI, urinary retention, ma2 prostatitis, urethritis. 16:05 Data reviewed: vital signs, nurses notes. Counseling: I had a detailed discussion with ma2 the patient and/or guardian regarding: the historical points, exam findings, and any diagnostic results supporting the discharge/admit diagnosis, the presence of at least one elevated blood pressure reading (>120/80) during this emergency department visit, the need for outpatient follow up. Response to treatment: the patient's symptoms have markedly improved after treatment. 02/24 10:26 Order name: CBC with Diff; Complete Time: 12:37 [facility] 02/24 10:26 Order name: CMP; Complete Time: 12:14 [facility] 02/24 10:26 Order name: PT-INR; Complete Time: 12:14 [facility] 02/24 11:34 Order name: CBC Smear Scan; Complete Time: 12:37 EDMS 02/24 14:24 Order name: Urinalysis; Complete Time: 15:27 ls4 02/24 15:14 Order name: Urine Microscopic Only; Complete Time: 15:27 EDMS 02/24 15:18 Order name: Urine Culture EDMS Administered Medications: 11:49 Drug: NS 0.9% 1000 ml Route: IV; Rate: 1 bolus; Site: right antecubital; iw 12:38 Drug: Zofran (Ondansetron) 4 mg Route: IVP; Site: right antecubital; ls4 13:10 Follow up: Response: No adverse reaction ls4 12:42 Not Given (Patient Refused): morphine 4 mg IVP once; RASS on ADMIN: Combtv4, Very ls4 Agttd3, Agttd2, Rstlss1, AlertClm0, Drwsy-1, Lt Sdtn-2, Mod Sdtn-3, Dp Sdtn-4, UnArsble-5 12:45 CANCELLED (Duplicate Order): [place] 10 mg-325 mg 1 tabs PO once; RASS on ADMIN: Combtv4, ls4 Very Agttd3, Agttd2, Rstlss1, AlertClm0, Drwsy-1, Lt Sdtn-2, Mod Sdtn-3, Dp Sdtn-4, UnArsble-5 12:47 Not Given (Duplicate Order): [place] 5 mg-325 mg 2 tabs PO once; RASS on ADMIN: Combtv4, ls4 Very Agttd3, Agttd2, Rstlss1, AlertClm0, Drwsy-1, Lt Sdtn-2, Mod Sdtn-3, Dp Sdtn-4, UnArsble-5 12:48 Drug: [place] 10 mg-325 mg 1 tabs Route: PO; ls4 13:10 Follow up: Response: No adverse reaction; Pain is decreased ls4 16:10 Drug: Rocephin 1 grams Route: IV; Rate: calculated rate; Site: right antecubital; ls4 Disposition: 02/25/20 16:06 Discharged to Home. Impression: Acute cystitis with hematuria. - Condition is Stable. - Discharge Instructions: Urinary Tract Infection, Adult. - Prescriptions for Diclofenac Sodium 75 mg Oral Tablet Sustained Release - take 1 tablet by ORAL route 2 times per day; 30 tablet. Bactrim DS 800- 160 mg Oral Tablet - take 1 tablet by ORAL route every 12 hours for 5 days; 20 tablet. - Medication Reconciliation Form, Thank You Letter, Antibiotic Education, Prescription Opioid Use form. - Follow up: Private Physician; When: Tomorrow; Reason: Continuance of care. Signatures: Dispatcher [employer] Alexandrea Portillo RN RN iw Indra Brownlee MD MD ma2 Debbie Allison RN RN ls4 Corrections: (The following items were deleted from the chart) 12:45 12:45 [place] 10 mg-325 mg 1 tabs PO once; RASS on ADMIN: Combtv4, Very Agttd3, Agttd2, ls4 Rstlss1, AlertClm0, Drwsy-1, Lt Sdtn-2, Mod Sdtn-3, Dp Sdtn-4, UnArsble-5 ordered. ls4 17:19 16:06 02/25/2020 16:06 Discharged to Home. Impression: Acute cystitis with hematuria. ls4 Condition is Stable. Prescriptions for Diclofenac Sodium 75 mg Oral Tablet Sustained Release - take 1 tablet by ORAL route 2 times per day; 30 tablet, Bactrim DS 800-160 mg Oral Tablet - take 1 tablet by ORAL route every 12 hours for 5 days; 20 tablet. and Forms are Medication Reconciliation Form, Thank You Letter, Antibiotic Education, Prescription Opioid Use. Follow up: Private Physician; When: Tomorrow; Reason: Continuance of care. ma2
--- NOTE | 2020-02-25 16:06 | ER ---
Nurse's Notes [facility] Name: Gavino Marin Age: 65 yrs Sex: Male : 1955 Arrival Date: 02/25/2020 Time: 10:21 Bed 16 Private MD: Diagnosis: Acute cystitis with hematuria Presentation: 02/24 10:34 Chief complaint: Patient states: started having blood clots in urine yesterday morning, iw is having a lot of pain when he urinates and is only urinating a small amount, recently diagnosed with kidney cancer, starts treatment on Mar [address] Zhong. Coronavirus screen: At this time, the client does not indicate any symptoms associated with coronavirus-19. Ebola Screen: Patient negative for fever greater than or equal to 101.5 degrees Fahrenheit, and additional compatible Ebola Virus Disease symptoms Patient denies exposure to infectious person. Patient denies travel to an Ebola-affected area in the 21 days before illness onset. No symptoms or risks identified at this time. Initial Sepsis Screen: Does the patient meet any 2 criteria? No. Patient's initial sepsis screen is negative. Does the patient have a suspected source of infection? No. Patient's initial sepsis screen is negative. Risk Assessment: Do you want to hurt yourself or someone else? Patient reports no desire to harm self or others. Onset of symptoms was February 24, 2020. 10:34 Method Of Arrival: Ambulatory iw 10:34 Acuity: MAYKEL 3 iw Historical: - Allergies: 10:38 PENICILLINS; iw - Home Meds: 10:38 aspirin 81 mg oral TbEC once daily [Active]; stool softner [Active]; iw - PMHx: 10:38 kidney cancer; LYMPH EDEMA; Myocardial infarction; iw - PSHx: 10:38 CABG; Hernia repair; Heart stents; iw - Immunization history:: Adult Immunizations up to date. - Social history:: Smoking status: Patient/guardian denies using tobacco, the patient reports quitting approximately 10 years ago, Patient/guardian denies using alcohol, street drugs, The patient lives with family. - Family history:: not pertinent. Screenin:06 Abuse screen: Denies threats or abuse. Denies injuries from another. Nutritional iw screening: No deficits noted. Tuberculosis screening: No symptoms or risk factors identified. Assessment: 11:05 General: Appears in no apparent distress. Behavior is calm, cooperative. Pain: iw Complains of pain in suprapubic area. Neuro: Level of Consciousness is awake, alert, obeys commands, Oriented to person, place, time, situation, Moves all extremities. Cardiovascular: Patient's skin is warm and dry. Respiratory: Respiratory effort is even, unlabored, Respiratory pattern is regular. : Reports discharge, bloody, pain in suprapubic area with urination. Derm: Skin. Musculoskeletal: Range of motion: intact in all extremities. 11:29 Reassessment: pt only able to urinate very small amount, appears to be mostly darvin iw blood. 11:53 Reassessment: pt still unable to urinate, Dr. Brownlee notified, verbal order for NS iw liter bolus started now. 13:24 Reassessment: Patient appears in no apparent distress at this time. Patient and/or ls4 family updated on plan of care and expected duration. Pain level reassessed. Patient is alert, oriented x 3, equal unlabored respirations, skin warm/dry/pink. Vital Signs: 10:34 BP 183 / 100; Pulse 100; Resp 16; Temp 98.0; Pulse Ox 97% on R/A; Weight 106.59 kg; iw Height 5 ft. 11 in. (180.34 cm); Pain 0/10; 11:52 BP 167 / 106; Pulse 101; Resp 16; Pulse Ox 100% on R/A; iw 13:23 BP 186 / 93; Pulse 95; Resp 16; Pulse Ox 100% ; ls4 10:34 Body Mass Index 32.78 (106.59 kg, 180.34 cm) iw ED Course: 10:21 Patient arrived in ED. mr 10:25 Indra Brownlee MD is Attending Physician. ma2 10:32 Alexandrea Jerez, RN is Primary Nurse. iw 10:37 Triage completed. iw 10:37 Arm band placed on. iw 10:54 Initial lab(s) drawn, by me, sent to lab. Inserted saline lock: 20 gauge in left iw antecubital area, using aseptic technique. Blood collected. 10:58 Bladder scan completed. 138mL. dh3 12:00 Patient has correct armband on for positive identification. Placed in gown. Bed in low ls4 position. Call light in reach. Side rails up X 1. monitoring specialist on. Pulse ox on. NIBP on. 13:24 No provider procedures requiring assistance completed. ls4 Administered Medications: 11:49 Drug: NS 0.9% 1000 ml Route: IV; Rate: 1 bolus; Site: right antecubital; iw 12:38 Drug: Zofran (Ondansetron) 4 mg Route: IVP; Site: right antecubital; ls4 13:10 Follow up: Response: No adverse reaction ls4 12:42 Not Given (Patient Refused): morphine 4 mg IVP once; RASS on ADMIN: Combtv4, Very ls4 Agttd3, Agttd2, Rstlss1, AlertClm0, Drwsy-1, Lt Sdtn-2, Mod Sdtn-3, Dp Sdtn-4, UnArsble-5 12:45 CANCELLED (Duplicate Order): [place] 10 mg-325 mg 1 tabs PO once; RASS on ADMIN: Combtv4, ls4 Very Agttd3, Agttd2, Rstlss1, AlertClm0, Drwsy-1, Lt Sdtn-2, Mod Sdtn-3, Dp Sdtn-4, UnArsble-5 12:47 Not Given (Duplicate Order): [place] 5 mg-325 mg 2 tabs PO once; RASS on ADMIN: Combtv4, ls4 Very Agttd3, Agttd2, Rstlss1, AlertClm0, Drwsy-1, Lt Sdtn-2, Mod Sdtn-3, Dp Sdtn-4, UnArsble-5 12:48 Drug: [place] 10 mg-325 mg 1 tabs Route: PO; ls4 13:10 Follow up: Response: No adverse reaction; Pain is decreased ls4 16:10 Drug: Rocephin 1 grams Route: IV; Rate: calculated rate; Site: right antecubital; ls4 Outcome: 16:06 Discharge ordered by MD. ghosh 17:19 Patient left the ED. ls4 Signatures: Jerri Naidu Alexandrea Muñoz RN RN Zulma Torres 3 Indra Brownlee MD MD ma2 Stewart, Lisa, RN RN ls4 Corrections: (The following items were deleted from the chart) 10:58 10:57 Bladder scan completed. iw iw 12:42 12:38 morphine 4 mg IVP in right antecubital ls4 ls4
[2020-02-25] MEDS ORDERED: CEFTRIAXONE/SWI 1gm 1 GM/10 ML SYR ONE (16:28)
== END 2020-02-25 17:19 | disposition home or self-care (01) ==
LOC: ER 10:16
DX: N30.01 Acute cystitis with hematuria (principal); C64.9 Malignant neoplasm of unspecified kidney, except renal pelvis; I25.2 Old myocardial infarction; Z95.1 Presence of aortocoronary bypass graft; Z95.818 Presence of other cardiac implants and grafts; Z79.82 Long term (current) use of aspirin; Z88.0 Allergy status to penicillin
CPT/HCPCS: 87088; 85025; 36415; 85610; 80053; 96375; 96374; 99284; J0696; J7030; J2405; 81003; 81015; 87086

== ENCOUNTER 2020-08-16 12:06 | Observation (INO) | payer OTHER, BC ==
[2020-08-16] MEDS ORDERED: NA CHLORIDE 0.9% 1,000 ML ONE (15:25)
--- NOTE | 2020-08-16 15:31 | RAD REPORT ---
EXAM DESCRIPTION: RAD - Chest Single View - 08/16/2020 3:25 pm CLINICAL HISTORY: COUGH Chest pain. COMPARISON: Chest Abdomen Pelvis W Cont dated 05/30/2020 FINDINGS: Portable technique limits examination quality. Innumerable nodules are present throughout both lungs compatible with metastatic disease. The heart i s mildly prominent size. Sternotomy wires present.
[2020-08-16 15:41] LABS: Protime INR 1.45
[2020-08-16 16:00] LABS: Albumin 2.3 g/dL (3.4-5.0); Bilirubin Direct 1.1 mg/dL (0-0.2); Bilirubin Total 2.5 mg/dL (0.2-1.0); Magnesium 1.9 mg/dL (1.8-2.4); Potassium 3.6 mmol/L (3.5-5.1); Protein, Total 6.9 g/dL (6.4-8.2); Troponin (Emerg Dept Use Only) 0.04 ng/mL (0.0-0.045)
--- NOTE | 2020-08-16 16:27 | EDPHYS ---
Physician Documentation [facility] Name: Gavino Marin Age: 65 yrs Sex: Male : 1955 Arrival Date: 08/16/2020 Time: 12:13 Bed 16 Private MD: SONIYA Physician Fady Hodges HPI: 08/16 15:14 This 65 yrs old Male presents to ER via Ambulatory with complaints of jabier Diarrhea. 15:14 The patient presents to the emergency department with nausea, that is mild, diarrhea, jabier that is intermittent. Onset: The symptoms/episode began/occurred 5 day(s) ago. Possible causes: unknown. The symptoms are aggravated by nothing. The symptoms are alleviated by nothing. Associated signs and symptoms: Pertinent positives: diarrhea, nausea. Severity of symptoms: At their worst the symptoms were mild in the emergency department the symptoms are unchanged. The patient has not experienced similar symptoms in the past. Historical: - Allergies: 12:35 PENICILLINS; ll1 - Home Meds: 14:57 metoprolol succinate 50 mg oral Tb24 1 tab once daily [Active]; potassium chloride 20 tw2 mEq Oral TbER 1 tab once daily [Active]; lisinopril 5 mg Oral tab 1 tab once daily [Active]; atorvastatin 40 mg oral tab 1 tab once daily [Active]; furosemide 40 mg Oral tab 1 tab once daily [Active]; - PMHx: 12:35 kidney cancer; LYMPH EDEMA; lymphedema; Myocardial infarction; ll1 - PSHx: 12:35 CABG; Hernia repair; Heart stents; ll1 - Immunization history:: Flu vaccine is not up to date. - Social history:: Smoking status: Patient denies any tobacco usage or history of. - Family history:: not pertinent. ROS: 15:14 Constitutional: Negative for fever, chills, and weight loss, Eyes: Negative for injury, jabier pain, redness, and discharge, ENT: Negative for injury, pain, and discharge, Neck: Negative for injury, pain, and swelling, Cardiovascular: Negative for chest pain, palpitations, and edema, Respiratory: Negative for shortness of breath, cough, wheezing, and pleuritic chest pain, Abdomen/GI: Negative for abdominal pain, nausea, vomiting, diarrhea, and constipation, Back: Negative for injury and pain, : Negative for injury, bleeding, discharge, and swelling, Skin: Negative for injury, rash, and discoloration, Neuro: Negative for headache, weakness, numbness, tingling, and seizure, Psych: Negative for depression, anxiety, suicide ideation, homicidal ideation, and hallucinations, Allergy/Immunology: Negative for hives, rash, and allergies, Endocrine: Negative for neck swelling, polydipsia, polyuria, polyphagia, and marked weight changes, Hematologic/Lymphatic: Negative for swollen nodes, abnormal bleeding, and unusual bruising. 15:14 Skin: Positive for erythema, of the coccyx and gluteal cleft. Exam: 15:14 Constitutional: This is a well developed, well nourished patient who is awake, alert, jabier and in no acute distress. Head/Face: Normocephalic, atraumatic. Eyes: Pupils equal round and reactive to light, extra-ocular motions intact. Lids and lashes normal. Conjunctiva and sclera are non-icteric and not injected. Cornea within normal limits. Periorbital areas with no swelling, redness, or edema. ENT: Nares patent. No nasal discharge, no septal abnormalities noted. Tympanic membranes are normal and external auditory canals are clear. Oropharynx with no redness, swelling, or masses, exudates, or evidence of obstruction, uvula midline. Mucous membranes moist. Neck: Trachea midline, no thyromegaly or masses palpated, and no cervical lymphadenopathy. Supple, full range of motion without nuchal rigidity, or vertebral point tenderness. No Meningismus. Chest/axilla: Normal chest wall appearance and motion. Nontender with no deformity. No lesions are appreciated. Cardiovascular: Regular rate and rhythm with a normal S1 and S2. No gallops, murmurs, or rubs. Normal PMI, no JVD. No pulse deficits. Respiratory: Lungs have equal breath sounds bilaterally, clear to auscultation and percussion. No rales, rhonchi or wheezes noted. No increased work of breathing, no retractions or nasal flaring. Abdomen/GI: Soft, non-tender, with normal bowel sounds. No distension or tympany. No guarding or rebound. No evidence of tenderness throughout. Back: No spinal tenderness. No costovertebral tenderness. Full range of motion. Male : Normal genitalia with no discharge or lesions. MS/ Extremity: Pulses equal, no cyanosis. Neurovascular intact. Full, normal range of motion. Neuro: Awake and alert, GCS 15, oriented to person, place, time, and situation. Cranial nerves II-XII grossly intact. Motor strength 5/5 in all extremities. Sensory grossly intact. Cerebellar exam normal. Normal gait. Psych: Awake, alert, with orientation to person, place and time. Behavior, mood, and affect are within normal limits. 15:14 Skin: Appearance: Color: pale, Temperature: normal temperature, Moisture: normal moisture, abscess, not appreciated, cellulitis, is not appreciated, on the coccyx and gluteal cleft. 15:25 ECG was reviewed by the Attending Physician. [facility] Vital Signs: 12:33 BP 131 / 76; Pulse 85; Resp 17; Temp 98.2; Pulse Ox 100% ; Weight 88.9 kg; Height 5 ft. ll1 11 in. (180.34 cm); Pain 8/10; 16:00 BP 152 / 71; Pulse 85; Resp 22; Pulse Ox 99% on R/A; tw2 17:44 BP 154 / 77; Pulse 89; Resp 20; Pulse Ox 99% on R/A; tw2 18:46 BP 155 / 71; Pulse 74; Resp 16; Pulse Ox 98% on R/A; tw2 19:00 BP 152 / 76; Pulse 78; Resp 16; Pulse Ox 97% on R/A; jb4 12:33 Body Mass Index 27.34 (88.90 kg, 180.34 cm) ll1 MDM: 14:15 Patient medically screened. [facility] 15:17 Differential diagnosis: pancreatitis, viral gastroenteritis, gastroenteritis. Data [facility] reviewed: vital signs, nurses notes, lab test result(s), EKG, radiologic studies, plain films. Data interpreted: vehicle monitor technician: rate is 85 beats/min, rhythm is regular, Pulse oximetry: on room air is 100 %. Test interpretation: by ED physician or midlevel provider: ECG, plain radiologic studies. Counseling: I had a detailed discussion with the patient and/or guardian regarding: the historical points, exam findings, and any diagnostic results supporting the discharge/admit diagnosis, lab results, radiology results. 08/16 15:06 Order name: Basic Metabolic Panel [facility] 08/16 15:06 Order name: CBC with Diff [facility] 08/16 15:06 Order name: LFT's [facility] 08/16 15:06 Order name: Magnesium [facility] 08/16 15:06 Order name: NT PRO-BNP [facility] 08/16 15:06 Order name: PT-INR jabier 08/16 15:06 Order name: Troponin (emerg Dept Use Only); Complete Time: 16:18 [facility] 08/16 15:06 Order name: Lipase; Complete Time: 16:18 [facility] 08/16 15:06 Order name: Basic Metabolic Panel; Complete Time: 16:18 EDMS 08/16 15:06 Order name: CBC with Automated Diff [facility] 08/16 15:06 Order name: Liver (Hepatic) Function; Complete Time: 16:18 EDMS 08/16 15:06 Order name: Magnesium; Complete Time: 16:18 EDMS 08/16 15:06 Order name: NT PRO-BNP; Complete Time: 16:18 EDMS 08/16 15:06 Order name: XRAY Chest (1 view); Complete Time: 16:18 [facility] 08/16 15:06 Order name: EKG; Complete Time: 15:07 [facility] 08/16 15:06 Order name: Cardiac monitoring; Complete Time: 15:24 [facility] 08/16 15:06 Order name: EKG - Nurse/Tech; Complete Time: 15:24 [facility] 08/16 15:06 Order name: IV Saline Lock; Complete Time: 15:24 [facility] 08/16 15:06 Order name: Labs collected and sent; Complete Time: 15:24 [facility] 08/16 15:06 Order name: O2 Per Protocol; Complete Time: 15:07 [facility] 08/16 15:06 Order name: O2 Sat Monitoring; Complete Time: 15:07 [facility] 08/16 15:06 Order name: Protime (+INR); Complete Time: 16:18 EDMS 08/16 16:21 Order name: SARS-COV-2 RT PCR; Complete Time: 16:45 EDMS 08/16 17:08 Order name: Basic Metabolic Panel [facility] 08/16 17:08 Order name: Basic Metabolic Panel [facility] 08/16 17:09 Order name: Regular [facility] 08/16 21:59 Order name: CBC Smear Scan [facility] EC:25 Rate is 78 beats/min. Rhythm is regular. QRS [place] is Normal. [place] interval is normal. QRS jabier interval is normal. QT interval is normal. No Q waves. T waves are Normal. No ST changes noted. Clinical impression: NSR w/ Non-specific ST/T Changes, 1st degree heart block, and No evidence of ischemia. Interpreted by me. Reviewed by me. Administered Medications: 15:24 Drug: NS 0.9% 1000 ml Route: IV; Rate: 1 bolus; Site: right antecubital; tw2 17:20 Follow up: Response: No adverse reaction; IV Status: Completed infusion; IV Intake: tw2 1000ml Disposition: 08/16/20 16:26 Hospitalization ordered by James Simmons for Inpatient Admission. Preliminary diagnosis are Diarrhea, unspecified, Malignant neoplasm of right kidney, except renal pelvis, Weakness, Dehydration, Acute kidney failure - on chronic. - Bed requested for Telemetry/MedSurg (Inpatient). - Status is Inpatient Admission. bb - Condition is Fair. - Problem is new. - Symptoms are unchanged. Signatures: Dispatcher [employer] [facility]CO Fady Hodges MD MD cha Ballard, Brenda RN HALIMA bb Reny Vu RN RN Paloma Camargo RN RN 2 Elie Keys RN RN ll1 Corrections: (The following items were deleted from the chart) 15:36 15:06 CORONAVIRUS+MR.LAB.SUEZ ordered. [facility] 16:27 16:26 Hospitalization Ordered by for Inpatient Admission. Preliminary diagnosis is jabier Diarrhea, unspecified; Malignant neoplasm of right kidney, except renal pelvis; Weakness; Dehydration. Bed requested for Telemetry/MedSurg (Inpatient). Status is Inpatient Admission. Condition is Fair. Problem is new. Symptoms are unchanged. jabier 22:44 16:27 08/16/2020 16:26 Hospitalization Ordered by James Simmons MD for Inpatient cg Admission. Preliminary diagnosis is Diarrhea, unspecified; Malignant neoplasm of right kidney, except renal pelvis; Weakness; Dehydration; Acute kidney failure - on chronic. Bed requested for Telemetry/MedSurg (Inpatient). Status is Inpatient Admission. Condition is Fair. Problem is new. Symptoms are unchanged. jabier 23:04 22:44 08/16/2020 16:26 Hospitalization Ordered by James Simmons MD for Inpatient bb Admission. Preliminary diagnosis is Diarrhea, unspecified; Malignant neoplasm of right kidney, except renal pelvis; Weakness; Dehydration; Acute kidney failure - on chronic. Bed requested for Telemetry/MedSurg (Inpatient). Status is Inpatient Admission. Condition is Fair. Problem is new. Symptoms are unchanged. cg
--- NOTE | 2020-08-16 16:27 | ER ---
Nurse's Notes [facility] Name: Gavino Marin Age: 65 yrs Sex: Male : 1955 Arrival Date: 08/16/2020 Time: 12:13 Bed 16 Private MD: Diagnosis: Diarrhea, unspecified;Malignant neoplasm of right kidney, except renal pelvis;Weakness;Dehydration;Acute kidney failure-on chronic Presentation: 08/16 12:33 Chief complaint: Patient states: Diarrhea for 1 week. Not eating/drinking well. + ll1 weakness and fatigue. No fever. EMS:VSS 20 G R AC. Coronavirus screen: Client denies travel out of the [place] in the last 14 days. At this time, the client does not indicate any symptoms associated with coronavirus-19. Ebola Screen: Patient denies travel to an Ebola-affected area in the 21 days before illness onset. Initial Sepsis Screen: Does the patient meet any 2 criteria? No. Patient's initial sepsis screen is negative. Does the patient have a suspected source of infection? Yes: Other: diarrhea. Risk Assessment: Do you want to hurt yourself or someone else? Patient reports no desire to harm self or others. Onset of symptoms was August 09, 2020. 12:33 Method Of Arrival: Ambulatory ll1 12:33 Acuity: MAYKEL 3 ll1 Historical: - Allergies: 12:35 PENICILLINS; ll1 - Home Meds: 14:57 metoprolol succinate 50 mg oral Tb24 1 tab once daily [Active]; potassium chloride 20 tw2 mEq Oral TbER 1 tab once daily [Active]; lisinopril 5 mg Oral tab 1 tab once daily [Active]; atorvastatin 40 mg oral tab 1 tab once daily [Active]; furosemide 40 mg Oral tab 1 tab once daily [Active]; - PMHx: 12:35 kidney cancer; LYMPH EDEMA; lymphedema; Myocardial infarction; ll1 - PSHx: 12:35 CABG; Hernia repair; Heart stents; ll1 - Immunization history:: Flu vaccine is not up to date. - Social history:: Smoking status: Patient denies any tobacco usage or history of. - Family history:: not pertinent. Screenin:41 Abuse screen: Denies threats or abuse. Nutritional screening: No deficits noted. tw2 Tuberculosis screening: No symptoms or risk factors identified. Fall Risk Secondary diagnosis (15 points) impaired mobility. Assessment: 14:14 General: Appears in no apparent distress. Behavior is calm, cooperative, appropriate tw2 for age. Pain: Denies pain. Neuro: Level of Consciousness is awake, alert, obeys commands, Oriented to person, place, time, situation. Cardiovascular: Patient's skin is warm and dry. Cardiovascular: Edema is 2+ to left midcalf, left ankle, right midcalf and right ankle. Respiratory: Airway is patent Respiratory effort is even, unlabored, Respiratory pattern is regular, symmetrical. GI: Reports diarrhea, intolerance of fluids, intolerance of food, "i have kidney cancer but i am also swelling in my legs as well". : No signs and/or symptoms were reported regarding the genitourinary system. EENT: No signs and/or symptoms were reported regarding the EENT system. Derm: Skin is fragile, is thin, with poor turgor Skin is dry, Skin temperature is warm. Musculoskeletal: Range of motion: intact in all extremities. 14:39 Reassessment: daughter LAM ph#[phone]. tw2 15:02 Reassessment: spoke with pts daughter for medication list, pts daughter states "he is tw2 going to down play his health, he is having diarrhea that his bottom has a spot that is bleeding on it", provider notified. 16:01 Reassessment: Patient appears in no apparent distress at this time. No changes from tw2 previously documented assessment. Patient and/or family updated on plan of care and expected duration. Pain level reassessed. Patient is alert, oriented x 3, equal unlabored respirations, skin warm/dry/pink. 17:44 Reassessment: pt moved to hospital bed at this time and given dietary try, pt pleased tw2 with soft bed at this time. Reassessment: Patient appears in no apparent distress at this time. No changes from previously documented assessment. Patient and/or family updated on plan of care and expected duration. Pain level reassessed. Patient is alert, oriented x 3, equal unlabored respirations, skin warm/dry/pink. 18:46 Reassessment: Patient appears in no apparent distress at this time. No changes from tw2 previously documented assessment. Patient and/or family updated on plan of care and expected duration. Pain level reassessed. Patient is alert, oriented x 3, equal unlabored respirations, skin warm/dry/pink. 19:24 Reassessment: Pt is resting in bed with eye closed, no s/s of pain or distress noted. jb4 Respirations are even and unlabored. Vital Signs: 12:33 BP 131 / 76; Pulse 85; Resp 17; Temp 98.2; Pulse Ox 100% ; Weight 88.9 kg; Height 5 ft. ll1 11 in. (180.34 cm); Pain 8/10; 16:00 BP 152 / 71; Pulse 85; Resp 22; Pulse Ox 99% on R/A; tw2 17:44 BP 154 / 77; Pulse 89; Resp 20; Pulse Ox 99% on R/A; tw2 18:46 BP 155 / 71; Pulse 74; Resp 16; Pulse Ox 98% on R/A; tw2 19:00 BP 152 / 76; Pulse 78; Resp 16; Pulse Ox 97% on R/A; jb4 12:33 Body Mass Index 27.34 (88.90 kg, 180.34 cm) ll1 ED Course: 12:13 Patient arrived in ED. ds1 12:34 Triage completed. ll1 12:35 Arm band placed on. ll1 14:14 Bed in low position. Call light in reach. Pulse ox on. NIBP on. Warm blanket given. tw2 14:15 Fady Hodges MD is Attending Physician. jabier 14:39 Paloma Camargo RN is Primary Nurse. tw2 15:24 XRAY Chest (1 view) In Process Unspecified. EDMS 15:24 tile presser on. jp3 15:24 EKG done, by ED staff, reviewed by Fady Hodges MD. Patient maintains SpO2 saturation jp3 greater than 95% on room air. 15:24 Maintain EMS IV. Dressing intact. Good blood return noted. Site clean \\T\\ dry. Gauge \\T\\ tw 2 site: 20 g. 15:25 COVID swab sent to lab. jp3 16:27 James Simmons MD is Hospitalizing Provider. jabier 19:05 Report given to HALIMA Bonilla. tw2 Administered Medications: 15:24 Drug: NS 0.9% 1000 ml Route: IV; Rate: 1 bolus; Site: right antecubital; tw2 17:20 Follow up: Response: No adverse reaction; IV Status: Completed infusion; IV Intake: tw2 1000ml Intake: 17:20 IV: 1000ml; Total: 1000ml. tw2 Outcome: 16:26 Decision to Hospitalize by Provider. jabier 23:04 Patient left the ED. bb Signatures: Dispatcher [employer] Fady Johnson MD MD cha Sanford, Demi ds1 Sophy Garcia RN RN bb Paloma Camargo RN RN tw2 Everardo Diallo RN RN jb4 Charlie Gilbert 3 Elie Keys RN RN ll1
[2020-08-16 16:34] LABS: Absolute Lymphocytes (CBC) 0.5 K/uL (0.7-4.9); Basophils % 0.6 % (0-1.3); Hematocrit 49.7 % (39.6-49.0); Lymphocytes % 8.3 % (15.3-44.8); RBC Red Blood Cell Count 7.36 M/uL (4.33-5.43)
[2020-08-16 16:35] LABS: MPV 8.7 fL (7.6-11.3)
[2020-08-16] MEDS ORDERED: ONDANSETRON 4 MG/2 ML VIAL IV PRN (17:05)
[2020-08-16] MEDS ORDERED: ACETAMINOPHEN 500 MG TAB PO PRN (17:05)
[2020-08-16] MEDS ORDERED: POLYETHYL GLY 3350 17 GM/DOSE PO PRN (17:08)
[2020-08-16] MEDS ORDERED: BISACODYL 10 MG RECTAL SUPP RC PRN (17:08)
--- NOTE | 2020-08-16 17:13 | P.HP ---
Certification for Inpatient Patient admitted to: Observation With expected LOS: <2 Midnights Practitioner: I am a practitioner with admitting privileges, knowledge of patient current condition, hospital course, and medical plan of care. Services: Services provided to patient in accordance with Admission requirements found in Title 42 Section 412.3 of the Code of Federal Regulations Patient History Date of Service: 08/16/20 History of Present Illness: 65 y o male pt with hx of renal cell carcinoma for which he is getting chemotherapy, hypertension, DM type 2, hyperlipidemia who was evaluated in the E d for episode of profuse diarrhea for a few days. he became weak and extremely lethargic so he was brought to the ED. initial labs and imaging were not overtly concerning but he did have tachycardia and hypotensive episode raising concerns for hypovolemia so he was asked to be admitted on observation. He was started on IV fluid for repletion of lost volume. He denied any fever, chills, rigor, n/v episode. no cough or sob reported. he feels raw on his anal region due to consistent diarrhea episode. Allergies Penicillins Allergy (Verified 12/19/19 16:05) Rash Home Medications: Acetaminophen [Tylenol -Tablet] 650 mg PO Q4HP PRN 12/20/19 Aspirin Chewable [Aspirin Chewable*] 81 mg PO DAILY 12/20/19 Atorvastatin Calcium [Lipitor] 40 mg PO BEDTIME 12/20/19 Bisacodyl [Dulcolax] 10 mg RC DAILY PRN 12/20/19 Clonidine HCl [Clonidine HCl ER] 0.1 mg PO Q6HP PRN 12/20/19 Docusate [Colace Cap*] 100 mg PO BID 12/20/19 Ergocalciferol (Vitamin D2) [Vitamin D 50,000 Unit Cap] 50,000 unit PO EVERY 7TH DAY 12/20/19 Ferrous Sulfate [Feosol] 325 mg PO BID 12/20/19 Furosemide [Lasix] 40 mg PO DAILY 12/20/19 Glipizide [Glipizide ER] 10 mg PO DAILY 12/20/19 Hydrocodone Bit/Acetaminophen [Hydrocodon-Acetaminophn 10-325] 1 each PO Q4HP PRN 12/20/19 Lactobacillus Acidophilus [Acidophilus Lactobacilli] 1 each PO DAILY 12/20/19 Lisinopril [Zestril] 5 mg PO DAILY 12/20/19 Magnesium Oxide [Mag 0X Tab] 400 mg PO BID 12/20/19 Metoprolol Succinate [Toprol Xl] 50 mg PO BID 12/20/19 Polyethyl Gly 3350 [Glycolax] 17 gm PO BID PRN 12/20/19 Pregabalin [Lyrica] 75 mg PO TID 12/20/19 Sennosides [Senna] 8.6 mg PO BID PRN 12/20/19 Tramadol HCl [Ultram] 50 mg PO Q8HP 12/20/19 - Past Medical/Surgical History Diabetic: Yes -: CHF -: DM -: Kidney CA -untreated -: Lymphedema -: HTN -: Hyperlipidemia -: CAD -: Anemia -: CABG - Social History Alcohol use: Yes Review of Systems General: Weakness, Malaise Eyes: Unremarkable ENT: Unremarkable Respiratory: Unremarkable Cardiovascular: Unremarkable Gastrointestinal: Diarrhea, Other (anal region discomfort.), Unremarkable Genitourinary: Unremarkable Musculoskeletal: Pedal edema Neurological: Weakness Physical Examination - Physical Exam General: Alert, Oriented x3, Cooperative, Cachectic HEENT: Atraumatic, Normocephalic Neck: Supple Respiratory: Clear to auscultation bilaterally Cardiovascular: Regular rate/rhythm, Normal S1 S2, Edema Gastrointestinal: Soft and benign Neurological: Normal speech, Cranial nerves 3-12 intact - Studies Laboratory Data (last 24 hrs) 08/16/20 15:17: PT 16.7 H, INR 1.45 08/16/20 15:17: WBC 6.00, Hgb 15.1, Hct 49.7 H, Plt Count 122 L 08/16/20 15:17: Sodium 142, Potassium 3.6, BUN 20 H, Creatinine 1.38 H, Glucose 86, Magnesium 1.9, Total Bilirubin 2.5 H, AST 18, ALT 12, Alkaline Phosphatase 141 H, Lipase 88 Assessment and Plan - Plan 1.Diarrhea: Deemed due to possibly side effect of chemotherapy but he will need work up. we will start IV fluid for rehydration. we will obtain urine studies. he is also on iron pills and this can be a confounder. we will observe. 2.Hypertension: BP reads are concerning for now. we will hold all BP meds and monitor,. 3.Diabetes type 2: we will have on SSI and carb restricted diet. 4.Hyperlipidemia: we will continue statin therapy. 5.Hx of renal cell carcinoma: management as per oncology. Discharge Plan: Home - Advance Directives Does patient have a Living Will: No Does patient have a Durable POA for Healthcare: No
[2020-08-16] MEDS: NA CHLORIDE 0.9% 1,000 ML IV SCH ×2 (18:00→23:13)
[2020-08-16] MEDS: ATORVASTATIN 40 MG TAB PO SCH ×2 (21:00→23:32)
[2020-08-16] MEDS: METOPROLOL XL 50 MG TAB PO SCH ×2 (21:00→23:32)
[2020-08-16] MEDS: PREGABALIN 75 MG CAP PO SCH (21:00)
[2020-08-16] MEDS: DOCUSATE NA 100 MG CAP PO SCH (21:00)
[2020-08-16] MEDS: MAGNESIUM OXIDE 400 MG TAB PO SCH (21:00)
[2020-08-16] MEDS: FERROUS SULFATE 325 MG TAB PO SCH (21:00)
[2020-08-16 21:58] LABS: Agglutinates, Cold (RBC Morph) NOTED; Anisocytosis 3+; Blood Morphology Comment NOTED (NOT SEEN); Hypochromasia 1+; Platelet Estimate DECR; White Blood Cell Scan OK (OK)
[2020-08-17 01:23] VITALS: BMI 27.3
[2020-08-17] MEDS: NA CHLORIDE 0.9% 1,000 ML IV SCH ×2 (03:36→14:00)
[2020-08-17 06:53] LABS: Potassium 2.9 mmol/L (3.5-5.1)
[2020-08-17] MEDS: INFLUENZA VACCINE (for 3y+) 0.5 ML DOSE IMVAC ONE ×2 (08:00→21:03)
--- NOTE | 2020-08-17 08:23 | P.PN ---
Subjective Date of Service: 08/17/20 Subjective: No new changes, Improving Physical Examination - Vital Signs Temperature: 97.6 F Blood Pressure: 172/79 Pulse: 80 Respirations: 20 Pulse Ox (%): 96 - Physical Exam General: Alert, Oriented x3, Cooperative HEENT: Atraumatic, Normocephalic Respiratory: Clear to auscultation bilaterally Cardiovascular: Edema Gastrointestinal: Soft and benign Neurological: Normal speech, Cranial nerves 3-12 intact - Studies Laboratory Data (last 24 hrs) 08/16/20 15:17: PT 16.7 H, INR 1.45 08/16/20 15:17: WBC 6.00, Hgb 15.1, Hct 49.7 H, Plt Count 122 L 08/16/20 15:17: Sodium 142, Potassium 3.6, BUN 20 H, Creatinine 1.38 H, Glucose 86, Magnesium 1.9, Total Bilirubin 2.5 H, AST 18, ALT 12, Alkaline Phosphatase 141 H, Lipase 88 Assessment And Plan - Plan 1.Diarrhea: Improving frequency of diarrhea. Deemed due to possibly side effect of chemotherapy but he will need work up. we will continue IV fluid for rehydration. we will obtain urine studies. he is also on iron pills and this can be a confounder. we will observe. 2.Hypertension: BP reads are concerning for now. we will hold all BP meds and monitor,. 3.Diabetes type 2: we will have on SSI and carb restricted diet. 4.Hyperlipidemia: we will continue statin therapy. 5.Hx of renal cell carcinoma: management as per oncology. Disposition: expected to be discharged in the next 24hrs.
[2020-08-17] MEDS ORDERED: LACTOBACILLUS/ACIDOPHILUS TAB PO SCH (09:00)
[2020-08-17] MEDS: MAGNESIUM OXIDE 400 MG TAB PO SCH ×2 (09:00→20:04)
[2020-08-17] MEDS ORDERED: POTASSIUM CL SA 10 MEQ TAB PO ONE ×2 (09:00→16:00)
[2020-08-17] MEDS: DOCUSATE NA 100 MG CAP PO SCH ×2 (09:00→20:04)
[2020-08-17] MEDS: FERROUS SULFATE 325 MG TAB PO SCH ×2 (09:00→20:04)
[2020-08-17] MEDS: ENOXAPARIN 40 MG/0.4 ML SQ SCH (09:00)
[2020-08-17] MEDS: PREGABALIN 75 MG CAP PO SCH ×3 (09:00→20:04)
[2020-08-17] MEDS: ASPIRIN 81 MG CHEWABLE TABLET PO SCH (10:23)
[2020-08-17] MEDS: METOPROLOL XL 50 MG TAB PO SCH ×2 (10:24→20:52)
[2020-08-17] MEDS: HYDROCODONE/APAP 10/325 TAB PO PRN (17:06)
[2020-08-17] MEDS: ATORVASTATIN 40 MG TAB PO SCH (20:52)
[2020-08-17] MEDS ORDERED: DIPHENOX/ATROP SULF 1 TAB PO ONE (20:55)
[2020-08-17] MEDS ORDERED: INFLUENZA VACCINE (for 3y+) 0.5 ML DOSE IMVAC ONE (21:20)
[2020-08-18 07:10] LABS: Potassium 3.4 mmol/L (3.5-5.1)
[2020-08-18] MEDS: ENOXAPARIN 40 MG/0.4 ML SQ SCH (08:25)
--- NOTE | 2020-08-18 08:25 | P.PN ---
Subjective Date of Service: 08/18/20 Primary Care Provider: No PCP; Oncology-Dr. Zhong Subjective: Improving, Doing well (Patient ambulating. Room-air saturations normal. No more diarrhea noted.) Physical Examination - Vital Signs Temperature: 97.6 F Blood Pressure: 118/58 Pulse: 68 Respirations: 18 Pulse Ox (%): 95 Assessment & Plan Discharge Plan: Other (Home verses inpatient rehab) Plan to discharge in: 24 Hours Physician Review Additional Text: Physical exam: Patient alert, cooperative. No significant distress noted. No more diarrhea noted Heart: Regular rate Lungs: Clear Abdomen: Soft nontender nondistended Extremities: Chronic lymphedema to the lower extremities in with purpura Impression: Diarrhea likely from immunotherapy for renal cell carcinoma Acute renal injury with mild dehydration Hypertension Hyperlipidemia CAD with prior CABG Chronic lymphedema to the lower extremities Peripheral neuropathy Hyperlipidemia Plan: Diarrhea likely from immunotherapy for renal cell carcinoma: Diarrhea resolved. Will increase lactobacillus to twice daily. Spoke with oncology. Oncology suspects diarrhea likely related from immunotherapy. Will provide medication as needed for diarrhea. Not able to do C diff toxin due to patient receiving medication and no more diarrhea noted. Will send lab for stool culture. Family is planning for patient to go to an assisted living facility. Inpatient rehab consult in place. Case discussed with social security assessor. commissioner of relocation services will discuss with inpatient rehab to see if this is an option. This may not be an option as the patient will be on immunotherapy. Due to the cost of the immunotherapy, inpatient rehab will likely be decline. Will get confirmation. If patient does not qualify for inpatient rehab then will pursue home with home health and physical therapy until family is able to transition the patient to assist living facility. Acute renal injury with mild dehydration: Encourage oral intake. This has resolved. Hypertension: Continue lisinopril and metoprolol. Parameters in place. CAD with prior CABG: DVT prophylaxis in place. Chronic lymphedema to the lower extremities: Continue with Lasix. Elevate legs when lying or sitting. Peripheral neuropathy: Continue Lyrica Hyperlipidemia: Continue Lipitor Time Spent Managing Pts Care (In Minutes): 55
[2020-08-18] MEDS: ASPIRIN 81 MG CHEWABLE TABLET PO SCH (08:26)
[2020-08-18] MEDS: LACTOBACILLUS/ACIDOPHILUS TAB PO SCH ×2 (08:26→21:50)
[2020-08-18] MEDS: FERROUS SULFATE 325 MG TAB PO SCH (08:26)
[2020-08-18] MEDS: METOPROLOL XL 50 MG TAB PO SCH ×2 (08:27→21:50)
[2020-08-18] MEDS: PREGABALIN 75 MG CAP PO SCH ×3 (08:31→21:00)
[2020-08-18] MEDS: MAGNESIUM OXIDE 400 MG TAB PO SCH ×2 (08:32→21:00)
[2020-08-18] MEDS: DOCUSATE NA 100 MG CAP PO SCH ×2 (08:40→21:00)
[2020-08-18] MEDS: lisinopriL 5 MG TAB PO SCH (08:44)
[2020-08-18] MEDS: FUROSEMIDE 20 MG TABLET PO SCH (08:45)
[2020-08-18] MEDS ORDERED: POTASSIUM 25 MEQ EFFERV TAB PO ONE (09:00)
[2020-08-18] MEDS ORDERED: GLUCERNA SHAKE 237 ML CAN PO SCH (09:00)
[2020-08-18] MEDS: HYDROCODONE/APAP 10/325 TAB PO PRN (09:57)
--- NOTE | 2020-08-18 11:20 | P.DS ---
Admission Date: 08/16/20 Discharge Date: 08/18/20 Primary Care Provider: No PCP; Oncology-Dr. Zhong Disposition: ROUTINE DISCHARGE Discharge Condition: GOOD Reason for Admission: weakness, diarrhea Consultations: none Procedures: COVID: Negative CXR: Unremarkable Medical Problem List: Diarrhea likely from immunotherapy for renal cell carcinoma Acute renal injury with mild dehydration Hypertension Hyperlipidemia CAD with prior CABG Chronic lymphedema to the lower extremities Hyperlipidemia Brief History of Present Illness: 65-year-old male presented to the emergency room with increasing diarrhea, weakness. Patient is had diarrhea for multiple weeks. His been getting worse lately. Patient has renal cell carcinoma and is getting immunotherapy. Patient was evaluated the emergency room. Patient appeared dehydrated. Patient admitted for further evaluation and treatment. Hospital Course: Patient presented with diarrhea, weakness. Patient had acute renal injury with dehydration. Diarrhea likely from immunotherapy that he gets for renal cell carcinoma. Patient is not a candidate for surgery due to his chronic conditions. Patient is seen by Oncology locally. Patient was admitted Overnite . Patient improved with IV fluid hydration. Stool cultures obtained. Prior to discharge arrangement for inpatient rehab was made with the help of manager social work. This will occur Thursday after he gets his outpatient CT scan from oncology. Patient will be discharged home today. Patient will continue with lactobacillus 3 times a day. Patient may continue with Imodium every 4-6 hr as needed for diarrhea. Encourage oral intake. Patient will follow up with oncology for outpatient CT scan on Thursday then patient will proceed to inpatient rehab to continue rehabilitation. Then the patient can be transition from rehab to assisted living facility. This was discussed in detail with patient and daughter in detail. Patient with hypertension. Blood pressure stable. Lisinopril 5 mg daily and metoprolol 50 mg 1 pill twice daily will be continued. Recommend to maintain blood pressure less than 130/80. Recommend to hold blood pressure medication if blood pressure systolic less than 110. Further adjustment in medication can be done by his PCP. Patient with CAD with prior CABG. Patient also with chronic lymphedema to the lower extremities. At discharge patient will continue with aspirin 81 mg daily, Lasix 40 mg daily, and potassium supplementation daily. Recommend to elevate his legs when sitting or lying. Patient will continue with physical therapy- inpatient rehab on Thursday. Patient with hyperlipidemia. At discharge patient will continue with Lipitor 40 mg daily. Vital Signs/Physical Exam: Temp Pulse Resp BP Pulse Ox 97.6 F 10 L 18 118/58 L 95 08/18/20 08:27 08/18/20 08:44 08/18/20 08:27 08/18/20 08:27 08/18/20 08:27 General: Alert, In no apparent distress, Oriented x3, Cooperative HEENT: Atraumatic Neck: Supple Respiratory: Clear to auscultation bilaterally, Normal air movement Cardiovascular: Normal pulses, Regular rate/rhythm Gastrointestinal: Normal bowel sounds Neurological: Other (Chronic lymphedema to the lower extremities) Laboratory Data at Discharge: WBC 6.00 K/uL (4.3-10.9) 08/16/20 15:17 Hgb 15.1 g/dL (13.6-17.9) 08/16/20 15:17 Hct 49.7 % (39.6-49.0) H 08/16/20 15:17 Plt Count 122 K/uL (152-406) L 08/16/20 15:17 PT 16.7 SECONDS (9.5-12.5) H 08/16/20 15:17 INR 1.45 08/16/20 15:17 Sodium 140 mmol/L (136-145) 08/18/20 06:17 Potassium 3.4 mmol/L (3.5-5.1) L 08/18/20 06:17 BUN 17 mg/dL (7-18) 08/18/20 06:17 Creatinine 0.99 mg/dL (0.55-1.3) 08/18/20 06:17 Glucose 72 mg/dL (74-106) L 08/18/20 06:17 Magnesium 1.9 mg/dL (1.8-2.4) 08/16/20 15:17 Total Bilirubin 2.5 mg/dL (0.2-1.0) H 08/16/20 15:17 AST 18 U/L (15-37) 08/16/20 15:17 ALT 12 U/L (12-78) 08/16/20 15:17 Alkaline Phosphatase 141 U/L (45-117) H 08/16/20 15:17 Lipase 88 U/L (73-393) 08/16/20 15:17 Home Medications: Atorvastatin Calcium [Lipitor] 40 mg PO DAILY 08/16/20 Lisinopril [Zestril] 5 mg PO DAILY 08/16/20 Metoprolol Tartrate [Lopressor*] 50 mg PO BID 08/16/20 Potassium Chloride [Klor-Con 10] 20 meq PO DAILY 08/16/20 Aspirin [Aspirin EC 81 MG] 81 mg PO DAILY #90 tablet. 08/18/20 Furosemide [Lasix] 40 mg PO DAILY #30 tab 08/18/20 Lactobacillus Acidophilus [Acidophilus Lactobacilli] 1 each PO TID #90 capsule 08/18/20 Loperamide [Imodium] 2 mg PO Q4HP PRN #30 cap 08/18/20 New Medications: Lactobacillus Acidophilus [Acidophilus Lactobacilli] 1 each PO TID #90 capsule Aspirin [Aspirin EC 81 MG] 81 mg PO DAILY #90 tablet. Loperamide [Imodium] 2 mg PO Q4HP PRN #30 cap PRN Reason: Diarrhea Furosemide [Lasix] 40 mg PO DAILY #30 tab Physician Discharge Instructions: Patient presented with diarrhea, weakness. Patient had acute renal injury with dehydration. Diarrhea likely from immunotherapy that he gets for renal cell carcinoma. Patient is not a candidate for surgery due to his chronic conditions. Patient is seen by Oncology locally. Patient was admitted Overnite. Patient improved with IV fluid hydration. Stool cultures obtained. Prior to discharge arrangement for inpatient rehab was made with the help of manager social work. This will occur Thursday after he gets his outpatient CT scan from oncology. Patient will be discharged home today. Patient will continue with lactobacillus 3 times a day. Patient may continue with Imodium every 4-6 hr as needed for diarrhea. Encourage oral intake. Patient will follow up with oncology for outpatient CT scan on Thursday then patient will proceed to inpatient rehab to continue rehabilitation. Then the patient can be transition from rehab to assisted living facility. This was discussed in detail with patient and daughter in detail. Patient with hypertension. Blood pressure stable. Lisinopril 5 mg daily and metoprolol 50 mg 1 pill twice daily will be continued. Recommend to maintain blood pressure less than 130/80. Recommend to hold blood pressure medication if blood pressure systolic less than 110. Further adjustment in medication can be done by his PCP. Patient with CAD with prior CABG. Patient also with chronic lymphedema to the lower extremities. At discharge patient will continue with aspirin 81 mg daily, Lasix 40 mg daily, and potassium supplementation daily. Recommend to elevate his legs when sitting or lying. Patient will continue with physical therapy- inpatient rehab on Thursday. Patient with hyperlipidemia. At discharge patient will continue with Lipitor 40 mg daily. Diet: AHA Activity: Fall precautions Followup: JELANI PALOMARES [Primary Care Provider] - Time spent managing pt's care (in minutes): 55
[2020-08-18] MEDS: ATORVASTATIN 40 MG TAB PO SCH ×2 (21:00→21:50)
[2020-08-18] MEDS: ENSURE CLEAR 200 ML CAN PO SCH (21:00)
[2020-08-19 06:15] LABS: BUN Blood Urea Nitrogen 18 mg/dL (7-18); Bicarbonate 25 mmol/L (21-32); Glucose Level 87 mg/dL (74-106); Sodium Level 141 mmol/L (136-145)
--- NOTE | 2020-08-19 07:13 | P.DS ---
Admission Date: 08/16/20 Discharge Date: 08/19/20 Primary Care Provider: No PCP; Oncology-Dr. Zhong Disposition: ROUTINE DISCHARGE Discharge Condition: GOOD Reason for Admission: weakness, diarrhea Consultations: none Procedures: COVID: Negative CXR: Unremarkable Medical Problem List: Diarrhea likely from immunotherapy for renal cell carcinoma Acute renal injury with mild dehydration Hypertension Hyperlipidemia CAD with prior CABG Chronic lymphedema to the lower extremities Hyperlipidemia Brief History of Present Illness: 65-year-old male presented to the emergency room with increasing diarrhea, weakness. Patient is had diarrhea for multiple weeks. His been getting worse lately. Patient has renal cell carcinoma and is getting immunotherapy. Patient was evaluated the emergency room. Patient appeared dehydrated. Patient admitted for further evaluation and treatment. Hospital Course: Patient presented with diarrhea, weakness. Patient had acute renal injury with dehydration. Diarrhea likely from immunotherapy that he gets for renal cell carcinoma. Patient is not a candidate for surgery due to his chronic conditions. Patient is seen by Oncology locally. Patient was admitted Overnite . Patient improved with IV fluid hydration. Stool cultures obtained. C Diff pending at discharge. Prior to discharge arrangement for inpatient rehab was made with the help of psychosocial rehabilitation counselor. This will occur Thursday after he gets his outpatient CT scan from oncology. Patient will be discharged home today. Patient will continue with lactobacillus 3 times a day. Patient may continue with Imodium every 4-6 hr as needed for diarrhea. Encourage oral intake. Patient will follow up with oncology for outpatient CT scan on Thursday then patient will proceed to inpatient rehab to continue rehabilitation. Then the patient can be transition from rehab to assisted living facility. This was discussed in detail with patient and daughter in detail. Discharge was held one day due to family repairing water break at home. Patient with hypertension. Blood pressure stable. Lisinopril 5 mg daily and metoprolol 50 mg 1 pill twice daily will be continued. Recommend to maintain blood pressure less than 130/80. Recommend to hold blood pressure medication if blood pressure systolic less than 110. Further adjustment in medication can be done by his PCP. Patient with CAD with prior CABG. Patient also with chronic lymphedema to the lower extremities. At discharge patient will continue with aspirin 81 mg daily, Lasix 40 mg daily, and potassium supplementation daily. Recommend to elevate his legs when sitting or lying. Patient will continue with physical therapy- inpatient rehab on Thursday. Patient with hyperlipidemia. At discharge patient will continue with Lipitor 40 mg daily. Vital Signs/Physical Exam: Temp Pulse Resp BP Pulse Ox 98.3 F 69 18 138/69 96 08/19/20 04:00 08/19/20 04:00 08/19/20 04:00 08/19/20 04:00 08/19/20 04:00 General: Alert, In no apparent distress, Oriented x3, Cooperative HEENT: Atraumatic Neck: Supple Respiratory: Clear to auscultation bilaterally, Normal air movement Cardiovascular: Normal pulses, Regular rate/rhythm Gastrointestinal: No guarding Integumentary: Other (Chronic lymphedema noted to the lower ext.) Neurological: Normal speech, Normal strength at 5/5 x4 extr, Normal tone, Normal affect Laboratory Data at Discharge: WBC 6.00 K/uL (4.3-10.9) 08/16/20 15:17 Hgb 15.1 g/dL (13.6-17.9) 08/16/20 15:17 Hct 49.7 % (39.6-49.0) H 08/16/20 15:17 Plt Count 122 K/uL (152-406) L 08/16/20 15:17 PT 16.7 SECONDS (9.5-12.5) H 08/16/20 15:17 INR 1.45 08/16/20 15:17 Sodium 141 mmol/L (136-145) 08/19/20 05:18 Potassium 4.0 mmol/L (3.5-5.1) 08/19/20 05:18 BUN 18 mg/dL (7-18) 08/19/20 05:18 Creatinine 0.84 mg/dL (0.55-1.3) 08/19/20 05:18 Glucose 87 mg/dL (74-106) 08/19/20 05:18 Magnesium 1.9 mg/dL (1.8-2.4) 08/16/20 15:17 Total Bilirubin 2.5 mg/dL (0.2-1.0) H 08/16/20 15:17 AST 18 U/L (15-37) 08/16/20 15:17 ALT 12 U/L (12-78) 08/16/20 15:17 Alkaline Phosphatase 141 U/L (45-117) H 02/18/21 15:17 Lipase 88 U/L (73-393) 08/16/20 15:17 Home Medications: Atorvastatin Calcium [Lipitor] 40 mg PO DAILY 08/16/20 Lisinopril [Zestril] 5 mg PO DAILY 08/16/20 Metoprolol Tartrate [Lopressor*] 50 mg PO BID 08/16/20 Potassium Chloride [Klor-Con 10] 20 meq PO DAILY 08/16/20 Aspirin [Aspirin EC 81 MG] 81 mg PO DAILY #90 tablet. 08/18/20 Furosemide [Lasix] 40 mg PO DAILY #30 tab 08/18/20 Lactobacillus Acidophilus [Acidophilus Lactobacilli] 1 each PO TID #90 capsule 08/18/20 Loperamide [Imodium] 2 mg PO Q4HP PRN #30 cap 08/18/20 New Medications: Lactobacillus Acidophilus [Acidophilus Lactobacilli] 1 each PO TID #90 capsule Aspirin [Aspirin EC 81 MG] 81 mg PO DAILY #90 tablet. Loperamide [Imodium] 2 mg PO Q4HP PRN #30 cap PRN Reason: Diarrhea Furosemide [Lasix] 40 mg PO DAILY #30 tab Physician Discharge Instructions: Patient presented with diarrhea, weakness. Patient had acute renal injury with dehydration. Diarrhea likely from immunotherapy that he gets for renal cell carcinoma. Patient is not a candidate for surgery due to his chronic conditions. Patient is seen by Oncology locally. Patient was admitted Overnite. Patient improved with IV fluid hydration. Stool cultures obtained. Prior to discharge arrangement for inpatient rehab was made with the help of psychosocial rehabilitation counselor. This will occur Thursday after he gets his outpatient CT scan from oncology. Patient will be discharged home today. Patient will continue with lactobacillus 3 times a day. Patient may continue with Imodium every 4-6 hr as needed for diarrhea. Encourage oral intake. Patient will follow up with oncology for outpatient CT scan on Thursday then patient will proceed to inpatient rehab to continue rehabilitation. Then the patient can be transition from rehab to assisted living facility. This was discussed in detail with patient and daughter in detail. Patient with hypertension. Blood pressure stable. Lisinopril 5 mg daily and metoprolol 50 mg 1 pill twice daily will be continued. Recommend to maintain blood pressure less than 130/80. Recommend to hold blood pressure medication if blood pressure systolic less than 110. Further adjustment in medication can be done by his PCP. Patient with CAD with prior CABG. Patient also with chronic lymphedema to the lower extremities. At discharge patient will continue with aspirin 81 mg daily, Lasix 40 mg daily, and potassium supplementation daily. Recommend to elevate his legs when sitting or lying. Patient will continue with physical therapy- inpatient rehab on Thursday. Patient with hyperlipidemia. At discharge patient will continue with Lipitor 40 mg daily. Diet: AHA Activity: Fall precautions Followup: JELANI PALOMARES [Primary Care Provider] - Time spent managing pt's care (in minutes): 55
[2020-08-19] MEDS: ENSURE CLEAR 200 ML CAN PO SCH (09:00)
[2020-08-19] MEDS: DOCUSATE NA 100 MG CAP PO SCH (09:00)
[2020-08-19] MEDS: MAGNESIUM OXIDE 400 MG TAB PO SCH (09:00)
[2020-08-19] MEDS: ENOXAPARIN 40 MG/0.4 ML SQ SCH (09:00)
[2020-08-19] MEDS: PREGABALIN 75 MG CAP PO SCH (09:00)
[2020-08-19] MEDS: LACTOBACILLUS/ACIDOPHILUS TAB PO SCH (09:37)
[2020-08-19] MEDS: ASPIRIN 81 MG CHEWABLE TABLET PO SCH (09:37)
[2020-08-19] MEDS: lisinopriL 5 MG TAB PO SCH (09:38)
[2020-08-19] MEDS: METOPROLOL XL 50 MG TAB PO SCH (09:38)
[2020-08-19] MEDS: FUROSEMIDE 20 MG TABLET PO SCH (09:39)
[2020-08-19 09:40] VITALS: BP 129/66
[2020-08-19 09:46] VITALS: TEMP 97; O2SAT 98
== END 2020-08-19 11:05 | disposition home or self-care (01) ==
LOC: ER 12:06 → ERHOLD 17:38 → 2ND 22:52
PROVIDERS: ADMIT Internal Medicine Nephrology; ATTEND Family Medicine
DX: R19.7 Diarrhea, unspecified (principal); N17.9 Acute kidney failure, unspecified; E86.0 Dehydration; C64.1 Malignant neoplasm of right kidney, except renal pelvis; I11.0 Hypertensive heart disease with heart failure; I50.9 Heart failure, unspecified; E78.5 Hyperlipidemia, unspecified; E11.9 Type 2 diabetes mellitus without complications; I89.0 Lymphedema, not elsewhere classified; R53.1 Weakness; I25.10 Atherosclerotic heart disease of native coronary artery without angina pectoris; G62.9 Polyneuropathy, unspecified; I25.2 Old myocardial infarction; D64.9 Anemia, unspecified; Z79.899 Other long term (current) drug therapy; Z79.82 Long term (current) use of aspirin; Z95.1 Presence of aortocoronary bypass graft; Z88.0 Allergy status to penicillin; Z95.5 Presence of coronary angioplasty implant and graft; Z23 Encounter for immunization; Z20.822 Contact with and (suspected) exposure to COVID-19
CPT/HCPCS: 36415; 71045; 80048; 80076; 83690; 83735; 83880; 84132; 84484; 85025; 85610; 90471; 96360; 96361; 97161; 99285; G0378; J1650; J7030; Q2035; U0003

== ENCOUNTER 2020-08-20 13:37 | Inpatient (IN) | payer OTHER, BC ==
--- OUTSIDE RECORDS SUMMARY | 2020-08-20 16:26 | XMS REPORT | Clinical Summary ---
:1955 Author Organization [facility] Address [address] [place] [address] Care Team Providers Name Role Phone Unavailable [...] oz/Week Comments Yes 21 Cans of beer 21.0 7-8 cans daily Alcohol Habits Answer Date Recorded How often do you have a drink containing 4 or more times a w [place] 12/27/2018 alcohol? How many drinks containing alcohol do you have 7 to 9 12/27/2018 on a typical day when you are drinking? How often do you have six or more drinks on one Daily or shekhar ost daily 12/27/2018 occasion? Sex Assigned at Date Recorded Not on file Last Filed Vital Signs Not on file Plan of Treatment Health Maintenance Due Date Last Done Comments DIABETIC EYE EXAM 01/05/1965 URINE MICROALBUMIN 01/05/1964 PNEUMOCOCCAL 65+ YRS (1 of 1 - 2019 [id number]) HEMOGLOBIN A1C 03/29/2019 12/27/2018, 12/24/2018, 12/23/2018 DEPRESSION SCREENING (12+) 06/29/2019 MEDICARE ANNUAL WELLNESS (YEAR 2 or 12/29/2019 FIRST YEAR if no IPPE) INFLUENZA VACCINE (#1) 2020 COLON CANCER SCREENING COLONOSCOPY 12/26/2028 12/26/2018 Results Not on fileafter 08/20/2019 Advance Directives For more information, please contact: [phone] Code Status Date Activated Date Inactivated Comments Partial Code 12/23/2018 4:26 AM 12/29/2018 2:06 PM This code status was determined by: Patient Drug Protocol After Arrest Occurs? Yes Mechanical Ventilation with Intubation? Yes Bag/Mask? Yes Internal/External Pacemaker? No Transfer to Critical Care? Yes Chest Compressions? No Defibrillation/Cardioversion? No
--- OUTSIDE RECORDS SUMMARY | 2020-08-20 16:27 | XMS REPORT | Continuity of Care Document ---
:1955 Author Organization [facility] t Address [address] [place] [address] Care Team Providers Name Role Phone Samm VILLANUEVA, K.H. Attending Clinician JULIA BAUTISTA Attending Clinician Unavailable JULIA BAUTISTA Admitting Clinician Unavailable Advance Directives Directive Decision Effective Date Termination Date Comments Sour ce Partial Code This Yes 2018-12-23 2018-12-29 [facility] - code status was 00:00:00 [...] Date GI bleed GI bleed Disease Active [facility] S t 12-23 [facility] Allergies, Adverse Reactions, Alerts Allergy Allergy Status Severity Reaction(s) Onset Inactive Treating Comm ents Source Name Type Date Date Clinician Penicill Propensi Active Mother ANTONIA Jordan ins ty to 12-23 had PCN [facility] - adverse 00:00: allergy, Medical reaction [address] [place] [address] s children were "tested for allergy" and was told he was allergic Social History Social Habit Start Date Stop Date Quantity Comments Source Sex Assigned At [facility] History of tobacco Cigarette Smoker [facility] use [facility] History SDOH 2018-12-27 2018-12-27 5 [facility] - Alcohol Frequency 00:00:00 00:00:00 Medical Center History SDOH 2018-12-27 2018-12-[address] [facility] - Alcohol Std Drinks 00:00:00 00:00:00 Medica l Center History [facility] 2018-12-27 2018-12-[address] [facility] - Alcohol Binge 00:00:00 00:00:[address] Alcohol Comment 2018-12-27 2018-12-27 7-8 cans [facility] Center Cigarettes smoked 2018-12-27 2018-12-[address] [facility] - current (pack per 00:00:00 00:00:00 Medical Center day) - Reported Cigarette 2018-12-27 2018-12-[address] [facility] - pack-years 00:00:00 00:00:00 [facility] Center Tobacco use and 2018-12-27 2018-12-[address] [facility] - exposure 00:00:00 00:00:00 [facility] Center Alcohol intake 2018-12-27 2018-12-27 [facility]er [facility]00 of alcohol Medical Center (finding) Smoking Status Start Date Stop Date Source Former smoker 2018-12-27 00:00:00 2018-12-27 00:00:[address] [facility] - [facility] Center Medications Ordered Filled Start Stop Current [...] Q.5D Take [address] (COREG) 12-29- tablet [facility] - 3.125 MG 00:00: 23:59 (3.125 mg Med ical tablet 00 :00 total) by Center mouth 2 (two) times daily. atorvastati 2019- No 40mg QD Take [address] [facility] (LIPITOR) 12-29- tablet (40 L ukes - 40 MG 00:00: 23:59 mg total) Medica l tablet 00 :00 by mouth Center nightly. metFORMIN 2019-0 2020- No 850mg Take [address] (GLUCOPHAGE 12-29 tablet [facility] - ) 850 MG 00:00: 23:59 (850 mg Medic al tablet 00 :00 total) by Center mouth 2 (two) times daily with breakfast and dinner. glipiZIDE 2019- No 5mg Take 1 [facility] (GLUCOTROL) 12-29 tablet (5 Teresa k[facility] - 5 MG tablet 00:00: 23:59 mg total) Medical 00 :00 by mouth 2 Center (two) times daily before meals. Procedures This patient has no known procedures. Plan of Care Planned Activity Planned Date Details Comments Source Future Scheduled 2028-12-[address] [facility] - Test 00:00:00 malignant neoplasm of Medica l Center colon (procedure) [code = 718259659] Future Scheduled 2020-02-28 INFLUENZA VACCINE (#1) [facility] - Test 00:00:00 [code = INFLUENZA Medical Ce nter VACCINE (#1)] Future Scheduled 2019-12-[address] [facility] [facility] - Test 00:00:00 WELLNESS (YEAR 2 or Medical Center FIRST YEAR if no IPPE) [code = MEDICARE ANNUAL WELLNESS (YEAR 2 or FIRST YEAR if no IPPE)] Future Scheduled 2019-06-[address] [facility] - Test 00:00:00 (12+) [code = Medical Center DEPRESSION SCREENING (12+)] Future Scheduled 2019-03-[address] - Test 00:00:00 measurement Medical Center (procedure) [code = [id number]] Future Scheduled 2019 PNEUMOCOCCAL 65+ YRS [facility] - Test 00:00:00 (1 of 1 - Medical Center [id number] PCV13) [code = PNEUMOCOCCAL 65+ YRS (1 of 1 - [id number] PCV13)] Future Scheduled 1964-01-[address] DIABETIC EYE EXAM [facility] - Test 00:00:00 [code = DIABETIC EYE Medical Center EXAM] Future Scheduled 1964-01-05 Urine screening for [facility] - Test 00:00:00 protein (procedure) Medical Center [code = 103131891] Encounters Start End Encounter Admission Attending Care Care Encounter Source Date/Time Date/Time Type Type Clinicians Facility Department ID 2020-08-17 2020-08-17 Telephone SAARI Quijano [id number] 00:00:00 00:00:00 Senddonald Manzo [id number] [place] [id number] [facility] [phone] [place] 059 [facility] 2020-08-06 2020-08-06 [id number] 11:12:00 12:10:44 Visit Brown Manzo [id number] [place] [id number] candyjane [phone] [facility]9 [facility] Results Test Description Test Time Test Comments Results Result Comments Source POCT-GLUCOSE METER 2018-12-29 08:50:00 Test Item Value Reference Range Interpretation Comme nts POC-GLUCOSE METER (BEAKER) (test 136 mg/dL 70-110 H TESTED AT [facility] [facility] 7703 0 BASIC METABOLIC [id number] 06:03:00 Test Item Value Reference Range Interpretation [...] S NOT APPLICABLE FOR DIALYSIS PATIEN TS. [id number] 05:52:00 Test Item Value Reference Range Interpretation Comments MAGNESIUM (BEAKER) (test code = 1.8 mg/dL 1.6-2.6 627) CBC W/PLT COUNT & AUTO [id number] 05:48:00 Test Item Value Reference Range Interpretation [...] (test code = 2801) CT, CHEST, WITH [id number] 04:16:00FINAL REPORT EXAMINATION: Noncontrast chest CT. CLINICAL [...] to suggest thoracic metastatic disease. Signed: Cayetano [place] Verified Date/Time: 12/29/2018 04:16:24 Reading Location: [address] Reading Room POCT-GLUCOSE [id number] 22:47:00 Test Item Value Reference Range Interpretation Comments POC-GLUCOSE METER 187 mg/dL 70-110 H TESTED AT [facility] 67 ([facility]) (test code = [address] [place] 1538) [address] POCT-GLUCOSE [id number] 19:08:00 Test Item Value Reference Range Interpretation Comments POC-GLUCOSE METER 123 mg/dL 70-110 H TESTED AT [place] [address] ([facility]) (test code = [facility] Nadeem [facility] 1538) [address] [facility], MULTI, PHARM, [id number] 15:32:00FINAL REPORT PROCEDURE: MYOCARDIAL PERFUSION SPECT IMAGING (2-Day Stress/Rest)CPT CODE: 16845 INDICATION: Define severity of known CAD CARDIOVASCULAR [...] MDReport Verified Date/Time: 12/28/2018 15:32:38 Reading Location: [address] Reading Room POCT- GLUCOSE [id number] 13:05:00 Test Item Value Reference Range Interpretation Comments POC-GLUCOSE METER 125 mg/dL 70-110 H TESTED AT [place] [address] ([facility]) (test code = [facility] 1538) [address] POCT-GLUCOSE [id number] 12:33:00 Test Item Value Reference Range Interpretation Comments POC-GLUCOSE METER 111 mg/dL 70-110 H TESTED AT [place] [address] ([facility]) (test code = [facility] 1538) [address] POCT-GLUCOSE [id number] 08:13:00 Test Item Value Reference Range Interpretation Comments POC-GLUCOSE METER 135 mg/dL 70-110 H TESTED AT [place] [address] ([facility]) (test code = [facility] 1538) [address] POCT-GLUCOSE [id number] 07:17:00 Test Item Value Reference Range Interpretation Comments POC-GLUCOSE METER 119 mg/dL 70-110 H TESTED AT [place] [address] ([facility]) (test code = [facility] 1538) [address] CBC W/PLT COUNT & AUTO [id number] 07:15:00 Test Item Value Reference Range Interpretation Comments WHITE BLOOD CELL COUNT ([facility]) 6.7 K/ L 3.5-10.5 (test code = 775) RED BLOOD CELL COUNT ([facility]) 2.62 M/ L 4.63-6.08 L (test code = 761) HEMOGLOBIN ([facility]) (test code = 7.4 GM/DL 13.7-17.5 L 410) HEMATOCRIT ([facility]) (test code = 23.5 % 40.1-51.0 L [...] (BEAKER) (test code = 2801) BASIC METABOLIC [id number] 07:12:00 Test Item Value Reference Range Interpretation [...] S NOT APPLICABLE FOR DIALYSIS PATIEN TS. [id number] 07:10:00 Test Item Value Reference Range Interpretation Comments MAGNESIUM (BEAKER) (test code = 1.8 mg/dL 1.6-2.6 627) POCT-GLUCOSE [id number] 21:14:00 Test Item Value Reference Range Interpretation Comments POC-GLUCOSE METER 143 mg/dL 70-110 H TESTED AT [facility] 6720 ([facility]) (test code = OCTAVIO Silver [facility] 1538) [address] TISSUE [id number] 18:13:00Surgical Pathology Report Case: [id number] Authorizing Provider: Joshua Harper MD Collected: 12/26/2018 1223 Ordering Location: [address] Received: 12/27/2018 0757 Service Pathologist: Gisell Rodriguez MD Specimen: Polyp, Colon - Left/Descending, via hot snare COLON, LEFT/DESCENDING, ENDOSCOPIC POLYPECTOMY: - TUBULAR ADENOMA - NO HIGH GRADE DYSPLASIA OR INVASIVE CARCINOMA SEEN Signing Pathologist Direct Phone Line: [phone] signed by Gisell Rodriguez MD on 12/27/2018 at 6:13 [id number] hemorrhage, unspecified gastrointestinal hemorrhag e typePolyp, colon-left [...] following filtration in cassette A1. RP/ew PERFORMEDPOCT-GLUCOSE [id number] 18:10:00 Test Item Value Reference Range Interpretation Comments POC-GLUCOSE METER 158 mg/dL 70-110 H TESTED AT [place] [address] ([facility]) (test code = [facility] 1538) [address] POCT-GLUCOSE [id number] 13:47:00 Test Item Value Reference Range Interpretation Comments POC-GLUCOSE METER 96 mg/dL 70-110 TESTED AT [place] [address] ([facility]) (test code = [facility] [address] 1538) HEMOGLOBIN [id number] 10:07:00 Test Item Value Reference Range Interpretation Comments HEMOGLOBIN A1C ([facility]) (test code = 9.0 % 4.3-6.1 H 368) POCT-GLUCOSE [id number] 08:44:00 Test Item Value Reference Range Interpretation Comments POC-GLUCOSE METER 93 mg/dL 70-110 TESTED AT [place] [address] ([facility]) (test code = [facility] [address] 1538) BASIC METABOLIC [id number] 06:55:00 Test Item Value Reference Range Interpretation [...] S NOT APPLICABLE FOR DIALYSIS PATIEN TS. [id number] 06:54:00 Test Item Value Reference Range Interpretation Comments MAGNESIUM (BEAKER) (test code = 1.6 mg/dL 1.6-2.6 627) LIPID [id number] 06:54:00 Test Item Value Reference Range Interpretation [...] Very High >=190CBC W/PLT COUNT & AUTO [id number] 05:06:00 Test Item Value Reference Range Interpretation [...] PERCENT (BEAKER) (test code = 2801) POCT-GLUCOSE [id number] 22:01:00 Test Item Value Reference Range Interpretation Comments POC-GLUCOSE METER 96 mg/dL 70-110 TESTED AT [place] [address] (BEAKER) ([facility] [address] 1538) POCT-GLUCOSE [id number] 17:38:00 Test Item Value Reference Range Interpretation Comments POC-GLUCOSE METER 167 mg/dL 70-110 H TESTED AT [facility] 6720 (BEAKER) (test code = [facility] 1538) [address] HEMOGLOBIN AND [id number] 16:24:00 Test Item Value Reference Range Interpretation Comments HEMOGLOBIN (BEAKER) (test code = 7.3 GM/DL 13.7-17.5 L 410) HEMATOCRIT (BEAKER) (test code = 23.0 % 40.1-51.0 L 411) POCT-GLUCOSE [id number] 14:40:00 Test Item Value Reference Range Interpretation Comments POC-GLUCOSE METER 149 mg/dL 70-110 H TESTED AT [facility] 6720 (BEAKER) (test code = [place] 1538) [address] [id number] 09:08:00 Test Item Value Reference Range Interpretation Comments MAGNESIUM (BEAKER) (test code = 1.8 mg/dL 1.6-2.6 627) BASIC METABOLIC [id number] 09:08:00 Test Item Value Reference Range Interpretation [...] Specimen slightly ictericCBC W/PLT COUNT & AUTO [id number] 08:26:00 Test Item Value Reference Range Interpretation [...] % 0-1 PERCENT (BEAKER) (test code = 2804) HEMOGLOBIN AND [id number] 08:18:00 Test Item Value Reference Range Interpretation Comments HEMOGLOBIN (BEAKER) (test code = 7.6 GM/DL 13.7-17.5 L 410) HEMATOCRIT (BEAKER) (test code = 24.2 % 40.1-51.0 L 411) POCT-GLUCOSE [id number] 08:15:00 Test Item Value Reference Range Interpretation Comments POC-GLUCOSE METER 141 mg/dL 70-110 H TESTED AT [facility] 6720 (BEAKER) (test code = [place] 5803) [address] B-TYPE NATRIURETIC FACTOR (BNP)2018-12-26 08:09:00 Test Item Value Reference Range Interpretation Comments B-TYPE NATRIURETIC PEPTIDE (BEAKER) 374 pg/mL 0-100 H (test code = 700) U/S, RENAL, [id number] 07:07:00Reason for exam:->akiFINAL REPORT Ultrasound of the [...] is recommended. No hydronephrosis. Signed: Raf Mcclellan [facility] Verified Date/Time: 12/26/2018 07:07:06 GLOBIN AND [id number] 01:20:00 Test Item Value Reference Range Interpretation Comments HEMOGLOBIN (BEAKER) (test code = 7.3 GM/DL 13.7-17.5 L 410) HEMATOCRIT (BEAKER) (test code = 23.0 % 40.1-51.0 L 411) URINALYSIS W/ [id number] 00:37:00 Test Item Value Reference Range Interpretation [...] code = 1583) SOURCE(BEAKER) (test code = 2428) POCT-GLUCOSE [id number] 21:57:00 Test Item Value Reference Range Interpretation Comments POC-GLUCOSE METER 114 mg/dL 70-110 H TESTED AT [facility] 6720 (BEAKER) (test code = OCTAVIO Silver [place] 1538) [address] CREATININE, RANDOM [id number] 19:04:00 Test Item Value Reference Range Interpretation Comments CREATININE URINE (BEAKER) (test 145.7 mg/dL code = 375) Reference Range: No NormalsPROTEIN, RANDOM [id number] 19:04:00 Test Item Value Reference Range Interpretation Comments PROTEIN, URINE (BEAKER) (test code = 20 mg/dL 0-14 H 1569) SODIUM, RANDOM [id number] 19:04:00 Test Item Value Reference Range Interpretation Comments SODIUM URINE (BEAKER) (test code = 51 meq/L 243) Reference Range: No NormalsPOCT-GLUCOSE [id number] 17:27:00 Test Item Value Reference Range Interpretation Comments POC-GLUCOSE METER 121 mg/dL 70-110 H TESTED AT [facility] 6720 (BEAKER) (test code = [address] [place] 1538) [address] HEMOGLOBIN AND [id number] 14:57:00 Test Item Value Reference Range Interpretation Comments HEMOGLOBIN (BEAKER) (test code = 7.5 GM/DL 13.7-17.5 L 410) HEMATOCRIT (BEAKER) (test code = 23.5 % 40.1-51.0 L 411) POCT-GLUCOSE [id number] 12:09:00 Test Item Value Reference Range Interpretation Comments POC-GLUCOSE METER 162 mg/dL 70-110 H TESTED AT [place] [id number] (BEAKER) (test code = [address] [place] 1538) [address] POCT-GLUCOSE [id number] 08:20:00 Test Item Value Reference Range Interpretation Comments POC-GLUCOSE METER 204 mg/dL 70-110 H TESTED AT [place] [address] (BEAKER) (test code = [address] [place] 1538) [address] HEMOGLOBIN AND [id number] 06:58:00 Test Item Value Reference Range Interpretation Comments HEMOGLOBIN (BEAKER) (test code = 7.2 GM/DL 13.7-17.5 L 410) HEMATOCRIT (BEAKER) (test code = 22.6 % 40.1-51.0 L 411) BASIC METABOLIC [id number] 04:16:00 Test Item Value Reference Range Interpretation [...] pg/mL 0-100 H (test code = 700) [id number] 03:47:00 Test Item Value Reference Range Interpretation Comments MAGNESIUM (BEAKER) (test code = 2.1 mg/dL 1.6-2.6 627) CBC W/PLT COUNT & AUTO [id number] 03:40:00 Test Item Value Reference Range Interpretation [...] (BEAKER) (test code = 2801) HEMOGLOBIN AND [id number] 03:12:00 Test Item Value Reference Range Interpretation Comments HEMOGLOBIN (BEAKER) (test code = 7.5 GM/DL 13.7-17.5 L 410) HEMATOCRIT (BEAKER) (test code = 23.0 % 40.1-51.0 L 411) POCT-GLUCOSE [id number] 21:07:00 Test Item Value Reference Range Interpretation Comments POC-GLUCOSE METER 269 mg/dL 70-110 H TESTED AT [place] [address] ([facility]) (test code = OCTAVIO Silver [facility] 1538) [address] HEMOGLOBIN AND [id number] 18:32:00 Test Item Value Reference Range Interpretation Comments HEMOGLOBIN (BEAKER) (test code = 8.5 GM/DL 13.7-17.5 L 410) HEMATOCRIT (BEAKER) (test code = 25.8 % 40.1-51.0 L 411) POCT-GLUCOSE [id number] 17:19:00 Test Item Value Reference Range Interpretation Comments POC-GLUCOSE METER 246 mg/dL 70-110 H TESTED AT [facility] 6720 ([facility]) (test code = OCTAVIO Silver [facility] 1538) [address] HEMOGLOBIN [id number] 12:35:00 Test Item Value Reference Range Interpretation Comments HEMOGLOBIN A1C (BEAKER) (test code = 9.8 % 4.3-6.1 H 368) POCT-GLUCOSE [id number] 11:33:00 Test Item Value Reference Range Interpretation Comments POC-GLUCOSE METER 282 mg/dL 70-110 H TESTED AT [facility] 6720 (BEAKER) (test code = [place] 1538) [address] CBC W/PLT COUNT & AUTO [id number] 08:56:00 Test Item Value Reference Range Interpretation [...] 3438) Received comment: User comments: Slide comments:POCT-GLUCOSE [id number] 08:09:00 Test Item Value Reference Range Interpretation Comments POC-GLUCOSE METER 277 mg/dL 70-110 H TESTED AT [facility] 6720 (BEAKER) (test code = [place] 1538) [address] BASIC METABOLIC [id number] 05:22:00 Test Item Value Reference Range Interpretation [...] S NOT APPLICABLE FOR DIALYSIS PATIEN TS. [id number] 04:55:00 Test Item Value Reference Range Interpretation Comments MAGNESIUM (BEAKER) 2.3 mg/dL 1.6-2.6 Specimen slightly (test code = 627) hemolyzed [id number] 00:33:00 Test Item Value Reference Range Interpretation Comments MAGNESIUM (BEAKER) 2.7 mg/dL 1.6-2.6 H Specimen slightly (test code = 627) hemolyzed HEMOGLOBIN AND [id number] 00:22:00 Test Item Value Reference Range Interpretation Comments HEMOGLOBIN (BEAKER) (test code = 9.2 GM/DL 13.7-17.5 L 410) HEMATOCRIT (BEAKER) (test code = 28.8 % 40.1-51.0 L 411) POCT-GLUCOSE [id number] 22:21:00 Test Item Value Reference Range Interpretation Comments POC-GLUCOSE METER 360 mg/dL 70-110 H TESTED AT [facility] 6720 (BEAKER) (test code = [place] 1538) [address] ANG, ARTERIAL EMBOLIZATION FOR [id number] 18:54:00Reason for exam:- >possible diverticular bleedFINAL REPORT [...] inch guide wire was advanced. A 5 [place] sheath was utilized. A [address] catheter was placed selectively into the [...] MDReport Verified Date/Time: 12/23/2018 18:54:01 Reading Location: [place] [address] Angio Body Reading Room HEMOGLOBIN AND [id number] 18:47:00 Test Item Value Reference Range Interpretation Comments HEMOGLOBIN (BEAKER) (test code = 10.1 GM/DL 13.7-17.5 L 410) HEMATOCRIT (BEAKER) (test code = 32.2 % 40.1-51.0 L 411) HEMOGLOBIN [id number] 14:36:00 Test Item Value Reference Range Interpretation Comments HEMOGLOBIN A1C (BEAKER) (test code = 10.2 % 4.3-6.1 H 368) [id number] 12:58:00 Test Item Value Reference Range Interpretation Comments MAGNESIUM (BEAKER) (test code = 0.9 mg/dL 1.6-2.6 LL 627) LIPID [id number] 12:47:00 Test Item Value Reference Range Interpretation [...] (BEAKER) (test code = 2801) HEMOGLOBIN AND [id number] 12:16:00 Test Item Value Reference Range Interpretation Comments HEMOGLOBIN (BEAKER) (test code = 10.6 GM/DL 13.7-17.5 L 410) HEMATOCRIT (BEAKER) (test code = 33.6 % 40.1-51.0 L 411) POCT-GLUCOSE [id number] 11:58:00 Test Item Value Reference Range Interpretation Comments POC-GLUCOSE METER 398 mg/dL 70-110 H TESTED AT [facility] 6720 (BEAKER) (test code = OCTAVIO Silver [facility] 1538) [address] CT, [id number] 08:53:00FINAL REPORT TECHNIQUE: CT of the abdomen [...] MDReport Verified Date/Time: 12/23/2018 08:53:50 Reading Location: [address] Radiology Reading Room E lectronically signed by: JOSETTE CONRAD MD on 12/23/2018 08:53 AM HEMOGLOBIN AND [id number] 06:52:00 Test Item Value Reference Range Interpretation Comments HEMOGLOBIN (BEAKER) (test code = 13.8 GM/DL 13.7-17.5 410) HEMATOCRIT (BEAKER) (test code = 43.8 % 40.1-51.0 411) BASIC METABOLIC [id number] 06:05:00 Test Item Value Reference Range Interpretation [...] FOR DIALYSIS PATIEN TS. Specimen slightly ictericPROTHROMBIN TIME/[id number] 05:22:00 Test Item Value Reference Range Interpretation [...]
[2020-08-20] MEDS: METOPROLOL XL 50 MG TAB PO SCH (18:17)
[2020-08-20] MEDS: ENOXAPARIN 40 MG/0.4 ML SQ SCH ×2 (19:00→20:50)
[2020-08-20] MEDS: lisinopriL 5 MG TAB PO SCH (20:00)
[2020-08-20] MEDS: MELATONIN 3 MG TABLET PO PRN (20:51)
[2020-08-21] MEDS: METOPROLOL XL 50 MG TAB PO SCH ×2 (05:10→17:34)
[2020-08-21 06:38] LABS: Absolute Lymphocytes (CBC) 0.5 K/uL (0.7-4.9); Albumin 1.8 g/dL (3.4-5.0); BUN Blood Urea Nitrogen 13 mg/dL (7-18); Basophils % 0.9 % (0-1.3); Bicarbonate 23 mmol/L (21-32); Glucose Level 93 mg/dL (74-106); Hematocrit 52.7 % (39.6-49.0); Lymphocytes % 11.8 % (15.3-44.8); MPV 8.5 fL (7.6-11.3); Magnesium 1.8 mg/dL (1.8-2.4); Potassium 3.7 mmol/L (3.5-5.1); RBC Red Blood Cell Count 7.81 M/uL (4.33-5.43); Sodium Level 138 mmol/L (136-145)
[2020-08-21 07:39] LABS: Anisocytosis 2+; Blood Morphology Comment NOTED (NOT SEEN); Hypochromasia 1+; Platelet Estimate ADEQ; Polychromasia SLIGHT; Target Cells FEW
[2020-08-21 07:40] LABS: Poikilocytosis 2+
[2020-08-21] MEDS: ASPIRIN 81 MG CHEWABLE TABLET PO SCH (07:58)
[2020-08-21] MEDS: ATORVASTATIN 40 MG TAB PO SCH (07:58)
[2020-08-21] MEDS: FUROSEMIDE 40 MG TABLET PO SCH (07:59)
[2020-08-21] MEDS: lisinopriL 5 MG TAB PO SCH ×2 (07:59→19:04)
[2020-08-21] MEDS: ENOXAPARIN 40 MG/0.4 ML SQ SCH (08:00)
[2020-08-21] MEDS ORDERED: POTASSIUM CL SA 10 MEQ TAB PO SCH (08:00)
[2020-08-21] MEDS: LOPERAMIDE HCL 2 MG CAPSULE PO PRN (08:57)
[2020-08-21 09:53] VITALS: BMI 28.0
[2020-08-21 13:41] LABS: Urine Appearance CLEAR; Urine Blood NEGATIVE (NEG); Urine Color DK YELLOW; Urine Glucose NEGATIVE (NEG); Urine Protein TRACE (NEG); Urine Specific Gravity >=1.030 (1.005-1.030); Urine pH 5.5 (5.0-7.0)
[2020-08-21 13:48] LABS: Urine Bilirubin 1+ (NEG)
[2020-08-21 14:00] LABS: Urine Bacteria <20 /HPF (NONE SEEN); Urine RBC <5 /HPF (NONE SEEN)
[2020-08-21] MEDS: LACTOBACILLUS/ACIDOPHILUS TAB PO SCH ×2 (14:28→19:04)
--- NOTE | 2020-08-21 16:32 | P.CNS ---
Date of Consult: 08/21/20 Reason for Consult: painful toenails and wound left foot Chief Complaint: painful toenails and wound left foot Allergies Penicillins Allergy (Verified 12/19/19 16:05) Rash Home Medications: Atorvastatin Calcium [Lipitor] 40 mg PO DAILY 08/16/20 Lisinopril [Zestril] 5 mg PO BID 08/16/20 Potassium Chloride [Klor-Con 10] 20 meq PO DAILY 08/16/20 Aspirin [Aspirin EC 81 MG] 81 mg PO DAILY #90 tablet. 08/18/20 Furosemide [Lasix] 40 mg PO DAILY #30 tab 08/18/20 Loperamide [Imodium] 2 mg PO Q4HP PRN #30 cap 08/18/20 Metoprolol Succinate [Toprol Xl] 50 mg PO BID 08/20/20 Lactobacillus Acidophilus [Acidophilus] 1 tab PO TID 08/21/20 - Past Medical/Surgical History Diabetic: Yes -: CHF -: DM -: Kidney CA -untreated -: Lymphedema -: HTN -: Hyperlipidemia -: CAD -: Anemia -: CABG - Social History Alcohol use: No CD- Drugs: No Caffeine use: No Place of Residence: Home Review of Systems 10-point ROS is otherwise unremarkable Physical Examination Temp Pulse Resp BP Pulse Ox 97.2 F 71 18 140/70 95 08/21/20 06:40 08/21/20 07:59 08/21/20 06:40 08/21/20 07:59 08/21/20 06:40 General: Alert, In no apparent distress, Oriented x3 Cardiovascular: Edema, Abnormal pulses Capillary refill: <2 Seconds Musculoskeletal: No clubbing, No swelling, No contractures, No erythema, No tenderness, No warmth Integumentary: Diabetic ulcer (ulceration plantar left fifth mpj has minimal undermining entire periphery with fibrin noted in the base. Wound does not probe to bone. No signs of infection. Wound measure 1.2cm X 0.8cm X 0.4cm), Other (Thickened hypertrophic nails with subungual debris x 10) Neurological: Abnormal sensation Laboratory Data (last 24 hrs) 08/21/20 06:08: Sodium 138, Potassium 3.7, BUN 13, Creatinine 0.71, Glucose 93, Magnesium 1.8 08/21/20 06:08: WBC 4.60 D, Hgb 16.2, Hct 52.7 H, Plt Count 144 L - Problems (1) Tinea unguium Current Visit: Yes Status: Acute (2) Type 2 diabetes mellitus with diabetic peripheral angiopathy without gangrene Current Visit: Yes Status: Acute (3) Diabetic ulcer of left foot Current Visit: No Status: Resolved Conclusions/Impression: Debridement of nails x 10. Debridement of left fifth mpj wound with tissue nippers to subcutaneous tissue that was excisional in nature. Santyl to wound daily. Upon discharge from rehab patient can follow up with Dr. Fontanez in wound care
--- NOTE | 2020-08-21 18:08 | R.HP ---
HISTORY AND PHYSICAL FACILITY: [facility] ENCOUNTER DATE AND TIME: 08/21/2020 17:55 (SHEET TAKER) MR#: [id number] NAME EVELIN CANTU ADDRESS: [address] [place] [address]: [place] [id number] PHONE: DATE OF : 1955 AGE: 65 SSN# [id number] GENDER: Male DEXTERITY Right-handed MARITAL STATUS RACE Unknown race PRE-HOSPITAL LIVING SETTING 01 - Home (private home/apt. board/care, assisted living, fci, transitional living) PRE-HOSPITAL LIVING WITH Alone ENCOUNTER PHYSICIAN: Dr. Lonny Hernandez M.D. REFERRING DOCTOR: DATE OF ADMISSION: 08/20/2020 16:24 (SHEET TAKER) REFERRING FACILITY [facility] HOME TYPE AND DETAILS: Type of home: single family house # of steps to enter the residence: 2 # of levels in the residence: 1 # of steps within the residence: 0 ONSET DATE: 08/20/2020 PRIMARY DIAGNOSIS-RELATED SURGERIES: N/A HISTORY OF PRESENT ILLNESS (HPI): Pt. is a 65 yo Right-handed male of unknown race. On 08/20/2020 he was admitted to [facility] with diagnosis CHF. His impairment category is Cardiac 09 - Cardiac Disorders (09). Pre-morbidly, Pt. was independent/mod-I in Balance, Safety Awareness, Self-Care, Sphincter Control, a nd Transfers Control; and he had good Endurance and Transfers Control. Currently, he has deficits of Endurance, Safety Awareness, Locomotion, Transfers Control, and Sphinct er Control. Pt. is now referred to [facility] for acute in-patient rehabilitation in order to maximize patient's functional independence in activities of daily living, strength, ROM, and mobi lity. Patient has realistic goal of being discharged at assistance level 7-Ind to reside at Home with Pt s elf. MEDICATION ALLERGIES: No Known Drug Allergies (NKDA) ENVIRONMENTAL ALLERGIES: - Substance Allergies None Known - Other Allergies None Known PAST MEDICAL HISTORY: ANEMIA CAB HYPERTENSION DIABETIC CHF DM KIDNEY CA CT CHEST ABD PEL W NPLSM KIDNEY LUNG PED PAST SURGICAL HISTORY: CABG PACEMAKER A/P SOCIAL HISTORY: - Home Living Alone REVIEW OF SYSTEMS: - Gen No Chills Fatigue No Fever - Eyes No Double Vision No itchiness - ENMT No Difficulty Swallowing - CVS No Chest Discomfort No Chest Pain Fatigue No Weight Gain - Resp No Cough Shortness of Breath - GI Continent No Abdominal Pain No Constipation No Diarrhea - Continent No Kidney Pain No Painful Urination No Urinary Urgency - MSK No Joint Pain Muscle Cramps Stiffness - Skin No Itching No Rash No Suspicious Lesions - Neuro Coordination Difficulty No Difficulty with Concentration No Memory Loss No Seizures Weakness - Psych No Anxiety No Depression No HIV Exposure No Persistent Infections No Seasonal Allergies - Endo No Cold/Heat Intolerance No Excessive Hunger No Excessive Thirst No Excessive Urination PHYSICAL EXAM - Gen Alert and awake Lying in bed No apparent distress Oriented to: person, time, and place - Skin Dark skin discoloration of both legs consistent with lymphedema and stasis dermatitis Normacephalic - Eyes No discharge - ENMT No abnormalities - Neck No stiffness - CVS RRR - Chest Mildly decreased breath sounds bilaterally. - Abd + distended - GI + bowel sound Deferred - No abnormalities - Ext Moderate edema in both lower extremities. - MSK 4+/5 weakness in both lower extremity. - Neuro No focal deficits - Psych No abnormalities VITAL SIGNS Temperature: 97.3 F SBP/DBP: 126/69 Pulse: 71 Resp: 16 NURSING: - Shower allowing shower ACTIVITIES OOB only with supervision QI SCORES: - Self-Care A. Eating 06-Independent B. Oral hygiene 03-Partial/moderate assistance C. Toileting hygiene 03-Partial/moderate assistance E. Shower/bathe self 03-Partial/moderate assistance F. Upper body dressing 03-Partial/moderate assistance G. Lower body dressing 03-Partial/moderate assistance H. Putting on/taking off footwear 06-Independent - Mobility A. Roll left and right 04-Supervision or touching assistance B. Sit to lying 06-Independent C. Lying to sitting on side of bed 03-Partial/moderate assistance D. Sit to stand 03-Partial/moderate assistance E. Chair/gan-eu-hbbxg transfer 03-Partial/moderate assistance F. Toilet transfer 03-Partial/moderate assistance G. Car transfer 03-Partial/moderate assistance I. Walk 10 feet 03-Partial/moderate assistance J. Walk 50 feet with two turns 88-Not attempted due to medical condition or safety concerns K. Walk 150 feet 88-Not attempted due to medical condition or safety concerns L. Walking 10 feet on uneven surfaces 03-Partial/moderate assistance M. 1 step (curb) 88-Not attempted due to medical condition or safety concerns N. 4 steps 88-Not attempted due to medical condition or safety concerns O. 12 steps 03-Partial/moderate assistance P. Picking up object 04-Supervision or touching assistance R. Wheel 50 feet with two turns 88-Not attempted due to medical condition or safety concerns S. Wheel 150 feet 88-Not attempted due to medical condition or safety concerns - Bladder and Bowel Bladder continence Bowel continence - Endurance Fair - Balance Fair - Safety Awareness Fair CURRENT FUNC. DEFICITS: Mobility, Endurance, Balance, Safety Awareness, and Self-Care MEDICATIONS: - Other See attached MAR (Medication Administration Record) ASSESSMENT: Pt. is a 65 yo Right-handed male of unknown race.On 08/20/2020 he was admitted to [facility] with diagnosis CHF.His impairment category is Cardiac 09 - Cardiac Disorders (09).Pre-morbidly, Pt. was independent/mod-I in Balance, Safety Awareness, Self-Care, Sphincter Control, and Transfers Control; and he had good Endurance and Transfers Control.Currently, he has deficits of Endurance, Saf ety Awareness, Locomotion, Transfers Control, and Sphincter Control.Pt. is now referred to [facility] for acute in-patient rehabilitation in order to maximize patient's functional independence in activities of daily living, strength, ROM, and mobility.- Rehab Goal Patient has realistic goal of being discharged at assistance level 7-Ind to reside at Home with Pt s elf. REHAB PLAN: - Physical Therapy Gait dysfunction - to improve, our physical therapists will perform initial evaluation of pt's status upon admission and devise an individualized program for Gait Training, and Wheel Chair mobility Inability to transfer - to improve, our physical therapists will perform initial evaluation of pt's s tatus upon admission and devise an individualized program for Bed mobility Need for home safety evaluation - to improve, our physical therapists will perform initial evaluation of pt's status upon admission and devise an individualized program for Home Evaluation Need in caregiver upon discharge - to improve, our physical therapists will perform initial evaluatio n of pt's status upon admission and devise an individualized program for Caregiver Training Edema - to improve, our physical therapists will perform initial evaluation of pt's status upon admi ssion and devise an individualized program for Elevation Training, and Lymphedema Therapy New precaution - to improve, our physical therapists will perform initial evaluation of pt's status u edin admission and devise an individualized program for Patient precaution education Poor endurance - to improve, our physical therapists will perform initial evaluation of pt's status u edin admission and devise an individualized program for Endurance Training Weakness - to improve, our physical therapists will perform initial evaluation of pt's status upon ad mission and devise an individualized program for Aquatic Therapy, Neuromuscular Reeducation, and Stre ngthening Achieving independence - to improve, our physical therapists will perform initial evaluation of pt's status upon admission and devise an individualized program for Community Reintegration Activities - Occupational Therapy Need for cna caregiver - to improve, our occupation therapists will perform initial evaluation of pt's s tatus upon admission and devise an individualized program for Caregiver Training Weakness - to improve, our occupation therapists will perform initial evaluation of pt's status upon admission and devise an individualized program for Aquatic Therapy, Balance, Endurance, UE ROM, and U E strengthening MEDICAL PLAN: - Diet Type Start Regular - Diet - Liquid Texture Start Regular - Tube Feed Start N/A - Other See attached MAR (Medication Administration Record) - Diet - Solid Texture Regular - Shower shower DISCHARGE PLAN: - Estimated Length of Stay (days) 10. - Consensus on plan Discharge plan has been discussed with primary caregiver. Patient/Family is in agreement with the debra n. Primary caregiver is in agreement with the plan. - Patient/Family Goals Return home independently. - Planned Living Setting Upon Discharge Home, to live alone. Transitional Living. Primary caregiver: Pt self. SIGNATURE PANEL: (SHEET TAKER)
--- NOTE | 2020-08-21 18:15 | PAPE ---
POST ADMISSION PHYSICIAN EVALUATION PATIENT: [facility] MR# [id number] REFERRING DOCTOR EVALUATION DATE AND TIME 08/21/2020 18:11 (AUTOMOBILE REPOSSESSOR) NAME EVELIN CANTU DATE OF 1955 AGE 65 PHONE SSN# [id number] GENDER male EVALUATING PHYSICIAN Dr. Lonny Hernandez M.D. ADMISSION DIAGNOSIS: CHF ONSET DATE 08/20/2020 POST-ADMISSION FUNCTIONAL/MEDICAL STATUS: - Bladder Same accident frequency: Ind - No accidents in the past 7 days - Bowel Same accident frequency: Ind - No accidents in the past 7 days - Walking Same score based on distance walked: 0(N/A) Same score based on distance walked: 1(<=50ft) - Wheelchair Same score based on distance traveled: 0(N/A) STATUS CHANGE EVALUATION: No change in Functional or Medical Status is identified compared with Pre-Admission screening. PATIENT NEEDS CLOSE MEDICAL SUPERVISION BY A REHABILITATION PHYSICIAN FOR: Coordination of Treatment Team PATIENT REQUIRES 24X7 REHAB NURSING FOR MEDICAL AND FUNCTIONAL MGT. OF THE FOLLOWING DEFICITS: Disease Management Medication Management Patient/Family Education Providing Safe Environment PATIENT REQUIRES INTENSIVE, COORDINATED INTERDISCIPLINARY APPROACH TO REHAB: Arranging Home Equipment/Services Discharge Planning Family Intervention/Training Implementation Specialist Payroll/Case Management LIST OF IDENTIFIED AND POTENTIAL PROBLEMS: Alteration in leisure activities Bladder, Incontinence Bowel, Incontinence Infection, Actual or Potential Mobility Impaired Pain, Alteration in Comfort Self Care Deficit Skin Integrity, Actual or Potential Urinary Tract Infection (UTI), Actual or Potential PATIENT COULD BE AT RISK FOR COMPLICATIONS FROM ADVERSE MEDICAL CONDITIONS DUE TO HIS/HER COMORBIDITI ES AND THE RIGORS OF THE INTENSIVE REHABILLITATION PROGRAM. METHODS OR INTERVENTIONS TO AVOID COMPLIC ATIONS INCLUDE: - Infection Clinical staff to assess and manage the signs and symptoms of infection including fever, redness, war mth, etc. - Urinary Tract Infection - Falls Patient will be evaluated for Fall Precautions and will be placed on Fall Precautions as indicated pe r protocol. - Skin Breakdown Nursing will assess skin daily using assessment tool and will place on Skin Breakdown Precautions as indicated per protocol. - Pain Clinical staff may employ non-medication methods such as massage, distraction, decrease stimulus, etc . as needed. Clinical staff will assess patient's pain level every shift per protocol to assess and e nsure pain management effectiveness. Medications will be given and the pain level re-assessed. PRELIMINARY PLAN OF CARE: - Physical Therapy Patient needs Physical Therapy for a daily minimum of 1.5 hours at least 5 out of 7 days, to improve: Mobility, Strengthening, Transfers, Stretching, ROM, Endurance, Ability to manage stairs, Gait, and Balance. - Rehabilitation Nursing Patient requires 24x7 Rehabilitation Nursing for: Pain Issues, Identifying and preventing risk factor s, Monitoring and reporting current medical conditions, Assisting with ambulation and transfer, Seema ting with all ADL-s, Teaching patients about disease process and medications, Family teaching, Provid ing safe environment, Bowel and Bladder Issues, Skin Integrity, and Medication Management. Patient needs Implementation Specialist Payroll and/or Case Management for: Discharge Planning, Arranging Home Equipmen t or Services, and Family Interventions. - Dietary and Nutrition Services Patient needs Dietary and Nutrition Services for: Adequate Nutrition, Nutritional Supplements, and Nu tritional Education. - Occupational Therapy Patient needs Occupational Therapy for a daily minimum of 1.5 hours at least 5 out of 7 days, to impr ove Activities of Daily Living, including: Eating, Grooming, Bathing, Dressing, Toileting, Toilet Tra nsfers, Community Reintegration, Higher functional activities, Adaptive Equipment, Splinting, Househo ld Tasks, and Other activities as determined. QI SCORES: - Self-Care A. Eating 06-Independent B. Oral hygiene 03-Partial/moderate assistance C. Toileting hygiene 03-Partial/moderate assistance E. Shower/bathe self 03-Partial/moderate assistance F. Upper body dressing 03-Partial/moderate assistance G. Lower body dressing 03-Partial/moderate assistance H. Putting on/taking off footwear 06-Independent - Mobility A. Roll left and right 04-Supervision or touching assistance B. Sit to lying 06-Independent C. Lying to sitting on side of bed 03-Partial/moderate assistance D. Sit to stand 03-Partial/moderate assistance E. Chair/chb-vo-aldfv transfer 03-Partial/moderate assistance F. Toilet transfer 03-Partial/moderate assistance G. Car transfer 03-Partial/moderate assistance I. Walk 10 feet 03-Partial/moderate assistance J. Walk 50 feet with two turns 88-Not attempted due to medical condition or safety concerns K. Walk 150 feet 88-Not attempted due to medical condition or safety concerns L. Walking 10 feet on uneven surfaces 03-Partial/moderate assistance M. 1 step (curb) 88-Not attempted due to medical condition or safety concerns N. 4 steps 88-Not attempted due to medical condition or safety concerns O. 12 steps 03-Partial/moderate assistance P. Picking up object 04-Supervision or touching assistance R. Wheel 50 feet with two turns 88-Not attempted due to medical condition or safety concerns S. Wheel 150 feet 88-Not attempted due to medical condition or safety concerns - Bladder and Bowel Bladder continence Bowel continence - Endurance Fair - Balance Fair - Safety Awareness Fair POTENTIAL FUNCTIONAL GOALS FOR PATIENT TO ACHIEVE BY DISCHARGE: - Safety Precaution Patient will remain free from falls or injury at time of discharge. - Bed Mobility Patient will perform bed mobility at 4-Stevie level of assistance. - Transfers Patient will complete transfers from bed to chair at 4-Stevie level of assistance. - Mobility Patient will ambulate 150 ft with 4-Stevie level of assistance with RW. PATIENT REHAB POTENTIAL Philipp CANTU is able and expected to receive 3 hours of individualized therapy daily on at least 5 of ever y 7 days Philipp CANTU's prognosis for significant practical improvement within a reasonable period of time appears Good Expected level of measurable improvement will be of a practical value to Philipp CANTU's functional capacit y or adaptations to impairments Has a viable Discharge Plan Medically appropriate; condition is sufficiently stable to participate in intensive rehab program DISCHARGE PLAN: - Estimated Length of Stay (days) 10. - Consensus on plan Discharge plan has been discussed with primary caregiver. Patient/Family is in agreement with the debra n. Primary caregiver is in agreement with the plan. - Patient/Family Goals Return home independently. - Planned Living Setting Upon Discharge Home, to live alone. Transitional Living. Primary caregiver: Pt self. CONCLUSION ON REHABILITATION NECESSITY: I have evaluated patient's pre-admission functional status and, comparing it to the patient's post-ad mission functional status now, I conclude that the pre-admission assessment was accurate. Patient's c ondition on admission supports the medical necessity of admission to IRF. It is safe to proceed with patient's therapy program. SIGNATURE PANEL: (AUTOMOBILE REPOSSESSOR)
[2020-08-21] MEDS: APIXABAN 2.5 MG TABLET PO SCH (19:04)
[2020-08-21] MEDS: JUVEN PACKET PO SCH (19:13)
[2020-08-22] MEDS: METOPROLOL XL 50 MG TAB PO SCH ×2 (05:03→17:16)
[2020-08-22] MEDS: ATORVASTATIN 40 MG TAB PO SCH ×2 (08:00→19:19)
[2020-08-22] MEDS: ASPIRIN 81 MG CHEWABLE TABLET PO SCH (08:15)
[2020-08-22] MEDS: lisinopriL 5 MG TAB PO SCH ×2 (08:15→19:18)
[2020-08-22] MEDS: LACTOBACILLUS/ACIDOPHILUS TAB PO SCH ×4 (08:15→19:18)
[2020-08-22] MEDS: APIXABAN 2.5 MG TABLET PO SCH ×2 (08:16→19:18)
[2020-08-22] MEDS: FUROSEMIDE 40 MG TABLET PO SCH (08:17)
[2020-08-22] MEDS: JUVEN PACKET PO SCH ×2 (08:18→19:18)
[2020-08-22] MEDS: POTASSIUM 25 MEQ EFFERV TAB PO SCH (08:18)
[2020-08-22] MEDS: LOPERAMIDE HCL 2 MG CAPSULE PO PRN (09:23)
[2020-08-22] MEDS: COLLAGENASE 30 GM OINTMENT TOP SCH (12:03)
--- NOTE | 2020-08-22 17:26 | R.PN ---
PROGRESS NOTES ENCOUNTER DATE AND TIME: 08/22/2020 17:19 (TOBACCO SAMPLE PULLER) NAME EVELIN CANTU DATE OF : 1955 DATE OF ADMISSION: 08/20/2020 16:24 (TOBACCO SAMPLE PULLER) CHFCHIEF COMPLAINT: CHF, debility, metastatic cancer SUBJECTIVE: Pt denied any depression. Pt denied any Shortness of Breath. WBC 4.6, Hgb 16.2, PLT 144, Compo Conveyor Operator 0.71, prealbumin is very low at 4.0, glucose 95 to 164. Ambulated 1200' with rolling walker with standby assistance. VITAL SIGNS Temperature: 97.0 F SBP/DBP: 138/68 Pulse: 68 Resp: 16 MEDICATION ALLERGIES: No Known Drug Allergies (NKDA) ENVIRONMENTAL ALLERGIES: - Substance Allergies None Known - Other Allergies None Known NURSING: - Shower allowing shower ACTIVITIES OOB only with supervision THERAPIES: - Dietary and Nutrition Adequate Nutrition. Nutritional Education. Nutritional Supplements. PHYSICAL EXAM - Gen Alert and awake Lying in bed No apparent distress Oriented to: person, time, and place - Skin Dark skin discoloration of both legs consistent with lymphedema and stasis dermatitis Normacephalic - Eyes No discharge - ENMT No abnormalities - Neck No stiffness - CVS RRR - Chest Mildly decreased breath sounds bilaterally. - Abd + distended - GI + bowel sound Deferred - No abnormalities - Ext Moderate edema in both lower extremities. - MSK 4+/5 weakness in both lower extremity. - Neuro No focal deficits - Psych No abnormalities ASSESSMENT: Pt. is a 65 yo Right-handed male of unknown race.On 08/20/2020 he was admitted to [facility] with diagnosis CHF.His impairment category is Cardiac 09 - Cardiac Disorders (09).Pre-morbidly, Pt. was independent/mod-I in Balance, Safety Awareness, Self-Care, Sphincter Control, and Transfers Control; and he had good Endurance and Transfers Control.Currently, he has deficits of Endurance, Saf ety Awareness, Locomotion, Transfers Control, and Sphincter Control.Pt. is now referred to [facility] for acute in-patient rehabilitation in order to maximize patient's functional independence in activities of daily living, strength, ROM, and mobility.- Rehab Goal Patient has realistic goal of being discharged at assistance level 7-Ind to reside at Home with Pt s elf. MDM/PLAN: - Physical Therapy Gait dysfunction - to improve, our physical therapists will perform initial evaluation of pt's statu s upon admission and devise an individualized program for Gait Training, and Wheel Chair mobility Inability to transfer - to improve, our physical therapists will perform initial evaluation of pt's status upon admission and devise an individualized program for Bed mobility Need for home safety evaluation - to improve, our physical therapists will perform initial evaluatio n of pt's status upon admission and devise an individualized program for Home Evaluation Need in caregiver upon discharge - to improve, our physical therapists will perform initial evaluati on of pt's status upon admission and devise an individualized program for Caregiver Training Edema - to improve, our physical therapists will perform initial evaluation of pt's status upon admis jeffry and devise an individualized program for Elevation Training, and Lymphedema Therapy New precaution - to improve, our physical therapists will perform initial evaluation of pt's status upon admission and devise an individualized program for Patient precaution education Poor endurance - to improve, our physical therapists will perform initial evaluation of pt's status upon admission and devise an individualized program for Endurance Training Weakness - to improve, our physical therapists will perform initial evaluation of pt's status upon a dmission and devise an individualized program for Aquatic Therapy, Neuromuscular Reeducation, and Str engthening Achieving independence - to improve, our physical therapists will perform initial evaluation of pt's status upon admission and devise an individualized program for Community Reintegration Activities - Occupational Therapy Need for rn progressive care - to improve, our occupation therapists will perform initial evaluation of pt's status upon admission and devise an individualized program for Caregiver Training Weakness - to improve, our occupation therapists will perform initial evaluation of pt's status upon admission and devise an individualized program for Aquatic Therapy, Balance, Endurance, UE ROM, and UE strengthening - Other See attached MAR (Medication Administration Record) - Diet Type Continue Regular - Diet - Liquid Texture Continue Regular - Tube Feed Continue N/A - Diet - Solid Texture Continue Regular - Shower allowing shower FUNCTIONAL STATUS: UPDATED AT WEEKLY TEAM CONFERENCE - Bladder Same accident frequency: 7-Ind - No accidents in the past 7 days - Bowel Same accident frequency: 7-Ind - No accidents in the past 7 days - Walking Same score based on distance walked: 0(N/A) Same score based on distance walked: 1(<=50ft) - Wheelchair Same score based on distance traveled: 0(N/A) FUNCTIONAL STATUS: - Self-Care A. Eating Constance B. Grooming Constance C. Bathing Constance D. Dressing - Upper Constance E. Dressing - Lower sup F. Toileting sup - Sphincter Control G. Bladder control Constance H. Bowel control Constance - Transfers Control I. Bed/Chair/Wheelchair Constance J. Toilet sup K. Tub/Shower sup - Locomotion L. Walk/Wheelchair (B) sup M. Stairs ADNO - Communication N. Comprehension (B) Constance O. Expression (B) Constance - Social Cognition P. Social Interaction Ind Q. Problem Solving Ind R. Memory Ind - Endurance Good - Balance Good - Safety Awareness Good QI SCORES: - Self-Care A. Eating 06-Independent B. Oral hygiene 03-Partial/moderate assistance C. Toileting hygiene 03-Partial/moderate assistance E. Shower/bathe self 03-Partial/moderate assistance F. Upper body dressing 03-Partial/moderate assistance G. Lower body dressing 03-Partial/moderate assistance H. Putting on/taking off footwear 06-Independent - Mobility A. Roll left and right 04-Supervision or touching assistance B. Sit to lying 06-Independent C. Lying to sitting on side of bed 03-Partial/moderate assistance D. Sit to stand 03-Partial/moderate assistance E. Chair/bce-xy-wfjbp transfer 03-Partial/moderate assistance F. Toilet transfer 03-Partial/moderate assistance G. Car transfer 03-Partial/moderate assistance I. Walk 10 feet 03-Partial/moderate assistance J. Walk 50 feet with two turns 88-Not attempted due to medical condition or safety concerns K. Walk 150 feet 88-Not attempted due to medical condition or safety concerns L. Walking 10 feet on uneven surfaces 03-Partial/moderate assistance M. 1 step (curb) 88-Not attempted due to medical condition or safety concerns N. 4 steps 88-Not attempted due to medical condition or safety concerns O. 12 steps 03-Partial/moderate assistance P. Picking up object 04-Supervision or touching assistance R. Wheel 50 feet with two turns 88-Not attempted due to medical condition or safety concerns S. Wheel 150 feet 88-Not attempted due to medical condition or safety concerns - Bladder and Bowel Bladder continence Bowel continence - Endurance Fair - Balance Fair - Safety Awareness Fair CURRENT [facility]. DEFICITS: Mobility, Endurance, Balance, Safety Awareness, and Self-Care SIGNATURE PANEL: (TOBACCO SAMPLE PULLER)
[2020-08-23] MEDS: METOPROLOL XL 50 MG TAB PO SCH ×2 (05:12→17:31)
[2020-08-23 05:59] LABS: Absolute Lymphocytes (CBC) 0.6 K/uL (0.7-4.9); Basophils % 0.8 % (0-1.3); Hematocrit 51.1 % (39.6-49.0); Lymphocytes % 11.4 % (15.3-44.8); MPV 8.5 fL (7.6-11.3); RBC Red Blood Cell Count 7.55 M/uL (4.33-5.43)
[2020-08-23 06:17] LABS: Albumin 1.8 g/dL (3.4-5.0); BUN Blood Urea Nitrogen 13 mg/dL (7-18); Bicarbonate 25 mmol/L (21-32); Glucose Level 93 mg/dL (74-106); Magnesium 1.5 mg/dL (1.8-2.4); Potassium 3.8 mmol/L (3.5-5.1); Prealbumin 4.3 mg/dL (20-40); Sodium Level 137 mmol/L (136-145)
[2020-08-23] MEDS: COLLAGENASE 30 GM OINTMENT TOP SCH (08:06)
[2020-08-23] MEDS: APIXABAN 2.5 MG TABLET PO SCH ×2 (08:06→19:27)
[2020-08-23] MEDS: ASPIRIN 81 MG CHEWABLE TABLET PO SCH (08:06)
[2020-08-23] MEDS: LACTOBACILLUS/ACIDOPHILUS TAB PO SCH ×3 (08:07→19:27)
[2020-08-23] MEDS: predniSONE 20 MG TAB PO SCH (08:07)
[2020-08-23] MEDS: lisinopriL 5 MG TAB PO SCH ×2 (08:07→19:28)
[2020-08-23] MEDS: ACETAMINOPHEN 500 MG TAB PO PRN ×2 (08:07→19:36)
[2020-08-23] MEDS: FUROSEMIDE 40 MG TABLET PO SCH (08:07)
[2020-08-23] MEDS: POTASSIUM 25 MEQ EFFERV TAB PO SCH (08:07)
[2020-08-23] MEDS: MAGNESIUM OXIDE 400 MG TAB PO SCH ×2 (08:53→19:27)
[2020-08-23] MEDS: LOPERAMIDE HCL 2 MG CAPSULE PO PRN ×2 (09:08→19:27)
[2020-08-23] MEDS ORDERED: MAGNESIUM OXIDE 400 MG TAB PO ONE (09:20)
[2020-08-23] MEDS: JUVEN PACKET PO SCH ×2 (09:33→19:27)
[2020-08-23 11:38] LABS: C.diff Antigen/Toxin Ag neg : Tox neg (NEG : NEG)
--- NOTE | 2020-08-23 17:36 | R.PN ---
PROGRESS NOTES ENCOUNTER DATE AND TIME: 08/23/2020 17:28 (PICKLE SOLUTION MAKER) NAME EVELIN CANTU DATE OF : 1955 DATE OF ADMISSION: 08/20/2020 16:24 (PICKLE SOLUTION MAKER) CHFCHIEF COMPLAINT: CHF, debility, metastatic cancer SUBJECTIVE: Pt denied any depression. Pt denied any Shortness of Breath. WBC 5.2, Hgb 15.8, PLT 161, Bung Driver 0.63, prealbumin is very low at 4.3, glucose 93 to 144. Ambulated 1450' with rolling walker and independence. VITAL SIGNS Temperature: 97.0 F SBP/DBP: 121/71 Pulse: 70 Resp: 16 MEDICATION ALLERGIES: No Known Drug Allergies (NKDA) ENVIRONMENTAL ALLERGIES: - Substance Allergies None Known - Other Allergies None Known NURSING: - Shower allowing shower ACTIVITIES OOB only with supervision THERAPIES: - Dietary and Nutrition Adequate Nutrition. Nutritional Education. Nutritional Supplements. PHYSICAL EXAM - Gen Alert and awake Lying in bed No apparent distress Oriented to: person, time, and place - Skin Dark skin discoloration of both legs consistent with lymphedema and stasis dermatitis Normacephalic - Eyes No discharge - ENMT No abnormalities - Neck No stiffness - CVS RRR - Chest Mildly decreased breath sounds bilaterally. - Abd + distended - GI + bowel sound Deferred - No abnormalities - Ext Moderate edema in both lower extremities. - MSK 4+/5 weakness in both lower extremity. - Neuro No focal deficits - Psych No abnormalities ASSESSMENT: Pt. is a 65 yo Right-handed male of unknown race.On 08/20/2020 he was admitted to [facility] with diagnosis CHF.His impairment category is Cardiac 09 - Cardiac Disorders (09).Pre-morbidly, Pt. was independent/mod-I in Balance, Safety Awareness, Self-Care, Sphincter Control, and Transfers Control; and he had good Endurance and Transfers Control.Currently, he has deficits of Endurance, Saf ety Awareness, Locomotion, Transfers Control, and Sphincter Control.Pt. is now referred to [facility] for acute in-patient rehabilitation in order to maximize patient's functional independence in activities of daily living, strength, ROM, and mobility.- Rehab Goal Patient has realistic goal of being discharged at assistance level 7-Ind to reside at Home with Pt s elf. MDM/PLAN: - Physical Therapy Gait dysfunction - to improve, our physical therapists will perform initial evaluation of pt's statu s upon admission and devise an individualized program for Gait Training, and Wheel Chair mobility Inability to transfer - to improve, our physical therapists will perform initial evaluation of pt's status upon admission and devise an individualized program for Bed mobility Need for home safety evaluation - to improve, our physical therapists will perform initial evaluatio n of pt's status upon admission and devise an individualized program for Home Evaluation Need in caregiver upon discharge - to improve, our physical therapists will perform initial evaluati on of pt's status upon admission and devise an individualized program for Caregiver Training Edema - to improve, our physical therapists will perform initial evaluation of pt's status upon admi ssion and devise an individualized program for Elevation Training, and Lymphedema Therapy New precaution - to improve, our physical therapists will perform initial evaluation of pt's status upon admission and devise an individualized program for Patient precaution education Poor endurance - to improve, our physical therapists will perform initial evaluation of pt's status upon admission and devise an individualized program for Endurance Training Weakness - to improve, our physical therapists will perform initial evaluation of pt's status upon a dmission and devise an individualized program for Aquatic Therapy, Neuromuscular Reeducation, and Str engthening Achieving independence - to improve, our physical therapists will perform initial evaluation of pt's status upon admission and devise an individualized program for Community Reintegration Activities - Occupational Therapy Need for hearing care practitioner - to improve, our occupation therapists will perform initial evaluation of pt's status upon admission and devise an individualized program for Caregiver Training Weakness - to improve, our occupation therapists will perform initial evaluation of pt's status upon admission and devise an individualized program for Aquatic Therapy, Balance, Endurance, UE ROM, and UE strengthening - Other See attached MAR (Medication Administration Record) - Diet Type Continue Regular - Diet - Liquid Texture Continue Regular - Tube Feed Continue N/A - Diet - Solid Texture Continue Regular - Shower allowing shower FUNCTIONAL STATUS: UPDATED AT WEEKLY TEAM CONFERENCE - Bladder Same accident frequency: 7-Ind - No accidents in the past 7 days - Bowel Same accident frequency: 7-Ind - No accidents in the past 7 days - Walking Same score based on distance walked: 0(N/A) Same score based on distance walked: 1(<=50ft) - Wheelchair Same score based on distance traveled: 0(N/A) FUNCTIONAL STATUS: - Self-Care A. Eating Constance B. Grooming Constance C. Bathing Constance D. Dressing - Upper Constance E. Dressing - Lower sup F. Toileting sup - Sphincter Control G. Bladder control Constance H. Bowel control Constance - Transfers Control I. Bed/Chair/Wheelchair Constance J. Toilet sup K. Tub/Shower sup - Locomotion L. Walk/Wheelchair (B) sup M. Stairs ADNO - Communication N. Comprehension (B) Constance O. Expression (B) Constance - Social Cognition P. Social Interaction Ind Q. Problem Solving Ind R. Memory Ind - Endurance Good - Balance Good - Safety Awareness Good QI SCORES: - Self-Care A. Eating 06-Independent B. Oral hygiene 03-Partial/moderate assistance C. Toileting hygiene 03-Partial/moderate assistance E. Shower/bathe self 03-Partial/moderate assistance F. Upper body dressing 03-Partial/moderate assistance G. Lower body dressing 03-Partial/moderate assistance H. Putting on/taking off footwear 06-Independent - Mobility A. Roll left and right 04-Supervision or touching assistance B. Sit to lying 06-Independent C. Lying to sitting on side of bed 03-Partial/moderate assistance D. Sit to stand 03-Partial/moderate assistance E. Chair/[id number]-htdbp transfer 03-Partial/moderate assistance F. Toilet transfer 03-Partial/moderate assistance G. Car transfer 03-Partial/moderate assistance I. Walk 10 feet 03-Partial/moderate assistance J. Walk 50 feet with two turns 88-Not attempted due to medical condition or safety concerns K. Walk 150 feet 88-Not attempted due to medical condition or safety concerns L. Walking 10 feet on uneven surfaces 03-Partial/moderate assistance M. 1 step (curb) 88-Not attempted due to medical condition or safety concerns N. 4 steps 88-Not attempted due to medical condition or safety concerns O. 12 steps 03-Partial/moderate assistance P. Picking up object 04-Supervision or touching assistance R. Wheel 50 feet with two turns 88-Not attempted due to medical condition or safety concerns S. Wheel 150 feet 88-Not attempted due to medical condition or safety concerns - Bladder and Bowel Bladder continence Bowel continence - Endurance Fair - Balance Fair - Safety Awareness Fair CURRENT FUNC. DEFICITS: Mobility, Endurance, Balance, Safety Awareness, and Self-Care SIGNATURE PANEL: (PICKLE SOLUTION MAKER)
[2020-08-23] MEDS: ATORVASTATIN 40 MG TAB PO SCH (19:27)
[2020-08-23] MEDS: MELATONIN 3 MG TABLET PO PRN (19:28)
[2020-08-24] MEDS: METOPROLOL XL 50 MG TAB PO SCH ×2 (05:10→17:10)
[2020-08-24] MEDS: MAGNESIUM OXIDE 400 MG TAB PO SCH ×2 (08:00→19:44)
[2020-08-24] MEDS: POTASSIUM 25 MEQ EFFERV TAB PO SCH (08:01)
[2020-08-24] MEDS: predniSONE 20 MG TAB PO SCH (08:01)
[2020-08-24] MEDS: JUVEN PACKET PO SCH ×4 (08:01→19:58)
[2020-08-24] MEDS: FUROSEMIDE 40 MG TABLET PO SCH (08:02)
[2020-08-24] MEDS: APIXABAN 2.5 MG TABLET PO SCH ×2 (08:02→19:43)
[2020-08-24] MEDS: LACTOBACILLUS/ACIDOPHILUS TAB PO SCH ×3 (08:02→19:43)
[2020-08-24] MEDS: ASPIRIN 81 MG CHEWABLE TABLET PO SCH (08:02)
[2020-08-24] MEDS: lisinopriL 5 MG TAB PO SCH ×2 (08:02→19:42)
[2020-08-24] MEDS: COLLAGENASE 30 GM OINTMENT TOP SCH (08:44)
--- NOTE | 2020-08-24 09:53 | P.RH.PN ---
Estimated Length of Stay: 9 Expected Discharge Date: 08/28/20 Discharge Disposition Plan: Home Family Support: Yes Scientific Process Operator Goal: Mobility, Transfers, Self Care Vital Signs: Last Vital Signs Temp 96.9 F 08/24/20 07:05 Pulse 73 08/24/20 08:02 Resp 18 08/24/20 07:05 BP 120/70 08/24/20 08:02 Pulse Ox 98 08/24/20 07:05 Laboratory: Laboratory Last Values WBC 5.20 K/uL (4.3-10.9) 08/23/20 05:43 RBC 7.55 M/uL (4.33-5.43) H 08/23/20 05:43 Hgb 15.8 g/dL (13.6-17.9) 08/23/20 05:43 Hct 51.1 % (39.6-49.0) H 08/23/20 05:43 MCV 67.6 fL (80-100) L 08/23/20 05:43 MCH 21.0 pg (27.0-35.0) L 08/23/20 05:43 MCHC 31.0 g/dL (32.0-36.0) L 08/23/20 05:43 RDW 27.9 % (12.1-15.2) H 08/23/20 05:43 Plt Count 161 K/uL (152-406) 08/23/20 05:43 MPV 8.5 fL (7.6-11.3) 08/23/20 05:43 Neutrophils % 66.1 % (41.7-73.7) 08/23/20 05:43 Lymphocytes % 11.4 % (15.3-44.8) L 08/23/20 05:43 Monocytes % 20.0 % (3.3-12.3) H 08/23/20 05:43 Eosinophils % 1.7 % (0-4.4) 08/23/20 05:43 Basophils % 0.8 % (0-1.3) 08/23/20 05:43 Absolute Neutrophils 3.4 K/uL (1.8-8.0) 08/23/20 05:43 Segmented Neutrophils 78 % (40-80) 08/21/20 06:08 Band Neutrophils 3 % (0-1) H 08/21/20 06:08 Absolute Lymphocytes 0.6 K/uL (0.7-4.9) L 08/23/20 05:43 Lymphocytes 10 % (15-42) L 08/21/20 06:08 Monocytes 8 % (0-10) 08/21/20 06:08 Absolute Monocytes 1.0 K/uL (0.1-1.3) 08/23/20 05:43 Eosinophils 1 % (0-3) 08/21/20 06:08 Absolute Eosinophils 0.1 K/uL (0-0.5) 08/23/20 05:43 Absolute Basophils 0.0 K/uL (0-0.5) 08/23/20 05:43 Platelet Estimate Adeq 08/21/20 06:08 Polychromasia Slight 08/21/20 06:08 Hypochromasia 1+ 08/21/20 06:08 Poikilocytosis 2+ 08/21/20 06:08 Anisocytosis 2+ 08/21/20 06:08 Microcytosis 1+ 08/21/20 06:08 Target Cells Few 08/21/20 06:08 Morphology Comment Noted (NOT SEEN) 08/21/20 06:08 Sodium 137 mmol/L (136-145) 08/23/20 05:43 Potassium 3.8 mmol/L (3.5-5.1) 08/23/20 05:43 Chloride 106 mmol/L (98-107) 08/23/20 05:43 Carbon Dioxide 25 mmol/L (21-32) 08/23/20 05:43 BUN 13 mg/dL (7-18) 08/23/20 05:43 Creatinine 0.63 mg/dL (0.55-1.3) 08/23/20 05:43 Estimated GFR > 90 mL/min (=/>90) 08/23/20 05:43 Glucose 93 mg/dL (74-106) 08/23/20 05:43 POC Glucose 126 mg/dL (65-120) H 08/24/20 08:02 Calcium 7.5 mg/dL (8.5-10.1) L 08/23/20 05:43 Magnesium 1.5 mg/dL (1.8-2.4) L 08/23/20 05:43 Albumin 1.8 g/dL (3.4-5.0) L 08/23/20 05:43 Prealbumin 4.3 mg/dL (20-40) L 08/23/20 05:43 Urine Color Dk yellow 08/21/20 12:05 Urine Appearance Clear 08/21/20 12:05 Urine pH 5.5 (5.0-7.0) 08/21/20 12:05 Ur Specific [place] >=1.030 (1.005-1.030) 08/21/20 12:05 Glucose (UA)(Auto) Negative (NEG) 08/21/20 12:05 Urine Ketones Negative (NEG) 08/21/20 12:05 Urine Blood Negative (NEG) 08/21/20 12:05 Urine Nitrite Negative (NEG) 08/21/20 12:05 Urine Bilirubin 1+ (NEG) H 08/21/20 12:05 Urine Urobilinogen 1.0 mg/dL (0.2-1.0) 08/21/20 12:05 Ur Leukocyte Esterase Negative (NEG) 08/21/20 12:05 Urine RBC <5 /HPF (NONE SEEN) 08/21/20 12:05 Urine WBC <5 /HPF (<5) 08/21/20 12:05 Ur Squamous Epith Cells <5 /HPF (NONE SEEN) 08/21/20 12:05 Ur Urothelial Cells Cancelled 08/20/20 18:15 Calcium Oxalate Crystal Cancelled 08/20/20 18:15 Uric Acid Crystals Cancelled 08/20/20 18:15 Triple Phos Crystals Cancelled 08/20/20 18:15 Other Crystals Cancelled 08/20/20 18:15 Amorphous Sediment Cancelled 08/20/20 18:15 Glitter Cells Cancelled 08/20/20 18:15 Urine Bacteria <20 /HPF (NONE SEEN) 08/21/20 12:05 Hyaline Casts Cancelled 08/20/20 18:15 Fine Granular Casts Cancelled 08/20/20 18:15 Coarse Granular Casts Cancelled 08/20/20 18:15 Waxy Casts Cancelled 08/20/20 18:15 RBC Casts Cancelled 08/20/20 18:15 WBC Casts Cancelled 08/20/20 18:15 Urine Mucus Cancelled 08/20/20 18:15 Urine Other Cancelled 08/20/20 18:15 Urine Trichomonas Cancelled 08/20/20 18:15 Urine Yeast Cancelled 08/20/20 18:15 Ur Yeast w Hyphae Cancelled 08/20/20 18:15 Urine Yeast (Budding) Cancelled 08/20/20 18:15 Urine Sperm Cancelled 08/20/20 18:15 Urine Culture Reflexed Not needed 08/21/20 12:05 Urine Total Volume Cancelled 08/20/20 18:15 Urine Total Protein Trace (NEG) 08/21/20 12:05 C. difficile Ag & Toxin Ag neg : tox neg (NEG : NEG) 08/22/20 19:00 Weight: 196 lb 6.4 oz Wound Present: Yes Closed Surgical Incision Present: No Negative Pressure Wound Therapy Present: No Physician Update: He is at standby assistance with occupational therapy. He needs energy conservation training. He is at independence walking 1000' with independence. Labs reviewed and are stable. Functional Improvement: pt has demonstrated consistent progress and is on track to meeting his goals. pt is able to safely ambulate and perform functional transfers well. pt does rapidly fatigue and is unable to perform sit <-> stand without help after about 6-8 consecutive transfers. Efforts to improve tolerance to continued activity will be made. Summary: Patient's care plan and senior care goals have been reviewed and revised as necessary. Please see the Rehabilitation Signature page for all necessary signatures.
[2020-08-24] MEDS: ATORVASTATIN 40 MG TAB PO SCH (19:43)
[2020-08-25] MEDS: METOPROLOL XL 50 MG TAB PO SCH ×2 (05:01→17:01)
[2020-08-25 06:25] LABS: BUN Blood Urea Nitrogen 33 mg/dL (7-18); Bicarbonate 26 mmol/L (21-32); Glucose Level 118 mg/dL (74-106); Potassium 4.6 mmol/L (3.5-5.1); Sodium Level 135 mmol/L (136-145)
[2020-08-25] MEDS: JUVEN PACKET PO SCH ×4 (08:00→19:11)
[2020-08-25] MEDS: POTASSIUM 25 MEQ EFFERV TAB PO SCH (08:42)
[2020-08-25] MEDS: LACTOBACILLUS/ACIDOPHILUS TAB PO SCH ×3 (08:42→19:13)
[2020-08-25] MEDS: ASPIRIN 81 MG CHEWABLE TABLET PO SCH (08:42)
[2020-08-25] MEDS: APIXABAN 2.5 MG TABLET PO SCH ×2 (08:42→19:12)
[2020-08-25] MEDS: lisinopriL 5 MG TAB PO SCH ×2 (08:42→19:12)
[2020-08-25] MEDS: FUROSEMIDE 40 MG TABLET PO SCH (08:42)
[2020-08-25] MEDS: predniSONE 20 MG TAB PO SCH (08:43)
[2020-08-25] MEDS: MAGNESIUM OXIDE 400 MG TAB PO SCH ×2 (08:43→19:13)
[2020-08-25] MEDS: LOPERAMIDE HCL 2 MG CAPSULE PO PRN ×2 (08:45→15:03)
[2020-08-25] MEDS: COLLAGENASE 30 GM OINTMENT TOP SCH (09:39)
--- NOTE | 2020-08-25 15:51 | FAST ---
[employer]ITY [employer] FORM SHIFT START DATE/TIME: 08/25/2020 07:00 (GLOBE CLEANER) SHIFT END DATE/TIME: 08/25/2020 19:00 (GLOBE CLEANER) NAME EVELIN CANTU DATE OF : 1955 DATE OF ADMISSION: 08/20/2020 16:24 (GLOBE CLEANER) PHONE: AGE: 65 N# [id number] GENDER: Male ENCOUNTER PHYSICIAN: Dr. Lonny Hernandez M.D. ADMISSION DIAGNOSIS: - Cardiac 09 - Cardiac Disorders () CHF. EATING: EATING - STEP 1: Does the patient complete the activity by him/herself with no assistance (physical, verbal/nonverbal cueing, setup/clean-up)? No. EATING - STEP 2: Does the patient need only setup/clean-up assistance from one helper? Yes. 1. [id number] ADMISSION PERFORMANCE: Setup or clean-up assistance CODE: 05 ORAL HYGIENE: ORAL HYGIENE - STEP 1: Does the patient complete the activity by him/herself with no assistance (physical, verbal/nonverbal cueing, setup/clean-up)? Yes. 1. [id number] ADMISSION PERFORMANCE: Independent CODE: 06 TOILETING HYGIENE: TOILETING HYGIENE - STEP 1: Does the patient complete the activity by him/herself with no assistance (physical, verbal/nonverbal cueing, setup/clean-up)? Yes. 1. [id number] ADMISSION PERFORMANCE: Independent CODE: 06 BATHING: Not assessed/no information CODE: - DRESSING - UPPER BODY: DRESSING - UPPER BODY - STEP 1: Does the patient complete the activity by him/herself with no assistance (physical, verbal/nonverbal cueing, setup/clean-up)? Yes. 1. [id number] ADMISSION PERFORMANCE: Independent CODE: 06 DRESSING - LOWER BODY: DRESSING - LOWER BODY - STEP 1: Does the patient complete the activity by him/herself with no assistance (physical, verbal/nonverbal cueing, setup/clean-up)? Yes. 1. [id number] ADMISSION PERFORMANCE: Independent CODE: 06 PUTTING ON/TAKING OFF FOOTWEAR: FOOTWEAR - STEP 1: Does the patient complete the activity by him/herself with no assistance (physical, verbal/nonverbal cueing, setup/clean-up)? Yes. 1. [id number] ADMISSION PERFORMANCE: Independent CODE: 06 ROLL LEFT AND RIGHT: ROLL LEFT AND RIGHT - STEP 1: Does the patient complete the activity by him/herself with no assistance (physical, verbal/nonverbal cueing, setup/clean-up)? Yes. 1. [id number] ADMISSION PERFORMANCE: Independent CODE: 06 SIT TO LYING: SIT TO LYING - STEP 1: Does the patient complete the activity by him/herself with no assistance (physical, verbal/nonverbal cueing, setup/clean-up)? Yes. 1. [id number] ADMISSION PERFORMANCE: Independent CODE: 06 LYING TO SITTING: LYING TO SITTING ON SIDE OF BED - STEP 1: Does the patient complete the activity by him/herself with no assistance (physical, verbal/nonverbal cueing, setup/clean-up)? Yes. 1. [id number] ADMISSION PERFORMANCE: Independent CODE: 06 SIT TO STAND: SIT TO STAND - STEP 1: Does the patient complete the activity by him/herself with no assistance (physical, verbal/nonverbal cueing, setup/clean-up)? Yes. 1. [id number] ADMISSION PERFORMANCE: Independent CODE: 06 TRANSFERS: BED, CHAIR: CHAIR/TRD-MN-EQDCM TRANSFER - STEP 1: Does the patient complete the activity by him/herself with no assistance (physical, verbal/nonverbal cueing, setup/clean-up)? Yes. 1. [id number] ADMISSION PERFORMANCE: Independent CODE: 06 TRANSFER TOILET: TOILET TRANSFER - STEP 1: Does the patient complete the activity by him/herself with no assistance (physical, verbal/nonverbal cueing, setup/clean-up)? Yes. 1. [id number] ADMISSION PERFORMANCE: Independent CODE: 06 TRANSFERS: CAR: Not assessed/no information CODE: - WALK 10 FEET: Not assessed/no information CODE: - 1 STEP (CURB): Not assessed/no information CODE: - PICKING UP OBJECT: Not assessed/no information CODE: - DOES THE PATIENT USE A WHEELCHAIR/SCOOTER? Q1. DOES THE PATIENT USE A WHEELCHAIR/SCOOTER?: No CODE: 0 INDICATE THE TYPE OF WHEELCHAIR/SCOOTER USED: CODE: EXPR INDICATE THE TYPE OF WHEELCHAIR/SCOOTER USED: CODE: EXPR BLADDER AND BOWEL: H350. BLADDER CONTINENCE (3-DAY ASSESSMENT PERIOD): Always continent (no documented incontinence) CODE: 0 H400. BOWEL CONTINENCE (3-DAY ASSESSMENT PERIOD): Always continent CODE: 0 SIGNATURE PANEL: The following modified sections: 1. [id number] Admission Performance, 1. [id number] Admission Performance, 1. [id number] Admission Performance, 1. UV1345i Admission Performance, 1. [id number] Admission Performance, 1. [id number] Admission Performance, 1. [id number] Admission Performance, 1. [id number] Admission Performance , 1. [id number] Admission Performance, 1. [id number] Admission Performance, 1. [id number] Admission Performanc e, 1. [id number] Admission Performance, Q1. Does the patient use a wheelchair/scooter?, H350. Bladder Co ntinence (3-day assessment period), H400. Bowel Continence (3-day assessment period) were [electronic ally] signed by María Flood C.N.A. on Sat Aug 25 2020 15:50:16 GMT-0600 (Central Standard Time)
[2020-08-25] MEDS: ATORVASTATIN 40 MG TAB PO SCH (19:12)
[2020-08-26] MEDS: METOPROLOL XL 50 MG TAB PO SCH ×2 (05:43→17:11)
[2020-08-26] MEDS: JUVEN PACKET PO SCH ×3 (08:30→20:35)
[2020-08-26] MEDS: POTASSIUM 25 MEQ EFFERV TAB PO SCH (08:31)
[2020-08-26] MEDS: LOPERAMIDE HCL 2 MG CAPSULE PO PRN (08:35)
[2020-08-26] MEDS: APIXABAN 2.5 MG TABLET PO SCH ×2 (08:37→20:34)
[2020-08-26] MEDS: MAGNESIUM OXIDE 400 MG TAB PO SCH ×2 (08:37→20:35)
[2020-08-26] MEDS: LACTOBACILLUS/ACIDOPHILUS TAB PO SCH ×3 (08:37→20:34)
[2020-08-26] MEDS: ASPIRIN 81 MG CHEWABLE TABLET PO SCH (08:37)
[2020-08-26] MEDS: FUROSEMIDE 40 MG TABLET PO SCH (08:38)
[2020-08-26] MEDS: lisinopriL 5 MG TAB PO SCH ×2 (08:38→20:35)
[2020-08-26] MEDS: predniSONE 20 MG TAB PO SCH (08:39)
[2020-08-26] MEDS: COLLAGENASE 30 GM OINTMENT TOP SCH (08:40)
[2020-08-26] MEDS: ATORVASTATIN 40 MG TAB PO SCH (20:35)
[2020-08-27] MEDS: METOPROLOL XL 50 MG TAB PO SCH ×2 (05:48→16:57)
[2020-08-27 06:54] LABS: Albumin 2.2 g/dL (3.4-5.0); BUN Blood Urea Nitrogen 42 mg/dL (7-18); Bicarbonate 32 mmol/L (21-32); Glucose Level 126 mg/dL (74-106); Magnesium 2.1 mg/dL (1.8-2.4); Potassium 4.6 mmol/L (3.5-5.1); Prealbumin 9.9 mg/dL (20-40); Sodium Level 132 mmol/L (136-145)
[2020-08-27] MEDS: lisinopriL 5 MG TAB PO SCH ×2 (07:45→19:02)
[2020-08-27] MEDS: POTASSIUM 25 MEQ EFFERV TAB PO SCH (07:45)
[2020-08-27] MEDS: JUVEN PACKET PO SCH ×3 (07:45→19:03)
[2020-08-27] MEDS: predniSONE 20 MG TAB PO SCH (07:45)
[2020-08-27] MEDS: LACTOBACILLUS/ACIDOPHILUS TAB PO SCH ×3 (07:45→19:02)
[2020-08-27] MEDS: ASPIRIN 81 MG CHEWABLE TABLET PO SCH (07:46)
[2020-08-27] MEDS: FUROSEMIDE 40 MG TABLET PO SCH (07:46)
[2020-08-27] MEDS: APIXABAN 2.5 MG TABLET PO SCH ×2 (07:46→19:02)
[2020-08-27] MEDS: MAGNESIUM OXIDE 400 MG TAB PO SCH ×2 (07:47→19:02)
[2020-08-27] MEDS: COLLAGENASE 30 GM OINTMENT TOP SCH (10:00)
--- NOTE | 2020-08-27 18:12 | R.PN ---
PROGRESS NOTES ENCOUNTER DATE AND TIME: 08/27/2020 18:07 (PUMPER GAGER) NAME EVELIN CANTU DATE OF : 1955 DATE OF ADMISSION: 08/20/2020 16:24 (PUMPER GAGER) CHFCHIEF COMPLAINT: CHF, debility, metastatic cancer SUBJECTIVE: Pt denied any depression. Pt denied any Shortness of Breath. WBC 5.2, Hgb 15.8, PLT 161, Lettuce Trimmer 0.84, prealbumin improved to 9.9, glucose 126 to 139. Ambulated 650' with rolling walker and independence. VITAL SIGNS Temperature: 97.5 F SBP/DBP: 142/77 Pulse: 68 Resp: 16 MEDICATION ALLERGIES: No Known Drug Allergies (NKDA) ENVIRONMENTAL ALLERGIES: - Substance Allergies None Known - Other Allergies None Known NURSING: - Shower allowing shower ACTIVITIES OOB only with supervision THERAPIES: - Dietary and Nutrition Adequate Nutrition. Nutritional Education. Nutritional Supplements. PHYSICAL EXAM - Gen Alert and awake Lying in bed No apparent distress Oriented to: person, time, and place - Skin Dark skin discoloration of both legs consistent with lymphedema and stasis dermatitis Normacephalic - Eyes No discharge - ENMT No abnormalities - Neck No stiffness - CVS RRR - Chest Mildly decreased breath sounds bilaterally. - Abd + distended - GI + bowel sound Deferred - No abnormalities - Ext Moderate edema in both lower extremities. - MSK 4+/5 weakness in both lower extremity. - Neuro No focal deficits - Psych No abnormalities ASSESSMENT: Pt. is a 65 yo Right-handed male of unknown race.On 08/20/2020 he was admitted to [facility] with diagnosis CHF.His impairment category is Cardiac 09 - Cardiac Disorders (09).Pre-morbidly, Pt. was independent/mod-I in Balance, Safety Awareness, Self-Care, Sphincter Control, and Transfers Control; and he had good Endurance and Transfers Control.Currently, he has deficits of Endurance, Saf ety Awareness, Locomotion, Transfers Control, and Sphincter Control.Pt. is now referred to [facility] for acute in-patient rehabilitation in order to maximize patient's functional independence in activities of daily living, strength, ROM, and mobility.- Rehab Goal Patient has realistic goal of being discharged at assistance level 7-Ind to reside at Home with Pt s elf. MDM/PLAN: - Physical Therapy Gait dysfunction - to improve, our physical therapists will perform initial evaluation of pt's statu s upon admission and devise an individualized program for Gait Training, and Wheel Chair mobility Inability to transfer - to improve, our physical therapists will perform initial evaluation of pt's status upon admission and devise an individualized program for Bed mobility Need for home safety evaluation - to improve, our physical therapists will perform initial evaluatio n of pt's status upon admission and devise an individualized program for Home Evaluation Need in caregiver upon discharge - to improve, our physical therapists will perform initial evaluati on of pt's status upon admission and devise an individualized program for Caregiver Training Edema - to improve, our physical therapists will perform initial evaluation of pt's status upon admi ssion and devise an individualized program for Elevation Training, and Lymphedema Therapy New precaution - to improve, our physical therapists will perform initial evaluation of pt's status upon admission and devise an individualized program for Patient precaution education Poor endurance - to improve, our physical therapists will perform initial evaluation of pt's status upon admission and devise an individualized program for Endurance Training Weakness - to improve, our physical therapists will perform initial evaluation of pt's status upon a dmission and devise an individualized program for Aquatic Therapy, Neuromuscular Reeducation, and Str engthening Achieving independence - to improve, our physical therapists will perform initial evaluation of pt's status upon admission and devise an individualized program for Community Reintegration Activities - Occupational Therapy Need for restorative care technician - to improve, our occupation therapists will perform initial evaluation of pt's status upon admission and devise an individualized program for Caregiver Training Weakness - to improve, our occupation therapists will perform initial evaluation of pt's status upon admission and devise an individualized program for Aquatic Therapy, Balance, Endurance, UE ROM, and UE strengthening - Other See attached MAR (Medication Administration Record) - Diet Type Continue Regular - Diet - Liquid Texture Continue Regular - Tube Feed Continue N/A - Diet - Solid Texture Continue Regular - Shower allowing shower FUNCTIONAL STATUS: UPDATED AT WEEKLY TEAM CONFERENCE - Bladder Same accident frequency: 7-Ind - No accidents in the past 7 days - Bowel Same accident frequency: 7-Ind - No accidents in the past 7 days - Walking Same score based on distance walked: 0(N/A) Same score based on distance walked: 1(<=50ft) - Wheelchair Same score based on distance traveled: 0(N/A) FUNCTIONAL STATUS: - Self-Care A. Eating Constance B. Grooming Constance C. Bathing Constance D. Dressing - Upper Constance E. Dressing - Lower sup F. Toileting sup - Sphincter Control G. Bladder control Constance H. Bowel control Constance - Transfers Control I. Bed/Chair/Wheelchair Constance J. Toilet sup K. Tub/Shower sup - Locomotion L. Walk/Wheelchair (B) sup M. Stairs ADNO - Communication N. Comprehension (B) Constance O. Expression (B) Constance - Social Cognition P. Social Interaction Ind Q. Problem Solving Ind R. Memory Ind - Endurance Good - Balance Good - Safety Awareness Good QI SCORES: - Self-Care A. Eating 06-Independent B. Oral hygiene 03-Partial/moderate assistance C. Toileting hygiene 03-Partial/moderate assistance E. Shower/bathe self 03-Partial/moderate assistance F. Upper body dressing 03-Partial/moderate assistance G. Lower body dressing 03-Partial/moderate assistance H. Putting on/taking off footwear 06-Independent - Mobility A. Roll left and right 04-Supervision or touching assistance B. Sit to lying 06-Independent C. Lying to sitting on side of bed 03-Partial/moderate assistance D. Sit to stand 03-Partial/moderate assistance E. Chair/paf-ra-[id number] transfer 03-Partial/moderate assistance F. Toilet transfer 03-Partial/moderate assistance G. Car transfer 03-Partial/moderate assistance I. Walk 10 feet 03-Partial/moderate assistance J. Walk 50 feet with two turns 88-Not attempted due to medical condition or safety concerns K. Walk 150 feet 88-Not attempted due to medical condition or safety concerns L. Walking 10 feet on uneven surfaces 03-Partial/moderate assistance M. 1 step (curb) 88-Not attempted due to medical condition or safety concerns N. 4 steps 88-Not attempted due to medical condition or safety concerns O. 12 steps 03-Partial/moderate assistance P. Picking up object 04-Supervision or touching assistance R. Wheel 50 feet with two turns 88-Not attempted due to medical condition or safety concerns S. Wheel 150 feet 88-Not attempted due to medical condition or safety concerns - Bladder and Bowel Bladder continence Bowel continence - Endurance Fair - Balance Fair - Safety Awareness Fair CURRENT [facility]. DEFICITS: Mobility, Endurance, Balance, Safety Awareness, and Self-Care SIGNATURE PANEL: (PUMPER GAGER)
[2020-08-27] MEDS: ATORVASTATIN 40 MG TAB PO SCH (19:02)
[2020-08-27] MEDS: NYSTATIN PWDR 100000 UNIT/GM TOP SCH (19:02)
[2020-08-27] MEDS: MELATONIN 3 MG TABLET PO PRN (19:03)
[2020-08-28] MEDS: METOPROLOL XL 50 MG TAB PO SCH ×2 (05:29→17:09)
[2020-08-28 07:09] VITALS: TEMP 97.3
[2020-08-28] MEDS: NYSTATIN PWDR 100000 UNIT/GM TOP SCH (07:40)
[2020-08-28] MEDS: COLLAGENASE 30 GM OINTMENT TOP SCH (07:40)
[2020-08-28] MEDS: JUVEN PACKET PO SCH ×2 (07:40→14:27)
[2020-08-28] MEDS: lisinopriL 5 MG TAB PO SCH (07:41)
[2020-08-28] MEDS: LACTOBACILLUS/ACIDOPHILUS TAB PO SCH ×2 (07:41→14:27)
[2020-08-28] MEDS: APIXABAN 2.5 MG TABLET PO SCH (07:41)
[2020-08-28] MEDS: POTASSIUM 25 MEQ EFFERV TAB PO SCH (07:42)
[2020-08-28] MEDS: FUROSEMIDE 40 MG TABLET PO SCH (07:42)
[2020-08-28] MEDS: MAGNESIUM OXIDE 400 MG TAB PO SCH (07:42)
[2020-08-28] MEDS: ASPIRIN 81 MG CHEWABLE TABLET PO SCH (07:42)
[2020-08-28] MEDS: predniSONE 20 MG TAB PO SCH (07:42)
[2020-08-28 17:10] VITALS: BP 128/66
--- NOTE | 2020-08-28 17:23 | R.PN ---
PROGRESS NOTES ENCOUNTER DATE AND TIME: 08/28/2020 17:19 (CERTIFIED LOW VISION THERAPIST) NAME EVELIN CANTU DATE OF : 1955 DATE OF ADMISSION: 08/20/2020 16:24 (CERTIFIED LOW VISION THERAPIST) CHFCHIEF COMPLAINT: CHF, debility, metastatic cancer SUBJECTIVE: Pt denied any depression. Pt denied any Shortness of Breath. WBC 5.2, Hgb 15.8, PLT 161, Delinquent Tax Collector 0.84, prealbumin improved to 9.9, glucose 126 to 272. Ambulated 750' with rolling walker and independence. He will be discharged today with continued physical therapy. VITAL SIGNS Temperature: 97.3 F SBP/DBP: 128/66 Pulse: 62 Resp: 16 MEDICATION ALLERGIES: No Known Drug Allergies (NKDA) ENVIRONMENTAL ALLERGIES: - Substance Allergies None Known - Other Allergies None Known NURSING: - Shower allowing shower ACTIVITIES OOB only with supervision THERAPIES: - Dietary and Nutrition Adequate Nutrition. Nutritional Education. Nutritional Supplements. PHYSICAL EXAM - Gen Alert and awake Lying in bed No apparent distress Oriented to: person, time, and place - Skin Dark skin discoloration of both legs consistent with lymphedema and stasis dermatitis Normacephalic - Eyes No discharge - ENMT No abnormalities - Neck No stiffness - CVS RRR - Chest Mildly decreased breath sounds bilaterally. - Abd + distended - GI + bowel sound Deferred - No abnormalities - Ext Moderate edema in both lower extremities. - MSK 4+/5 weakness in both lower extremity. - Neuro No focal deficits - Psych No abnormalities ASSESSMENT: Pt. is a 65 yo Right-handed male of unknown race.On 08/20/2020 he was admitted to [facility] with diagnosis CHF.His impairment category is Cardiac 09 - Cardiac Disorders (09).Pre-morbidly, Pt. was independent/mod-I in Balance, Safety Awareness, Self-Care, Sphincter Control, and Transfers Control; and he had good Endurance and Transfers Control.Currently, he has deficits of Endurance, Saf ety Awareness, Locomotion, Transfers Control, and Sphincter Control.Pt. is now referred to [facility] for acute in-patient rehabilitation in order to maximize patient's functional independence in activities of daily living, strength, ROM, and mobility.- Rehab Goal Patient has realistic goal of being discharged at assistance level 7-Ind to reside at Home with Pt s elf. MDM/PLAN: - Physical Therapy Gait dysfunction - to improve, our physical therapists will perform initial evaluation of pt's statu s upon admission and devise an individualized program for Gait Training, and Wheel Chair mobility Inability to transfer - to improve, our physical therapists will perform initial evaluation of pt's status upon admission and devise an individualized program for Bed mobility Need for home safety evaluation - to improve, our physical therapists will perform initial evaluatio n of pt's status upon admission and devise an individualized program for Home Evaluation Need in caregiver upon discharge - to improve, our physical therapists will perform initial evaluati on of pt's status upon admission and devise an individualized program for Caregiver Training Edema - to improve, our physical therapists will perform initial evaluation of pt's status upon admi ssion and devise an individualized program for Elevation Training, and Lymphedema Therapy New precaution - to improve, our physical therapists will perform initial evaluation of pt's status upon admission and devise an individualized program for Patient precaution education Poor endurance - to improve, our physical therapists will perform initial evaluation of pt's status upon admission and devise an individualized program for Endurance Training Weakness - to improve, our physical therapists will perform initial evaluation of pt's status upon a dmission and devise an individualized program for Aquatic Therapy, Neuromuscular Reeducation, and Str engthening Achieving independence - to improve, our physical therapists will perform initial evaluation of pt's status upon admission and devise an individualized program for Community Reintegration Activities - Occupational Therapy Need for child care associate teacher - to improve, our occupation therapists will perform initial evaluation of pt's status upon admission and devise an individualized program for Caregiver Training Weakness - to improve, our occupation therapists will perform initial evaluation of pt's status upon admission and devise an individualized program for Aquatic Therapy, Balance, Endurance, UE ROM, and UE strengthening - Other See attached MAR (Medication Administration Record) - Diet Type Continue Regular - Diet - Liquid Texture Continue Regular - Tube Feed Continue N/A - Diet - Solid Texture Continue Regular - Shower allowing shower FUNCTIONAL STATUS: UPDATED AT WEEKLY TEAM CONFERENCE - Bladder Same accident frequency: 7-Ind - No accidents in the past 7 days - Bowel Same accident frequency: 7-Ind - No accidents in the past 7 days - Walking Same score based on distance walked: 0(N/A) Same score based on distance walked: 1(<=50ft) - Wheelchair Same score based on distance traveled: 0(N/A) FUNCTIONAL STATUS: - Self-Care A. Eating Constance B. Grooming Constance C. Bathing Constance D. Dressing - Upper Constance E. Dressing - Lower sup F. Toileting sup - Sphincter Control G. Bladder control Constance H. Bowel control Constance - Transfers Control I. Bed/Chair/Wheelchair Constance J. Toilet sup K. Tub/Shower sup - Locomotion L. Walk/Wheelchair (B) sup M. Stairs ADNO - Communication N. Comprehension (B) Constance O. Expression (B) Constance - Social Cognition P. Social Interaction Ind Q. Problem Solving Ind R. Memory Ind - Endurance Good - Balance Good - Safety Awareness Good QI SCORES: - Self-Care A. Eating 06-Independent B. Oral hygiene 03-Partial/moderate assistance C. Toileting hygiene 03-Partial/moderate assistance E. Shower/bathe self 03-Partial/moderate assistance F. Upper body dressing 03-Partial/moderate assistance G. Lower body dressing 03-Partial/moderate assistance H. Putting on/taking off footwear 06-Independent - Mobility A. Roll left and right 04-Supervision or touching assistance B. Sit to lying 06-Independent C. Lying to sitting on side of bed 03-Partial/moderate assistance D. Sit to stand 03-Partial/moderate assistance E. Chair/egg-be-nhnxk transfer 03-Partial/moderate assistance F. Toilet transfer 03-Partial/moderate assistance G. Car transfer 03-Partial/moderate assistance I. Walk 10 feet 03-Partial/moderate assistance J. Walk 50 feet with two turns 88-Not attempted due to medical condition or safety concerns K. Walk 150 feet 88-Not attempted due to medical condition or safety concerns L. Walking 10 feet on uneven surfaces 03-Partial/moderate assistance M. 1 step (curb) 88-Not attempted due to medical condition or safety concerns N. 4 steps 88-Not attempted due to medical condition or safety concerns O. 12 steps 03-Partial/moderate assistance P. Picking up object 04-Supervision or touching assistance R. Wheel 50 feet with two turns 88-Not attempted due to medical condition or safety concerns S. Wheel 150 feet 88-Not attempted due to medical condition or safety concerns - Bladder and Bowel Bladder continence Bowel continence - Endurance Fair - Balance Fair - Safety Awareness Fair [facility]RENT [facility]. DEFICITS: Mobility, Endurance, Balance, Safety Awareness, and Self-Care SIGNATURE PANEL: (CERTIFIED LOW VISION THERAPIST)
[2020-08-28] MEDS ORDERED: ENSURE HIGH PROTEIN 237 ML CAN PO SCH (20:00)
[2020-08-28] MEDS ORDERED: JUVEN PACKET PO SCH (20:00)
--- NOTE | 2020-08-31 18:27 | R.PN ---
PROGRESS NOTES ENCOUNTER DATE AND TIME: 08/29/2020 17:04 (BULK DELIVERY DRIVER) NAME EVELIN CANTU DATE OF : 1955 DATE OF ADMISSION: 08/20/2020 16:24 (BULK DELIVERY DRIVER) CHFCHIEF COMPLAINT: CHF, debility, metastatic cancer SUBJECTIVE: Pt denied any depression. Pt denied any Shortness of Breath. WBC 5.2, Hgb 15.8, PLT 161, Refrigerator Repair Technician 0.84, prealbumin improved to 9.9, glucose 126 to 272. Ambulated 750' with rolling walker and independence. He will be discharged today with continued physical therapy. VITAL SIGNS Temperature: 97.3 F SBP/DBP: 128/66 Pulse: 62 Resp: 16 MEDICATION ALLERGIES: No Known Drug Allergies (NKDA) ENVIRONMENTAL ALLERGIES: - Substance Allergies None Known - Other Allergies None Known NURSING: - Shower allowing shower ACTIVITIES OOB only with supervision THERAPIES: - Dietary and Nutrition Adequate Nutrition. Nutritional Education. Nutritional Supplements. PHYSICAL EXAM - Gen Alert and awake Lying in bed No apparent distress Oriented to: person, time, and place - Skin Dark skin discoloration of both legs consistent with lymphedema and stasis dermatitis Normacephalic - Eyes No discharge - ENMT No abnormalities - Neck No stiffness - CVS RRR - Chest Mildly decreased breath sounds bilaterally. - Abd + distended - GI + bowel sound Deferred - No abnormalities - Ext Moderate edema in both lower extremities. - MSK 4+/5 weakness in both lower extremity. - Neuro No focal deficits - Psych No abnormalities ASSESSMENT: Pt. is a 65 yo Right-handed male of unknown race.On 08/20/2020 he was admitted to [facility] with diagnosis CHF.His impairment category is Cardiac 09 - Cardiac Disorders (09).Pre-morbidly, Pt. was independent/mod-I in Balance, Safety Awareness, Self-Care, Sphincter Control, and Transfers Control; and he had good Endurance and Transfers Control.Currently, he has deficits of Endurance, Saf ety Awareness, Locomotion, Transfers Control, and Sphincter Control.Pt. is now referred to [facility] for acute in-patient rehabilitation in order to maximize patient's functional independence in activities of daily living, strength, ROM, and mobility.- Rehab Goal Patient has realistic goal of being discharged at assistance level 7-Ind to reside at Home with Pt s elf. MDM/PLAN: - Physical Therapy Gait dysfunction - to improve, our physical therapists will perform initial evaluation of pt's statu s upon admission and devise an individualized program for Gait Training, and Wheel Chair mobility Inability to transfer - to improve, our physical therapists will perform initial evaluation of pt's status upon admission and devise an individualized program for Bed mobility Need for home safety evaluation - to improve, our physical therapists will perform initial evaluatio n of pt's status upon admission and devise an individualized program for Home Evaluation Need in caregiver upon discharge - to improve, our physical therapists will perform initial evaluati on of pt's status upon admission and devise an individualized program for Caregiver Training Edema - to improve, our physical therapists will perform initial evaluation of pt's status upon admi ssion and devise an individualized program for Elevation Training, and Lymphedema Therapy New precaution - to improve, our physical therapists will perform initial evaluation of pt's status upon admission and devise an individualized program for Patient precaution education Poor endurance - to improve, our physical therapists will perform initial evaluation of pt's status upon admission and devise an individualized program for Endurance Training Weakness - to improve, our physical therapists will perform initial evaluation of pt's status upon a dmission and devise an individualized program for Aquatic Therapy, Neuromuscular Reeducation, and Str engthening Achieving independence - to improve, our physical therapists will perform initial evaluation of pt's status upon admission and devise an individualized program for Community Reintegration Activities - Occupational Therapy Need for md do resident urgent care - to improve, our occupation therapists will perform initial evaluation of pt's status upon admission and devise an individualized program for Caregiver Training Weakness - to improve, our occupation therapists will perform initial evaluation of pt's status upon admission and devise an individualized program for Aquatic Therapy, Balance, Endurance, UE ROM, and UE strengthening - Other See attached MAR (Medication Administration Record) - Diet Type Continue Regular - Diet - Liquid Texture Continue Regular - Tube Feed Continue N/A - Diet - Solid Texture Continue Regular - Shower allowing shower FUNCTIONAL STATUS: UPDATED AT WEEKLY TEAM CONFERENCE - Bladder Same accident frequency: 7-Ind - No accidents in the past 7 days - Bowel Same accident frequency: 7-Ind - No accidents in the past 7 days - Walking Same score based on distance walked: 0(N/A) Same score based on distance walked: 1(<=50ft) - Wheelchair Same score based on distance traveled: 0(N/A) FUNCTIONAL STATUS: - Self-Care A. Eating Constance B. Grooming Constance C. Bathing Constance D. Dressing - Upper Constance E. Dressing - Lower sup F. Toileting sup - Sphincter Control G. Bladder control Constance H. Bowel control Constance - Transfers Control I. Bed/Chair/Wheelchair Constance J. Toilet sup K. Tub/Shower sup - Locomotion L. Walk/Wheelchair (B) sup M. Stairs ADNO - Communication N. Comprehension (B) Constance O. Expression (B) Constance - Social Cognition P. Social Interaction Ind Q. Problem Solving Ind R. Memory Ind - Endurance Good - Balance Good - Safety Awareness Good QI SCORES: - Self-Care A. Eating 06-Independent B. Oral hygiene 03-Partial/moderate assistance C. Toileting hygiene 03-Partial/moderate assistance E. Shower/bathe self 03-Partial/moderate assistance F. Upper body dressing 03-Partial/moderate assistance G. Lower body dressing 03-Partial/moderate assistance H. Putting on/taking off footwear 06-Independent - Mobility A. Roll left and right 04-Supervision or touching assistance B. Sit to lying 06-Independent C. Lying to sitting on side of bed 03-Partial/moderate assistance D. Sit to stand 03-Partial/moderate assistance E. Chair/nhp-bq-[id number] transfer 03-Partial/moderate assistance F. Toilet transfer 03-Partial/moderate assistance G. Car transfer 03-Partial/moderate assistance I. Walk 10 feet 03-Partial/moderate assistance J. Walk 50 feet with two turns 88-Not attempted due to medical condition or safety concerns K. Walk 150 feet 88-Not attempted due to medical condition or safety concerns L. Walking 10 feet on uneven surfaces 03-Partial/moderate assistance M. 1 step (curb) 88-Not attempted due to medical condition or safety concerns N. 4 steps 88-Not attempted due to medical condition or safety concerns O. 12 steps 03-Partial/moderate assistance P. Picking up object 04-Supervision or touching assistance R. Wheel 50 feet with two turns 88-Not attempted due to medical condition or safety concerns S. Wheel 150 feet 88-Not attempted due to medical condition or safety concerns - Bladder and Bowel Bladder continence Bowel continence - Endurance Fair - Balance Fair - Safety Awareness Fair [facility] DEFICITS: Mobility, Endurance, Balance, Safety Awareness, and Self-Care SIGNATURE PANEL: (BULK DELIVERY DRIVER)
--- NOTE | 2020-08-31 18:28 | R.PREADM ---
PRE-ADMISSION SCREENING FORM SCREENING DATE AND TIME 08/20/2020 13:45 (STOCK CRANE OPERATOR) ANTICIPATED REHAB ADMISSION DATE 08/22/2020 REFERRING FACILITY [facility] REFERRAL DATE AND TIME 08/20/2020 13:45 (STOCK CRANE OPERATOR) ACUTE ADMIT DATE 08/20/2020 Previous Rehabilitation(s): No. ACUTE LEGAL BILLER/DC DRYWALL HANGER FRAMER ALLEY ATTENDING PHYSICIAN REFERRING PHYSICIAN REHAB FACILITY [facility] CLINICAL LIAISON Christ Cobian PHYSICIAN REVIEWER Dr. Lonny Hernandez M.D. MR# [id number] NAME EVELIN CANTU ADDRESS [address] PHONE [facility] [id number] DATE OF 1955 AGE 65 SSN# [id number] GENDER male MARITAL STATUS RACE unknown race PREF. LANGUAGE (IF NON-THAI) Setswana ADMIT FROM 01 - Home (private home/apt. board/care, assisted living, half-way, transitional living) PRE-HOSPITAL LIVING SETTING 01 - Home (private home/apt. board/care, assisted living, half-way, transitional living) HOME TYPE AND DETAILS Type of home: single family house # of steps to enter the residence: 2 # of levels in the residence: 1 # of steps within the residence: 0 PRE-HOSPITAL LIVING WITH Alone FAMILY SUPPORT Yes PRIMARY FAMILY CONTACT NAME LAM PEGUERO PRIMARY FAMILY CONTACT PHONE PRIMARY FAMILY CONTACT RELATIONSHIP DAUGHTER PHONE PRIMARY FAMILY CONTACT ON ADM.? no IS PRIMARY FAMILY CONTACT AUTH. REP.? no 1ST EMERGENCY CONTACT LAM PEGUERO 1ST CONTACT PHONE 1ST CONTACT RELATIONSHIP DAUGHTER PHONE 1ST CONTACT ON ADM. no IS 1ST CONTACT AUTH. REP.? no PHONE 2ND CONTACT ON ADM.? no PATIENT EMPLOYMENT STATUS Retired (for age) PATIENT EMPLOYER No Employer PAYOR INFORMATION: 1ST PAYOR NAME MEDICARE 1ST PAYOR PHONE 1ST PAYOR INJURY/ILLNESS DUE TO ACCIDENT? No ANOTHER DEMOCRAT RESPONSIBLE? No PRIMARY REHAB/ACUTE DIAGNOSIS: CHF ONSET DATE 08/20/2020 REHAB IMPAIRMENT CATEGORY ([place]): 14 Cardiac does NOT meet 60% rule PRIMARY DIAGNOSIS-RELATED SURGERIES: N/A SUMMARY OF ACUTE HOSPITALIZATION: Pt. is a 65 yo Right-handed male of unknown race. On 08/20/2020 he was admitted to [facility] with diagnosis CHF. His impairment category is Cardiac 09 - Cardiac Disorders (09). Pre-morbidly, Pt. was independent/mod-I in Balance, Safety Awareness, Self-Care, Sphincter Control, a nd Transfers Control; and he had good Endurance and Transfers Control. Currently, he has deficits of Endurance, Safety Awareness, Locomotion, Transfers Control, and Sphinct er Control. Pt. is now referred to [facility] for acute in-patient rehabilitation in order to maximize patient's functional independence in activities of daily living, strength, ROM, and mobi lity. Patient has realistic goal of being discharged at assistance level 7-Ind to reside at Home with Pt s elf. PAST MEDICAL HISTORY ANEMIA CAB HYPERTENSION DIABETIC CHF DM KIDNEY CA CT CHEST ABD PEL W NPLSM KIDNEY LUNG PED PAST SURGICAL HISTORY: CABG PACEMAKER A/P MEDICATION ALLERGIES: No Known Drug Allergies (NKDA) ENVIRONMENTAL ALLERGIES: - Substance Allergies None Known - Other Allergies None Known CODE STATUS: Full code WEIGHT/HEIGHT/BMI: WEIGHT 196 lbs HEIGHT 5' 10" BMI 28.1 DIET: - Diet Type Regular - Diet - Solid Texture Regular - Diet - Liquid Texture Regular - Tube Feed N/A REVIEW OF SYSTEMS: - Gen Alert and awake Lying in bed No apparent distress Oriented to: person, time, and place - Vital Signs Temperature: 97.3 F SBP/DBP: 139/68 Pulse: 70 Resp: 16 Vital signs stable, afebrile - CVS RRR VITAL SIGNS Temperature: 97.3 F SBP/DBP: 139/68 Pulse: 70 Resp: 16 Vital signs stable, afebrile MEDICATIONS/TREATMENT: Other- See attached MAR (Medication Administration Record). CURRENT SPHINCTER CONTROL: Pre-hospital bladder status: unspecified # of bladder accidents in the last 7 days prior to screenin Pre-hospital bowel status: unspecified # of bowel accidents in the last 7 days prior to screenin Last Bowel Movement Date: 08/20/2020 CURRENT LOCOMOTION STATUS: distance walked 5 feet WITH WALKER 20 W WALKER DETAILED CURRENT FUNCTIONAL STATUS: - Bladder accident frequency: 7-Ind - No accidents in the past 7 days - Bowel accident frequency: 7-Ind - No accidents in the past 7 days - Walking score based on distance walked: 0(N/A) score based on distance walked: 1(<=50ft) - Wheelchair score based on distance traveled: 0(N/A) QI SCORES: - Self-Care A. Eating 06-Independent B. Oral hygiene 03-Partial/moderate assistance C. Toileting hygiene 03-Partial/moderate assistance E. Shower/bathe self 03-Partial/moderate assistance F. Upper body dressing 03-Partial/moderate assistance G. Lower body dressing 03-Partial/moderate assistance H. Putting on/taking off footwear 06-Independent - Mobility A. Roll left and right 04-Supervision or touching assistance B. Sit to lying 06-Independent C. Lying to sitting on side of bed 03-Partial/moderate assistance D. Sit to stand 03-Partial/moderate assistance E. Chair/yrm-bp-cwyeh transfer 03-Partial/moderate assistance F. Toilet transfer 03-Partial/moderate assistance G. Car transfer 03-Partial/moderate assistance I. Walk 10 feet 03-Partial/moderate assistance J. Walk 50 feet with two turns 88-Not attempted due to medical condition or safety concerns K. Walk 150 feet 88-Not attempted due to medical condition or safety concerns L. Walking 10 feet on uneven surfaces 03-Partial/moderate assistance M. 1 step (curb) 88-Not attempted due to medical condition or safety concerns N. 4 steps 88-Not attempted due to medical condition or safety concerns O. 12 steps 03-Partial/moderate assistance P. Picking up object 04-Supervision or touching assistance R. Wheel 50 feet with two turns 88-Not attempted due to medical condition or safety concerns S. Wheel 150 feet 88-Not attempted due to medical condition or safety concerns - Bladder and Bowel Bladder continence Bowel continence - Endurance Fair - Balance Fair - Safety Awareness Fair CURRENT FUNC. DEFICITS: Mobility, Endurance, Balance, Safety Awareness, and Self-Care CURRENT / PREVIOUS ASSISTIVE DEVICES: Rolling Walker HISTORY OF FALLS. HAS THE PATIENT HAD TWO OR MORE FALLS IN THE PAST YEAR OR ANY FALL WITH INJURY IN T HE PAST YEAR?: Yes PRIOR SURGERY. DID THE PATIENT HAVE MAJOR SURGERY DURING THE 100 DAYS PRIOR TO ADMISSION?: No THERAPY NOTES FROM ACUTE CARE: Attached. SPECIAL NEEDS: - Safety Concerns Skin breakdown precautions needed due to skin breakdown risk PATIENT NEEDS ACTIVE AND ONGOING THERAPEUTIC INTERVENTION OF MULTIPLE THERAPY DISCIPLINES, INCLUDING: - Dietary and Nutrition Adequate Nutrition. Nutritional Education. Nutritional Supplements. PATIENT NEEDS CLOSE MEDICAL SUPERVISION BY A REHABILITATION PHYSICIAN FOR: Coordination of Treatment Team PATIENT REQUIRES 24X7 REHAB NURSING FOR MEDICAL AND FUNCTIONAL MGT. OF THE FOLLOWING DEFICITS: Disease Management Medication Management Patient/Family Education Providing Safe Environment PATIENT REQUIRES INTENSIVE, COORDINATED INTERDISCIPLINARY APPROACH TO REHAB: Arranging Home Equipment/Services Discharge Planning Family Intervention/Training Emt Basic/Case Management PATIENT REHAB POTENTIAL: Philipp CANTU is able and expected to receive 3 hours of individualized therapy daily on at least 5 of ever y 7 days Philipp CANTU's prognosis for significant practical improvement within a reasonable period of time appears Good Expected level of measurable improvement will be of a practical value to Philipp CANTU's functional capacit y or adaptations to impairments Has a viable Discharge Plan Medically appropriate; condition is sufficiently stable to participate in intensive rehab program DISCHARGE PLAN: - Estimated Length of Stay (days) 10. - Consensus on plan Discharge plan has been discussed with primary caregiver. Patient/Family is in agreement with the debra n. Primary caregiver is in agreement with the plan. - Patient/Family Goals Return home independently. - Planned Living Setting Upon Discharge Home, to live alone. Transitional Living. Primary caregiver: Pt self. RECOMMENDED CARE LEVEL: IRF RECOMMENDATION DETAILS: Recommended Admission to Comprehensive Rehabilitation Program to Increase Functional [place] SCREENER'S COMPLETENESS CONFIRMATION: - Screening Confirmation The patient data collection on this preadmission screening form is finished PHYSICIANS REVIEW AND ADMISSION DETERMINATION Admit - Based on my review of the Pre-Admission Screening results, in my medical judgment and experie nce, I concur with the findings and recommend admission to [facility], as this patient requires an IRF level of care. SIGNATURE PANEL: Nutrition Services Assistant - [electronically] signed by Christ Cobian on 08/20/2020 at 14:20 (STOCK CRANE OPERATOR) Nutrition Services Assistant - [electronically] signed by Jasosn Santiago PT on 08/20/2020 at 14:40 (STOCK CRANE OPERATOR) Physician Reviewer - [electronically] signed by Dr. Lonny Hernandez M.D. on 08/31/2020 at 18:27 (STOCK CRANE OPERATOR )
--- NOTE | 2020-08-31 18:29 | R.DS ---
DISCHARGE SUMMARY FACILITY [facility] MR# [id number] NAME EVELIN CANTU ADDRESS [address] [facility] [place] [address] PHONE DATE OF 1955 AGE 65 SSN# [id number] GENDER Male DEXTERITY Right-handed MARITAL STATUS RACE Unknown race ENCOUNTER PHYSICIAN Dr. Lonny Hernandez M.D. REFERRING DOCTOR REFERRING FACILITY [facility] DISCHARGE DIAGNOSIS: - Cardiac 09 - Cardiac Disorders (09) CHF. DATE OF ADMISSION 08/20/2020 16:24 (HOSPICE HOME CARE COORDINATOR) MEDICATION ALLERGIES: No Known Drug Allergies (NKDA) ENVIRONMENTAL ALLERGIES: - Substance Allergies None Known - Other Allergies None Known DISCHARGE MEDICATIONS: Other- ContinueSee attached MAR (Medication Administration Record). NURSING: - Shower allowing shower ACTIVITIES OOB only with supervision THERAPIES: - Dietary and Nutrition Adequate Nutrition Nutritional Education Nutritional Supplements HISTORY OF PRESENT ILLNESS: Pt. is a 65 yo Right-handed male of unknown race.On 08/20/2020 he was admitted to [facility] with diagnosis CHF.His impairment category is Cardiac 09 - Cardiac Disorders ().Pre-morbidly, Pt. was independent/mod-I in Balance, Safety Awareness, Self-Care, Sphincter Control, and Transfers Control; and he had good Endurance and Transfers Control.Currently, he has deficits of Endurance, Saf ety Awareness, Locomotion, Transfers Control, and Sphincter Control.Pt. is now referred to [facility] for acute in-patient rehabilitation in order to maximize patient's functional independence in activities of daily living, strength, ROM, and mobility.- Rehab Goal Patient has realistic goal of being discharged at assistance level 7-Ind to reside at Home with Pt s elf. HOSPITAL COURSE: DIET - LIQUID TEXTURE: On 08/21/2020 Pt was upgraded to Regular Diet - Liquid Texture. DIET - SOLID TEXTURE: On 08/21/2020 Pt was upgraded to Regular Diet - Solid Texture. DIET TYPE: On 08/21/2020 Pt was upgraded to Regular Diet Type. TUBE FEED: On 08/21/2020 Pt was changed to N/A Tube Feed. DISCHARGE PHYSICAL EXAM - Gen Alert and awake Lying in bed No apparent distress Oriented to: person, time, and place - Skin Dark skin discoloration of both legs consistent with lymphedema and stasis dermatitis Normacephalic - Eyes No discharge - ENMT No abnormalities - Neck No stiffness - CVS RRR - Chest Mildly decreased breath sounds bilaterally. - Abd + distended - GI + bowel sound Deferred - No abnormalities - Ext Moderate edema in both lower extremities. - MSK 4+/5 weakness in both lower extremity. - Neuro No focal deficits - Psych No abnormalities FUNCTIONAL STATUS: - Self-Care A. Eating 6-Constance B. Grooming 6-Constance C. Bathing 6-Constance D. Dressing - Upper 6-Constance E. Dressing - Lower 6-Constance F. Toileting 6-Constance - Sphincter Control G. Bladder control 6-Constance H. Bowel control 6-Constance - Transfers Control I. Bed/Chair/Wheelchair 6-Constance J. Toilet 6-Constance K. Tub/Shower 6-Constance - Locomotion L. Walk/Wheelchair (B) 6-Constance M. Stairs 5-sup - Communication N. Comprehension (B) 6-Constance O. Expression (B) 6-Constance - Social Cognition P. Social Interaction 7-Ind Q. Problem Solving 7-Ind R. Memory 7-Ind - Endurance Good - Balance Good - Safety Awareness Good QI SCORES: - Self-Care A. Eating 06-Independent B. Oral hygiene 03-Partial/moderate assistance C. Toileting hygiene 03-Partial/moderate assistance E. Shower/bathe self 03-Partial/moderate assistance F. Upper body dressing 03-Partial/moderate assistance G. Lower body dressing 03-Partial/moderate assistance H. Putting on/taking off footwear 06-Independent - Mobility A. Roll left and right 04-Supervision or touching assistance B. Sit to lying 06-Independent C. Lying to sitting on side of bed 03-Partial/moderate assistance D. Sit to stand 03-Partial/moderate assistance E. Chair/yft-kz-ehjyy transfer 03-Partial/moderate assistance F. Toilet transfer 03-Partial/moderate assistance G. Car transfer 03-Partial/moderate assistance I. Walk 10 feet 03-Partial/moderate assistance J. Walk 50 feet with two turns 88-Not attempted due to medical condition or safety concerns K. Walk 150 feet 88-Not attempted due to medical condition or safety concerns L. Walking 10 feet on uneven surfaces 03-Partial/moderate assistance M. 1 step (curb) 88-Not attempted due to medical condition or safety concerns N. 4 steps 88-Not attempted due to medical condition or safety concerns O. 12 steps 03-Partial/moderate assistance P. Picking up object 04-Supervision or touching assistance R. Wheel 50 feet with two turns 88-Not attempted due to medical condition or safety concerns S. Wheel 150 feet 88-Not attempted due to medical condition or safety concerns - Bladder and Bowel Bladder continence Bowel continence - Endurance Fair - Balance Fair - Safety Awareness Fair DISCHARGE INSTRUCTIONS: - N/A Eliquis 2.5 mg twice daily, Aspirin 81 mg daily. DISCHARGE PLAN, FOLLOW UP CARE PROVISIONS: - Estimated Length of Stay (days) 10. - Consensus on plan Discharge plan has been discussed with primary caregiver. Patient/Family is in agreement with the debra n. Primary caregiver is in agreement with the plan. - Patient/Family Goals Return home independently. - Planned Living Setting Upon Discharge Home, to live alone. Transitional Living. Primary caregiver: Pt self. SIGNATURE PANEL: (HOSPICE HOME CARE COORDINATOR)
== END 2020-08-28 18:05 | DRG 948 ==
LOC: 5TH 16:24
PROVIDERS: ADMIT Psychiatry & Neurology Neurology with Special Qualifications in Child Neurology; ATTEND Psychiatry & Neurology Neurology with Special Qualifications in Child Neurology
PROC: 0HBRXZZ Excision of Toe Nail, External Approach (ICD-10-PCS; principal; 2020-08-21)
DX: R53.81 Other malaise (principal); C79.9 Secondary malignant neoplasm of unspecified site; I25.10 Atherosclerotic heart disease of native coronary artery without angina pectoris; E11.51 Type 2 diabetes mellitus with diabetic peripheral angiopathy without gangrene; E11.621 Type 2 diabetes mellitus with foot ulcer; L97.529 Non-pressure chronic ulcer of other part of left foot with unspecified severity; E78.5 Hyperlipidemia, unspecified; B35.1 Tinea unguium; I10 Essential (primary) hypertension; Z85.528 Personal history of other malignant neoplasm of kidney; Z95.0 Presence of cardiac pacemaker; Z95.1 Presence of aortocoronary bypass graft; Z88.0 Allergy status to penicillin; Z60.2 Problems related to living alone; Z79.82 Long term (current) use of aspirin; Z79.899 Other long term (current) drug therapy; Z20.822 Contact with and (suspected) exposure to COVID-19
CPT/HCPCS: 36415; 71045; 71260; 74177; 80048; 80076; 81001; 82040; 82947; 83690; 83735; 83880; 84132; 84134; 84484; 85025; 85610; 87086; 87088; 87324; 87449; 87493; 90471; 96360; 96361; 97110; 97112; 97116; 97161; 97165; 97530; 99285; G0378; J1650; J3590; J7030; J7512; Q2035; Q9967; U0002; U0003